=== PATIENT | female | born 2005 | race Caucasian/White ===

== ENCOUNTER → 2024-11-04 | Outpatient (CLI) | payer OTHER, SELFPAY ==
[2024-11-04 13:02] LABS: AST(SGOT) 23 U/L (<=31); Alanine Aminotransfer ALT/SGPT 23 U/L (<=34); Cholesterol 170 mg/dL (<=190); High Density Lipoprotein 53 mg/dL; Low Density Lipoprotein Calc. 96 mg/dL; Triglycerides 104 mg/dL; Very Low Density Lipoprotein 21 mg/dL (5-40); cholesterol:hdl ratio screen 3.19
== END | disposition home or self-care (01) ==
LOC: MTLAB 10:52
PROVIDERS: PCP Pediatrics; Referring Provider Physician Assistant; Visit Provider Physician Assistant
DX: L70.0 Acne vulgaris (principal); Z79.899 Other long term (current) drug therapy
CPT/HCPCS: 36415; 80061; 84450; 84460

== ENCOUNTER → 2024-11-23 | Outpatient (CLI) | payer OTHER, SELFPAY ==
[2024-11-23 16:07] LABS: Internal QC Validated? YES +Cl - CLEAR BKGD; Pregnancy, Urine Negative Negative; Record Kit Lot#,Urine Preg 947241
== END | disposition home or self-care (01) ==
LOC: MTLAB 13:54
PROVIDERS: PCP Pediatrics; Referring Provider Physician Assistant; Visit Provider Physician Assistant
DX: Z79.899 Other long term (current) drug therapy (principal)
CPT/HCPCS: 81025

== ENCOUNTER → 2025-03-08 | Outpatient (CLI) | payer OTHER, SELFPAY ==
--- OUTSIDE RECORDS SUMMARY | 2025-03-08 12:13 | XMS RPT_ITS | CCD ---
Author Organization [facility] Care Team Providers Care Rock Breaker Name Role Phone Franklyn Awan MD Primary Care Provider Franklyn Awan MD Primary Care Provider [phone] FRANKLYN AWAN Primary Care Unavailable REFERRED, SELF Referring Unavailable WILLIE PINO Attending Unavailable FRANKLYN AWAN Primary Care Unavailable WILLIE PINO Attending Unavailable WILLIE PINO Referring Unavailable RICCI DAVIS Admitting Unavailable RICCI DAVIS Attending Unavailable WILLIE PINO Referring Unavailable FRANKLYN AWAN Primary Care Unavailable WILLIE PINO Attending Unavailable RICCI DAVIS Attending Unavailable FRANKLYN AWAN Primary Care Unavailable REFERRED, SELF Referring Unavailable ROSA BARR, COLIN Hernandez Primary Care Unavailable KAELYN PREVENTIVE MEDICINE PHYSICIAN-SENIOR ASSET MANAGER, TARAH Attending Unavailcathie BENAVIDEZ PREVENTIVE MEDICINE PHYSICIAN-CNM, JAQUELIN M Attending Jimmy LEE MD, COLIN Hernandez Primary Care Unavailable Franklyn Awan MD Primary Care Provider [phone] ROSA BARR, COLIN Hernandez Primary Care Unavailable DANGELO PREVENTIVE MEDICINE PHYSICIAN-SENIOR ASSET MANAGER, ELIJHA Hoff Attending Unavail able Martínez PREVENTIVE MEDICINE PHYSICIAN.SENIOR ASSET MANAGER, Jeannie Primary Care Provider JAQUELIN BENAVIDEZ Attending Unavailable JAQUELIN BENAVIDEZ Referring Unavailable EMPERATRIZ FRANKLYN C Primary Care Unavailable PARAM BENAVIDEZICA Referring Unavailable RANDI AWANA C Primary Care Unavailable ASHLEY, JAQUELIN Referring Unavailable RANDI AWANA C Primary Care Unavailable JAQUELIN BENAVIDEZ Attending Unavailable JAQUELIN BENAVIDEZ Referring Unavailable RANDI AWANA C Primary Care Unavailable JEANNIE SOLIZ Referring Unavailable MARTÍNEZ, JEANNIE Primary Care Unavailable JEANNIE SOLIZ Attending Unavailable SELF Referring Unavailable RANDI AWANA C Primary Care Unavailable ASHLEY, JAQUELIN Referring Unavailable EMPERATRIZ, FRANKLYN C Primary Care Unavailable ASHLEY, JAQUELIN Referring Unavailable FRANKLYN AWAN C Primary Care Unavailable JAQUELIN BENAVIDEZ Attending Unavailable FRANKLYN AWAN Primary Care Unavailable Dr. Ricci Carreon MD Primary Care Provider Graf MALLORY, Zaynab Attending Provider Graf MALLORY, Zaynab Referring Provider [phone] Zaynab Sepulveda Referring Unavailable Ricci Carreon Primary Care Unavailable Graf BRANDON, Zaynab Attending Unavailable Zaynab Sepulveda Referring Unavailable Ricci Carreon Primary Care Unavailable Zaynab Sepulveda Attending Unavailable Allergies Allergy Classification Reported Allergen(s) Allergy Type Date of Onset Reaction(s) Facility (19 sources) Sulfamethoxazole / Trimethoprim; Translations: [SULFAMETHOXAZOLE-T RIMETHOPRIM] Drug Allergy 03-09-20 19 Anaphylaxis, Hives [facility] (2 sources) Sulfonamides (Antibiotic); Translations: [SULFA ANTIBIOTICS] Propensity to adverse reactions 06-16-19 20 Anaphylaxis [facility] (17 sources) Sulfonamides (Antibiotic); Translations: [SULFA (SULFONAMIDE ANTIBIOTICS)] Drug Allergy 09-29-19 21 Hives, Swelling [facility] Work Phone: (2 sources) Sulfamethoxazole Drug Allergy 06-27-19 20 UNKNOWN [facility] (2 sources) Sulfonamides (Antibiotic) Allergy to substance 06-27-19 20 UNKNOWN [facility] (2 sources) Trimethoprim Drug Allergy 06-27-19 20 UNKNOWN [facility] (1 source) Sulfamethoxazole Drug Allergy 06-27-19 [facility] (1 source) Sulfonamides (Antibiotic) Drug allergy (disorder) 06-27-19 [facility] (1 source) Trimethoprim Drug Allergy 06-27-19 20 [facility] Medications Current Medications Medication Drug Class(es) Dates Sig (Normalized) Sig (Original) adapalene 0.003 mg/mg / benzoyl peroxide 0.025 mg/mg topical gel (1 source) Retinoid Adapalene-Benzoy l Peroxide (EPIDUO FORTE) 0.3-2.5 % GEL Apply to affected area 0 Active amoxicillin 500 mg oral capsule (3 sources) Penicillin-class Antibacterial Start: 05-02-2022 take 4 capsules by mouth once as needed, then take 1 capsule by mouth every hour as needed amoxicillin (AMOXIL) 500 MG capsule Take 4 Capsules (2,000 mg) by mouth once as needed for Other (1 hour prior to dental cleaning or procedure) for up to 1 dose 4 Capsule 3 05/02/2022 Active Start: 06-27-2019 End: 07-07-2019 take 2 capsules by mouth twice daily Amoxicillin 500 mg capsule Discontinued 1000 mg PO TWICE A DAY 40 10 0 June 27, 2019 1:00am July 06, 2019 1:00am July 07, 2019 1:07am ascorbic acid 1000 mg oral tablet (2 sources) Vitamin C Start: 08-26-2024 End: 02-22-2025 take 1 tablet by mouth once daily Ascorbic Acid (VITAMIN C) 1,000 mg tablet Indications: Iron deficiency anemia due to chronic blood loss Take 1 tablet by mouth once daily. 90 tablet 1 08/26/2024 02/22/2025 Active aspirin 81 mg chewable tablet (1 source) Platelet Aggregation Inhibitor, Nonsteroidal Anti-inflammatory Drug Start: 05-02-2022 End: 05-09-2022 take 1 tablet by mouth once daily in the evening aspirin 81 MG chewable tablet Take 1 Tablet (81 mg) by mouth daily for 7 days Start tonight at 8 PM 0 05/02/2022 05/09/2022 Active Aspirin-Acetami nophen-Caffeine (EXCEDRIN MIGRAINE PO) (1 source) Aspirin-Acetamin oph en-Caffeine (EXCEDRIN MIGRAINE PO) Take by mouth 0 Active ferrous sulfate 325 mg delayed release oral tablet (9 sources) Start: 08-26-2024 End: 02-22-2025 take 1 tablet by mouth twice daily at mealtime ferrous sulfate 325 mg (65 mg iron) EC tablet Indications: Iron deficiency anemia due to chronic blood loss Take 1 tablet by mouth two times a day with meals. 180 tablet 1 08/26/2024 02/22/2025 Active End: 08-26-2024 ferrous sulfate 325 mg (65 m g iron) EC tablet Take 325 mg by mouth. 08/26/2024 Discontinued ibuprofen 200 mg oral capsule (2 sources) Nonsteroidal Anti-inflammatory Drug Start: 06-27-2019 take 1 capsule by mouth every six hours as needed Ibuprofen 200 mg capsule Active 200 mg PO EVERY 6 HOURS as needed June 27, 2019 1:00am levonorgestrel 0.545263 mg/hr intrauterine system (10 sources) Progestin, Progestin-containing Intrauterine Device Start: 02-28-2024 End: 02-26-2032 levonorgestrel (MIRENA) 21 mcg/24 hr (8 yrs) 52 mg IUD 1 Each by INTRAUTERINE route as directed. 1 Each 02/28/2024 02/26/2032 Active Start: 02-28-2024 End: 02-28-2024 1 Each, INTRAUTERINE, ONCE ( UP TO 30 DAYS AMB), 1 dose, On Sat02/28/24 at 1000, Hazardous Potential Reproductive Risk Drug: Use appropriate PPE. loratadine 10 mg oral capsule (1 source) Loratadine 10 MG CAPS Take by mouth 0 Active metroNIDAZOLE 500 mg oral tablet (3 sources) Nitroimidazole Antimicrobial Start: End: take 1 tablet by mouth twice daily metroNIDAZOLE (FLAGYL) 500 mg tablet Take 1 tablet by mouth two times a day for 7 days. 14 tablet 01/27/2024 02/03/2024 Active nitrofurantoin, macrocrystals 25 mg / nitrofurantoin, monohydrate 75 mg oral capsule (2 sources) Nitrofuran Antibacterial Start: End: take 1 capsule by mouth twice daily nitrofurantoin monohydrate and macrocrystal (MACROBID) 100 mg capsule Take 1 capsule by mouth two times a day for 7 days. 14 capsule 05/04/2024 05/11/2024 Active spironolactone 100 mg oral tablet (3 sources) Aldosterone Antagonist Start: take 1 tablet by mouth once daily spironolactone (ALDACTONE) 100 mg tablet Take 100 mg by mouth once daily. 07/20/2024 Active Completed/Discontinued Medications Medication Drug Class(es) Dates Sig (Normalized) Sig (Original) acetaminophen 500 mg oral tablet (4 sources) Start: 05-02-2022 End: 05-02-2022 acetaminophen (TYLENOL) tablet 1,000 mg Start: 07-03-2019 take 650 mg by mouth every four hours as needed for pain Acetaminophen 160 MG CHEW Take 650 mg by mouth every 4 hours as needed for Pain 0 07/03/2019 Active Start: 06-27-2019 take 1 capsule by [facility] once as needed Acetaminophen (Tylenol) 325 mg capsule Active 325 mg PO ONCE as needed June 27, 2019 1:00am calcium chloride 0.0014 meq/ml / potassium chloride 0.004 meq/ml / sodium chloride 0.103 meq/ml / sodium lactate 0.028 meq/ml injectable solution (1 source) Start: 05-02-2022 End: 05-02-2022 Lactated Ringers IV copper 313 mg drug implant (7 sources) Copper-containing Intrauterine Device Start: 10-18-2020 End: 02-28-2024 copper (PARAGARD) 380 square mm intrauterine device 1 Intra Uterine Device by INTRAUTERINE route as directed. 1 Intra Uterine Device 0 10/18/2020 07/03/2022 Discontinued Comment on above: 1 Intra Uterine Sheree ce by INTRAUTERINE route as directed. isoproterenol 6 mcg/mL in Dextrose 5% 50 mL infusion (1 source) Start: 05-02-2022 End: 05-02-2022 isoproterenol 6 mcg/mL in Dextrose 5% 50 mL infusion lactobacillus acidophilus 460 mg oral capsule (1 source) Start: 10-24-2020 End: 07-03-2022 take 1 capsule by mouth once daily Lactobacillus acidophilus (FLORAJEN ACIDOPHILUS) 20 billion cell cap Indications: Dysuria Take 1 capsule by mouth once daily. 30 capsule 0 10/24/2020 07/03/2022 Discontinued Comment on above: Take 1 capsule by [facility] once daily. phenazopyridine hydrochloride 100 mg oral tablet (1 source) Start: 10-24-2020 End: 07-03-2022 take 1 tablet by mouth three times daily as needed phenazopyridine (PYRIDIUM) 100 mg tablet Indications: Dysuria Take 1 tablet by mouth three times daily as needed. 9 tablet 0 10/24/2020 07/03/2022 Discontinued Comment on above: Take 1 tablet by [facility] three times daily as needed. 5 ml sodium chloride 9 mg/ml injection (1 source) Start: 05-02-2022 End: 05-02-2022 2 mL PRN (0.0273 ml/kg/DOSE), Intravenous, at 0-999 mL/hr, Line Care, Starting on Sat05/02/22 at 1221, For 90 days Problems Active Problems Problem Classification Problem Date Documented Date Episodic/Chronic Cardiac dysrhythmias (19 sources) AV reagan re-entry tachycardia; Translations: [Supraventricular tachycardia] Onset: 06-17-2019 Chronic Cardiac dysrhythmias (1 source) Palpitations; Translations: [Palpitations] 07-02-2019 Episodic Contraceptive and procreative management (2 sources) Intrauterine contraceptive device in situ; Translations: [Encounter for routine checking of intrauterine contraceptive device] 01-31-2024 Episodic Deficiency and other anemia (5 sources) Iron deficiency anemia due to blood loss; Translations: [Iron deficiency anemia secondary to blood loss (chronic)] Onset: 08-25-2024 08-25-2024 Chronic Deficiency and other anemia (1 source) Iron deficiency anemia secondary to blood loss (chronic); Translations: [Iron deficiency anemia due to chronic blood loss] Onset: 08-25-2024 Chronic Headache; including migraine (1 source) Migraine; Translations: [Migraine, unspecified, not intractable, without status migrainosus] Onset: 03-07-2017 03-07-2017 Chronic Immunizations and screening for infectious disease (6 sources) Patient encounter status; Translations: [Encounter for screening for infections with a predominantly sexual mode of transmission] 01-31-2024 Episodic Joint disorders and dislocations; trauma-related (1 source) Patellofemoral syndrome of left knee; Translations: [Patellofemoral disorders, left knee] Onset: 10-25-2017 10-25-2017 Chronic Lymphadenitis (5 sources) Generalized enlarged lymph nodes; Translations: [Generalized enlarged lymph nodes] Onset: 08-25-2024 08-25-2024 Episodic Nonmalignant breast conditions (1 source) Fibrocystic change of left breast; Translations: [Diffuse cystic mastopathy of left breast] Chronic Nonmalignant breast conditions (2 sources) Solitary cyst of breast; Translations: [Solitary cyst of left breast] Episodic Other aftercare (1 source) Other assisted (current) drug therapy; Translations: [Other press tender long goods (current) drug therapy] Onset: 12-08-2024 Episodic Other female genital disorders (2 sources) Abnormal uterine bleeding; Translations: [Abnormal uterine and vaginal bleeding, unspecified] 01-24-2024 Chronic Other female genital disorders (1 source) Abnormal uterine and vaginal bleeding, unspecified; Translations: [Abnormal uterine bleeding (AUB)] Onset: 01-31-2024 Chronic Other skin disorders (1 source) Acne vulgaris; Translations: [Acne vulgaris] Onset: 11-10-2024 Episodic Other upper respiratory disease (16 sources) Allergic rhinitis; Translations: [Allergic rhinitis, unspecified] Onset: 11-28-2015 11-28-2015 Chronic Past or Other Problems Problem Classification Problem Date Documented Date Episodic/Chronic Acquired foot deformities (16 sources) Talipes planus; Translations: [Flat foot [pes planus] (acquired), unspecified foot] Onset: 12-02-2013 12-02-2013 Episodic Acute posthemorrhagic anemia (2 sources) Acute posthemorrhagic anemia; Translations: [Acute posthemorrhagic anemia] Onset: 04-24-2024 04-24-2024 Episodic Genitourinary symptoms and ill-defined conditions (1 source) Hematuria, unspecified; Translations: [Hematuria, unspecified type] Onset: 05-01-2024 Episodic Syncope (16 sources) Vasovagal syncope; Translations: [Syncope and collapse] Onset: 11-30-2015 11-30-2015 Episodic Results Test Name Value Interpretation Reference Range Facility ,Urineon 11-23-2024 Beta HCG ( test) Ql (U) Negative Normal [facility] Comment on above: Result Comment: Very dilute urine specimens, as indicated by a low specific gravity, may not contain marketing development representative levels of hCG. If is still suspected, a first morning urine specimen should be collected 48 hours later and tested. Performed By: #### L 400.7600 #### [facility] [address] [place], [place], [id number] Urine testOrdered By: Zaynab Welch on 11-23-2024 HCG ( test) Ql (U) Negative [facility] Comment on above: Very dilute urine sp ecimens, as indicated by a low specificgravity, may not contain marketing development representative levels of hCG. If is still suspected, a first morning urinespecimen should be collected 48 hours later and tested. AST(SGOT)on 11-04-2024 AST [Catalytic activity/Vol] 23 U/L Normal <=31 [facility] Comment on above: Performed By: #### L 501.4100, L501.4405, L500.4100 #### [facility] [address] [place], [address] Alanine Aminotransferas (SGP T)on 11-04-2024 ALT [Catalytic activity/Vol] 23 U/L Normal <=34 [facility] Comment on above: Performed By: #### L 501.4100, L501.4405, L500.4100 #### [facility] [address] [place], [address] Calculated very low density lipoprotein (VLDL) cholesterol measurementOrdered By: Zaynab Welch on 11-04-2024 Calculated very low density lipoprotein (VLDL) cholesterol measurement 21 mg/dL 5-40 [facility] LDL calc ser/plasOrdered By: Zaynab Welch on 11-04-2024 Cholesterol in LDL [Mass/Vol] 96 mg/dL [facility] Comment on above: Rqolkphozs=969-381 m g/dL & Higher Ytcs=706 mg/dL or greater Laboratory - Chemistry and C hemistry - challengeOrdered By: Zaynab Welch on 11-04-2024 AST [Catalytic activity/Vol] 23 U/L <32 [facility] Lipid Profileon 11-04-2024 CHOL:HDL 3.19 Normal [facility] Comment on above: Performed By: #### L 501.4100, L501.4405, L500.4100 #### [facility] [address] [place], [address] Cholesterol [Mass/Vol] 170 mg/dL Normal <=190 [facility] Comment on above: Result Comment: Chol esterol level, Desirable <200 mg/dL Borderline high cholesterol 200-239 mg/dL High cholesterol >=240 mg/dL Recommendations of the NCEP Adult Treatment Panel for the following risk-cutoff thresholds for the [place] population. Performed By: #### L 501.4100, L501.4405, L500.4100 #### [facility] [address] [place], [address] Cholesterol in HDL [Mass/Vol] 53 mg/dL Normal [facility] Comment on above: Result Comment: [place] Cholesterol Education Program (NCEP) guidelines: <40 mg/dL: Low HDL-cholesterol (major risk factor for CHD) >= 60 mg/dL: High HDL-cholesterol (negative risk factor for CHD) HDL-cholesterol is affected by a number of factors, e.g. smoking, exercise, hormones, sex and age. Performed By: #### L 501.4100, L501.4405, L500.4100 #### [facility] [address] [place], [address] Cholesterol in LDL [Mass/Vol] 96 mg/dL Normal [facility] Comment on above: Result Comment: Bord poqdzg=581-813 mg/dL Higher Adyb=327 mg/dL or greater Performed By: #### L 501.4100, L501.4405, L500.4100 #### [facility] [address] [place], [address] Cholesterol in VLDL [Mass/Vol] 21 mg/dL Normal 5-40 [facility] Comment on above: Performed By: #### L 501.4100, L501.4405, L500.4100 #### [facility] [address] [place], [address] Triglyceride [Mass/Vol] 104 mg/dL Normal [facility] Comment on above: Result Comment: The drugs N-Acetylcysteine and Metamizole may falsely depress this assay. Normal range: <150 mg/dL Borderline High: 150-199 mg/dL High: 200-499 mg/dL Very High: >500 mg/dL Performed By: #### L 501.4100, L501.4405, L500.4100 #### [facility] [address] [place], [address] Screening total cholesterol/ high density lipoprotein (HDL) cholesterol ratioOrdered By: Zaynab Welch on 11-04-2024 Cholesterol.total/Ch olesterol in HDL [Mass ratio] 3.19 {ratio} [facility] Serum or plasma alanine lentz otransferase (ALT) measurementOrdered By: Zaynab Welch on 11-04-2024 ALT [Catalytic activity/Vol] 23 U/L <35 [facility] Serum or plasma cholesterol in HDL measurement (mass/volume)Ordered By: Zaynab Welch on 11-04-2024 Cholesterol in HDL [Mass/Vol] 53 mg/dL >40 [facility] Comment on above: National Cholesterol Education Program (NCEP) guidelines:<40 mg/dL: Low HDL-cholesterol (major risk factor for CHD)>= 60 mg/dL: High HDL-cholesterol (negative risk factor for CHD)HDL-cholesterol is affected by a number of factors, e.g. smoking, exercise, hormones, sex and age. Serum or plasma cholesterol measurement (mass/volume)Ordered By: Zaynab Welch on 11-04-2024 Cholesterol [Mass/Vol] 170 mg/dL <191 [facility] Comment on above: Cholesterol level, D esirable <200 mg/dLBorderline high cholesterol 200-239 mg/dLHigh cholesterol >=240 mg/dLRecommendations of the NCEP Adult Treatment Panel for the following risk-cutoff thresholds for the [place] population. Triglycerides measurementOrd ered By: Zaynab Welch on 11-04-2024 Triglyceride [Mass/Vol] 104 mg/dL <199 [facility] Comment on above: The drugs N-Acetylcy steine and Metamizole may falsely depress this assay. Normal range: <150 mg/dLBorderline High: 150-199 mg/dLHigh: 200-499 mg/dLVery High: >500 mg/dL CBC W Auto Differential pane l (Bld)on 08-25-2024 Basophils (Bld) [#/Vol] 0.03 10*3/uL Normal <0.11 [facility] Comment on above: Order Comment: Speci men Type: BLOOD SPECIMENOrdering Facility: [facility] Address: [address] [place] [address] Performed By: #### 5 7021-8, 4537-7 ####[facility] [id number] [place] [address] [place] Basophils/100 WBC (Bld) 0.5 % Normal [facility] Comment on above: Order Comment: Speci men Type: BLOOD SPECIMENOrdering Facility: [facility] Address: [address] [place] [address] Performed By: #### 5 7021-8, 4536-7 ####[facility] [id number] [place] [address] [place] Differential cell count method Nom (Bld) Auto Normal [facility] Comment on above: Order Comment: Speci men Type: BLOOD SPECIMENOrdering Facility: [facility] Address: [address] [place] [address] Performed By: #### 5 7021-8, 7 ####[facility] [id number] [place] [address] [place] Eosinophils (Bld) [#/Vol] 0.18 10*3/uL Normal <0.46 [facility] Comment on above: Order Comment: Speci men Type: BLOOD SPECIMENOrdering Facility: [facility] Address: [address] [place] [address] Performed By: #### 5 7021-8, 7 ####[facility] [id number] [place] [address] [place] Eosinophils/100 WBC (Bld) 2.9 % Normal [facility] Comment on above: Order Comment: Speci men Type: BLOOD SPECIMENOrdering Facility: [facility] Address: [address] [place] [address] Performed By: #### 5 7021-8, 7 ####[facility] [id number] [place] [address] [place] Erythrocyte distribution width (RBC) [Ratio] 18.1 % High 11.5-15.0 [facility] Comment on above: Order Comment: Speci men Type: BLOOD SPECIMENOrdering Facility: [facility] Address: [address] [place] [address] Performed By: #### 5 7021-8, 4536-7 ####[facility] [id number] [place] [address] [place] Hematocrit (Bld) [Volume fraction] 35.8 % Low 36.0-46.0 [facility] Comment on above: Order Comment: Speci men Type: BLOOD SPECIMENOrdering Facility: [facility] Address: [address] [place] [address] Performed By: #### 5 7021-8, 7-7 ####[facility] [id number] [place] [address] [place] Hemoglobin (Bld) [Mass/Vol] 11.3 g/dL Low 11.5-15.5 [facility] Comment on above: Order Comment: Speci men Type: BLOOD SPECIMENOrdering Facility: [facility] Address: [address] [place] [address] Performed By: #### 5 7021-8, 4536-7 ####[facility] [id number] [place] [address] [place] Immature granulocytes (Bld) [#/Vol] 10*3/uL Normal <0.10 [facility] Comment on above: Order Comment: Speci men Type: BLOOD SPECIMENOrdering Facility: [facility] Address: [address] [place] [address] Performed By: #### 5 7021-8, 7-7 ####[facility] [id number] [place] [address] [place] Immature granulocytes/100 WBC (Bld) 0.2 % Normal [facility] Comment on above: Order Comment: Speci men Type: BLOOD SPECIMENOrdering Facility: [facility] Address: [address] [place] [address] Performed By: #### 5 7021-8, 7-7 ####[facility] [id number] [place] [address] [place] Lymphocytes (Bld) [#/Vol] 1.92 10*3/uL Normal 1.00-4.00 [facility] Comment on above: Order Comment: Speci men Type: BLOOD SPECIMENOrdering Facility: [facility] Address: [address] [place] [address] Performed By: #### 5 7021-8, 7 ####[facility] [id number] [place] [address] [place] Lymphocytes/100 WBC (Bld) 30.8 % Normal [facility] Comment on above: Order Comment: Speci men Type: BLOOD SPECIMENOrdering Facility: [facility] Address: [address] [place] [address] Performed By: #### 5 7021-8, 7 ####[facility] [id number] [place] [address] [place] MCH (RBC) [Entitic mass] 24.4 pg Low 26.0-34.0 [facility] Comment on above: Order Comment: Speci men Type: BLOOD SPECIMENOrdering Facility: [facility] Address: [address] [place] [address] Performed By: #### 5 7021-8, 7 ####[facility] [id number] [place] [address] [place] MCHC (RBC) [Mass/Vol] 31.6 g/dL Normal 30.5-36.0 [facility] Comment on above: Order Comment: Speci men Type: BLOOD SPECIMENOrdering Facility: [facility] Address: [address] [place] [address] Performed By: #### 5 7021-8, 4536-7 ####[facility] [id number] [place] [address] [place] MCV (RBC) [Entitic vol] 77.3 fL Low 80.0-100.0 [facility] Comment on above: Order Comment: Speci men Type: BLOOD SPECIMENOrdering Facility: [facility] Address: [address] [place] [address] Performed By: #### 5 7021-8, 4536-7 ####[facility] LABCLIA [id number] [address] [address] [place] Monocytes (Bld) [#/Vol] 0.60 10*3/uL Normal <0.87 [facility] Comment on above: Order Comment: Speci men Type: BLOOD SPECIMENOrdering Facility: [facility] Address: [address] [place] [address] Performed By: #### 5 7021-8, 4536-7 ####[facility] LABCLIA [id number] [place] [address] [place] Monocytes/100 WBC (Bld) 9.6 % Normal [facility] Comment on above: Order Comment: Speci men Type: BLOOD SPECIMENOrdering Facility: [facility] Address: [address] [place] [address] Performed By: #### 5 7021-8, 4536-7 ####[facility] LABCLIA [id number] [place] [address] [place] Neutrophils (Bld) [#/Vol] 3.49 10*3/uL Normal 1.45-7.50 [facility] Comment on above: Order Comment: Speci men Type: BLOOD SPECIMENOrdering Facility: [facility] Address: [address] [place] [address] Performed By: #### 5 7021-8, 4536-7 ####[facility] LABCLIA [id number] [place] [id number] [place] Neutrophils/100 WBC (Bld) 56.0 % Normal [facility] Comment on above: Order Comment: Speci men Type: BLOOD SPECIMENOrdering Facility: [facility] Address: [address] [place] [address] Performed By: #### 5 7021-8, 7-7 ####[facility] LABCLIA [id number] [place] [address] [place] Nucleated RBC (Bld) [#/Vol] 10*3/uL Normal <0.01 [facility] Comment on above: Order Comment: Speci men Type: BLOOD SPECIMENOrdering Facility: [facility] Address: [address] [place] [address] Performed By: #### 5 7021-8, 453-7 ####[facility] LABIA [id number] [place] [address] [place] Nucleated RBC/100 WBC (Bld) [Ratio] 0.0 /100 WBC Normal [facility] Comment on above: Order Comment: Speci men Type: BLOOD SPECIMENOrdering Facility: [facility] Address: [address] [place] [address] Performed By: #### 5 7021-8, 453-7 ####[facility] LABIA [id number] [place] [address] [place] Platelet mean volume (Bld) [Entitic vol] 12.8 fL High 9.0-12.7 [facility] Comment on above: Order Comment: Speci men Type: BLOOD SPECIMENOrdering Facility: [facility] Address: [address] [place] [address] Performed By: #### 5 7021-8, 4536-7 ####[facility] LABIA [id number] [place] [id number] [place] Platelets (Bld) [#/Vol] 176 10*3/uL Normal 150-400 [facility] Comment on above: Order Comment: Speci men Type: BLOOD SPECIMENOrdering Facility: [facility] Address: [address] [place] [address] Result Comment: Resu lts checked and verified.No clot detected. Performed By: #### 5 7021-8, 7-7 ####[facility] LABCLIA [id number] [place] [id number] [place] RBC (Bld) [#/Vol] 4.63 10*6/uL Normal 3.90-5.20 [facility] Comment on above: Order Comment: Speci men Type: BLOOD SPECIMENOrdering Facility: [facility] Address: [address] [place] [address] Performed By: #### 5 7021-8, 4537-7 ####[facility] LABIA [id number] [place] [id number] [place] WBC (Bld) [#/Vol] 6.23 10*3/uL Normal 3.70-11.00 [facility] Comment on above: Order Comment: Speci men Type: BLOOD SPECIMENOrdering Facility: [facility] Address: [address] [place] [address] Performed By: #### 5 7021-8, 4537-7 ####[facility] LABIA [id number] [place] [address] [place] CNOVon 08-25-2024 CNOV Office Visit (ZULEYKAPWS ) ----- FRANK WOODRUFF ([id number]) 1 F Date Time Provider Department 08/25/24 8:00 AM JEANNIE SOLIZ During your visit today, we recorded the following information about you: Pulse Blood pressure Weight Height 75/minute 102/65 82.6 kg 1.68 m Jeannie Soliz APRN.CNP 08/25/2024 8:39 AM Signed 08/25/2024 The patient consented to the use of Svpply software for draft documentation of the visit consistent with [facility]?s Notice of Privacy Practices. HPI: Frank is a 18-year-old female with a history of SVT and two cardiac ablations, presenting for an initial visit and evaluation of intermittent lymphadenopathy. Lymphadenopathy: - Intermittent lymphadenopathy in the groin and neck, noted to be "really big" and visible at times. - Initially noticed during a recent illness, but has recurred when not sick. - Describes the lymph nodes as "very painful" to touch. - Denies current swelling in the groin or neck. SVT: - History of SVT with heart rates up to 300 bpm, requiring two cardiac ablations, the last one performed around age 15. - Missed last cardiology appointment but reports no recent episodes of tachycardia. - Describes past episodes as "wearing me out" and requiring "a bunch of compressions." Edema: - Reports morning edema, stating, "It's usually in the morning when I experience the most swelling." - Noted swelling in toes by the end of work shifts, described as like sausages." - this is chronic and a normal thing for her, not something she is concerned about Menorrhagia: - History of menorrhagia with "ginormous" blood clots prior to IUD placement. - Currently experiencing regular periods with cramping, but notes improvement: Now it's like the normal period, but like, for a normal person." Acne: - Reports worsening acne since IUD placement. Family History: - Maternal grandfather with a history of migraines. Social History: - Denies smoking, vaping, or recreational drug use. - Sexually active, using an IUD for contraception. - Engaged to be on January 30. - Currently a student at [employer], graduating in September, with plans to start a master's program in March. PAST MEDICAL HISTORY Diagnosis Date PMH - PAST MEDICAL HISTORY OF PFO and heart murmur PMH - PAST MEDICAL HISTORY OF 11/14/09 normal color vision Syncopal episodes negative workup EEG, Cardio (other than PFO), suspect vasovagal Current Outpatient Medications on File Prior to Visit Medication Sig spironolactone (ALDACTONE) 100 mg tablet Take 100 mg by mouth once daily. ferrous sulfate 325 mg (65 mg iron) EC tablet Take 325 mg by mouth. levonorgestrel (MIRENA) 21 mcg/24 hr (8 yrs) 52 mg IUD 1 Each by INTRAUTERINE route as directed. No current facility-administered medications on file prior to visit. Review of Systems: Genitourinary: (+) pelvic cramping Musculoskeletal: (+) pedal edema Skin: (+) acne Hematologic/Lymphatic: (+) painful inguinal lymphadenopathy Physical Exam: BP 102/65 (BP Site: Left Arm, BP Position: Sitting, BP Cuff Size: Regular Adult) Pulse 75 Ht 168 cm (5' 6.14") Wt 82.6 kg (182 lb 3.2 oz) LMP 04/17/2024 (Within Days) SpO2 100% BMI 29.28 kg/m? GENERAL: NAD, alert and oriented. SKIN: Unremarkable, no rash or skin lesions. HEAD: Normocephalic. EYES: PERRLA, EOMI, conjunctiva clear. EARS: External ears normal, canals clear, TM's normal. NOSE/SINUSES: Nares normal. Septum midline. OROPHARYNX: Lips, mucosa, and tongue normal, good dentition. No oral lesions noted. NECK: Supple, no lymphadenopathy, normal thyroid, no carotid bruits. LUNGS: Clear to auscultation bilaterally, no wheezes/rhonchi/rales. HEART: Regular rate and rhythm, no murmurs. No ectopy. EXTREMITIES: Normal, no deformities, no skin discoloration, no edema. NEURO: Awake, alert and oriented x3, cranial nerves II-XII grossly intact, normal gait, no involuntary motions. ABDOMEN: WNL Diagnostics Reviewed: Assessment/Plan: 1. Well adult exam (Z00.00) - Comprehensive physical examination performed. - Discussed immunizations; flu shot not necessary at this time due to end of season. Meningitis vaccine not required unless living in close quarters. - No concerns for hepatitis C or HIV. - Patient is sexually active and currently using an IUD for contraception. - Discussed potential addition of a low-dose oral contraceptive to manage acne and cramping; patient to follow up with gynecology. - No follow-up needed unless new concerns arise; annual check-ups recommended. 2. Lymphadenopathy, generalized (R59.1) - Intermittent swelling of lymph nodes, particularly in the groin area, noted. - Lymphadenopathy appears to be reactive, associated with recent illness. - Ordered lab work to rule out any underlying pathology. - Will review lab results and follow (more content not included)... Normal [facility] CRP SerPl-mCncon 08-25-2024 CRP [Mass/Vol] mg/L Normal <0.9 [facility] Comment on above: Order Comment: Speci men Type: BLOOD SPECIMENOrdering Facility: [facility] Address: [address] [place] [address] Performed By: #### 2 4323-8, 1987-09, 2275-08, ####[facility] LABCLIA [id number] [address] [address] [place] Comprehensive metabolic 2000 panelon 08-25-2024 Albumin [Mass/Vol] 4.6 g/dL Normal 3.9-4.9 [facility] Comment on above: Order Comment: Speci men Type: BLOOD SPECIMENOrdering Facility: [facility] Address: [address] [place] [address] Performed By: #### 2 4323-8, 1987-09, 2275-08, ####[facility] LABCLIA [id number] [address] [address] [place] ALP [Catalytic activity/Vol] 64 U/L Normal 34-123 [facility] Comment on above: Order Comment: Speci men Type: BLOOD SPECIMENOrdering Facility: [facility] Address: [address] [place] [address] Performed By: #### 2 4323-8, 1987-09, 2275-08, ####[facility] LABCLIA [id number] [address] [place] [address] [place] ALT [Catalytic activity/Vol] 20 U/L Normal 7-38 [facility] Comment on above: Order Comment: Speci men Type: BLOOD SPECIMENOrdering Facility: [facility] Address: [address] [place], [place] [address] Performed By: #### 2 4323-8, 1987-09, 2275-08, ####[facility] LABCLIA [id number] [address] [address] [place] Anion gap [Moles/Vol] 12 mmol/L Normal 8-15 [facility] Comment on above: Order Comment: Speci men Type: BLOOD SPECIMENOrdering Facility: [facility] Address: [address] [place], [place] [address] Performed By: #### 2 4323-8, 1987-09, 2275-08, ####[facility] LABCLIA [id number] [place] [id number] [place] AST [Catalytic activity/Vol] 26 U/L Normal 13-35 [facility] Comment on above: Order Comment: Speci men Type: BLOOD SPECIMENOrdering Facility: [facility] Address: [address] [place], [place] [address] Performed By: #### 2 4323-8, 1987-09, 2275-08, ####[facility] LABCLIA [id number] [place] [id number] [place] Bilirubin [Mass/Vol] 0.4 mg/dL Normal 0.2-1.3 [facility] Comment on above: Order Comment: Speci men Type: BLOOD SPECIMENOrdering Facility: [facility] Address: [address] [place], [place] [address] Performed By: #### 2 4323-8, 1987-09, 2275-08, ####[facility] LABCLIA [id number] [address] [address] [place] Calcium [Mass/Vol] 10.0 mg/dL Normal 8.5-10.2 [facility] Comment on above: Order Comment: Speci men Type: BLOOD SPECIMENOrdering Facility: [facility] Address: [address] [place], [place] [address] Performed By: #### 2 4323-8, 1987-09, 2275-08, ####[facility] LABCLIA [id number] [address] [address] [place] Chloride [Moles/Vol] 103 mmol/L Normal 98-107 [facility] Comment on above: Order Comment: Speci men Type: BLOOD SPECIMENOrdering Facility: [facility] Address: [address] [place], [place] [address] Performed By: #### 2 4323-8, 1987-09, 2275-08, 77384-1 ####[facility] LABCLIA [id number] [place] [id number] [place] CO2 [Moles/Vol] 22 mmol/L Normal 22-30 [facility] Comment on above: Order Comment: Speci men Type: BLOOD SPECIMENOrdering Facility: [facility] Address: [address] [place] [address] Performed By: #### 2 4323-8, 1987-09, 2275-08, 05565-7 ####[facility] LABIA [id number] [place] [id number] [place] Creatinine [Mass/Vol] 0.77 mg/dL Normal 0.58-0.96 [facility] Comment on above: Order Comment: Speci men Type: BLOOD SPECIMENOrdering Facility: [facility] Address: [address] [place] [address] Performed By: #### 2 4323-8, 1987-09, 2275-08, 75256-3 ####[facility] LABIA [id number] [place] [id number] [place] Creatinine and Glomerular filtration rate.predicted panel (S/P/Bld) 113 mL/min/1.73m??? Normal >=60 [facility] Comment on above: Order Comment: Speci men Type: BLOOD SPECIMENOrdering Facility: [facility] Address: [address] [place] [address] Result Comment: Yina mated Glomerular Filtration Rate (eGFR) is calculated using the 2020 CKD-EPI creatinine equation. This equation utilizes serum creatinine, sex, and age as parameters. The creatinine assay has traceable calibration to isotope dilution-mass spectrometry. Refer to KDIGO guidelines for clinical interpretation. In patients with unstable renal function, e.g. those with acute kidney injury, the eGFR may not accurately reflect actual GFR. Performed By: #### 2 4322-8, 1987-09, 2275-08, ####[facility] LABCLIA [id number] [facility] [address] [address] [place] Glucose [Mass/Vol] 87 mg/dL Normal 74-99 [facility] Comment on above: Order Comment: Specmiesha petit Type: BLOOD SPECIMENOrdering Facility: [facility] Address: [address] [place] [address] Result Comment: The [place] Diabetes Association (ADA) provides guidance for cutoff values for fasting glucose and random glucose. The ADA defines fasting as no caloric intake for at least 8 hours. Fasting plasma glucose results between 100 to 125 mg/dL indicate increased risk for diabetes (prediabetes). Fasting plasma glucose results greater than or equal to 126 mg/dL meet the criteria for diagnosis of diabetes. In the absence of unequivocal hyperglycemia, results should be confirmed by repeat testing. In a patient with classic symptoms of hyperglycemia or hyperglycemic crisis, random plasma glucose results greater than or equal to 200 mg/dL meet the criteria for diagnosis of diabetes. Reference: Standards of Medical Care in Diabetes 2016, [place] Diabetes Association. Diabetes Care. 2016.39(Suppl 1). Performed By: #### 2 8, 1987-09, 2275-08, ####[facility] LABCLIA [id number] [facility] [facility] GuidesSETON MEDICAL CENTERK [address] [address] [place] Potassium [Moles/Vol] 4.4 mmol/L Normal 3.7-5.1 [facility] Comment on above: Order Comment: Acosta petit Type: BLOOD SPECIMENOrdering Facility: [facility] Address: [address] [place] [address] Performed By: #### 2 4328, 1987-09, 2275-08, ####[facility] LABCLIA [id number] [address] [address] [place] Protein [Mass/Vol] 7.5 g/dL Normal 6.3-8.0 [facility] Comment on above: Order Comment: Speci men Type: BLOOD SPECIMENOrdering Facility: [facility] Address: [address] [place], [place] [address] Performed By: #### 2 4323-8, 1987-09, 2275-08, 18995-0 ####[facility] LABCLIA [id number] [address] [address] [place] Sodium [Moles/Vol] 137 mmol/L Normal 136-144 [facility] Comment on above: Order Comment: Speci men Type: BLOOD SPECIMENOrdering Facility: [facility] Address: [address] [place], [place] [address] Performed By: #### 2 4323-8, 1987-09, 2275-08, ####[facility] LABCLIA [id number] [place] [id number] [place] Urea nitrogen [Mass/Vol] 13 mg/dL Normal 7-21 [facility] Comment on above: Order Comment: Speci men Type: BLOOD SPECIMENOrdering Facility: [facility] Address: [address] [place], [place] [address] Performed By: #### 2 4323-8, 1987-09, 2275-08, 51027-2 ####[facility] LABCLIA [id number] [address] [address] [place] ESR Westergren method (Bld) [Velocity]on 08-25-2024 ESR (Bld) [Velocity] 5 mm/h Normal 0-20 [facility] Comment on above: Order Comment: Speci men Type: BLOOD SPECIMENOrdering Facility: [facility] Address: [address] [place] [address] Performed By: #### 5 7021-8, 4537-7 ####[facility] LABCLIA [id number] [address] [address] [place] Ferritin SerPl-mCncon 2024 Ferritin [Mass/Vol] 9.2 ng/mL Low 14.7-205.1 [facility] Comment on above: Order Comment: Speci men Type: BLOOD SPECIMENOrdering Facility: [facility] Address: [address] [place], [place] [address] Performed By: #### 2 4323-8, 1987-09, 2275-08, ####[facility] LABIA [id number] [address] [address] [place] Iron and Iron binding capaci ty panelon 08-25-2024 Iron [Mass/Vol] 38 ug/dL Low 41-186 [facility] Comment on above: Order Comment: Speci men Type: BLOOD SPECIMENOrdering Facility: [facility] Address: [address] [place] [address] Performed By: #### 2 4323-8, 1987-09, 2275-08, ####[facility] LABIA [id number] [place] [id number] [place] Iron binding capacity [Mass/Vol] 424 ug/dL High 232-386 [facility] Comment on above: Order Comment: Speci men Type: BLOOD SPECIMENOrdering Facility: [facility] Address: [address] [place], [place] [address] Performed By: #### 2 4323-8, 1987-09, 2275-08, ####[facility] LABIA [id number] [address] [address] [place] Iron/TIBC [Molar ratio] 9.0 % Low 15.0-57.0 [facility] Comment on above: Order Comment: Speci men Type: BLOOD SPECIMENOrdering Facility: [facility] Address: [address] [place], [place] [address] Performed By: #### 2 4323-8, 1987-09, 2275-08, 56872-0 ####[facility] [id number] [place] [address] [place] Nuclear Ab IA Ql (S)on 08-25 FLORES SCR QUAL Negative Normal Negative [facility] Comment on above: Order Comment: Speci men Type: BLOOD SPECIMENOrdering Facility: [facility] Address: [address] [place] [address] Result Comment: The qualitative antinuclear antibody screen test performed using the following antigens: dsDNA, Chromatin, Ribosomal P, SS-A 60, SS-A 52, SS-B, Sm, SmRNP, CERTIFIED REHABILITATION COUNSELOR A, CERTIFIED REHABILITATION COUNSELOR 68, Scl-70, Jodie-1, and Centromere B. Methodology: Multiplex flow immunoassay. Performed By: #### 4 7383-5 ####[facility] [id number] [address] [place] Kath 05-05-2024 [facility]phone [facility] ----- FRANK WOODRUFF ([id number]) 1 F Date Time Provider Department 05/05/24 [facility] During your visit today, we recorded the following information about you: Jeannie Soliz APRN.CNP 05/05/2024 7:50 AM Signed Ok to establish care with myself. eJannie Soliz APRN.CNP Allergies As of Date: 05/05/2024 Noted Allergy Reaction BACTRIM (SULFAMETHOXAZOLE-TRIMETH *03/09/2019 4 - Hives SULFA (SULFONAMIDE ANTIBIOTICS) 09/28/2020 4 - Hives 7 - Swelling Comments: Throat swelling and Hives Date Reviewed: 04/24/2024 Reviewed by: Lio Verduzco MA - Fully Assessed Reason for Visit: Establish Care [42] Prescriptions as of 05/05/2024 - nitrofurantoin monohydrate and macrocrystal (MACROBID) 100 mg capsule Take 1 capsule by mouth two times a day for 7 days. - ferrous sulfate 325 mg (65 mg iron) EC tablet Take 325 mg by mouth. - levonorgestrel (MIRENA) 21 mcg/24 hr (8 yrs) 52 mg IUD 1 Each by INTRAUTERINE route as directed. Problem List As Of Date 05/05/2024 Noted Resolved Pes planus [M21.40] 12/02/2013 Allergic rhinitis [J30.9] 11/28/2015 Syncope, vasovagal [R55] 11/30/2015 SVT (supraventricular tachycardia) ([facility]) [I47.1*06/17/2019 Encounter Status:Closed by JEANNIE SOLIZ on 05/05/24 [facility] Kath 05-04-2024 CNPN Telephone ([facility]) ----- FRANK WOODRUFF ([id number]) 1 F Date Time Provider Department 05/04/24 CESAR MAJANO During your visit today, we recorded the following information about you: Allergies As of Date: 05/04/2024 Noted Allergy Reaction BACTRIM (SULFAMETHOXAZOLE-TRIMETH *03/09/2019 4 - Hives SULFA (SULFONAMIDE ANTIBIOTICS) 09/28/2020 4 - Hives 7 - Swelling Comments: Throat swelling and Hives Date Reviewed: 04/24/2024 Reviewed by: Lio Verduzco MA - Fully Assessed Reason for Visit: Results [95] Order(s):nitrofurantoin monohydrate and macrocrystal (MACROBID) 100 mg capsuleTake 1 capsule by mouth two times a day for 7 days.Disp: 14 capsuleRfl: 0 Prescriptions as of 05/06/2024 - nitrofurantoin monohydrate and macrocrystal (MACROBID) 100 mg capsule Take 1 capsule by mouth two times a day for 7 days. - ferrous sulfate 325 mg (65 mg iron) EC tablet Take 325 mg by mouth. - levonorgestrel (MIRENA) 21 mcg/24 hr (8 yrs) 52 mg IUD 1 Each by INTRAUTERINE route as directed. Problem List As Of Date 05/04/2024 Noted Resolved Pes planus [M21.40] 12/02/2013 Allergic rhinitis [J30.9] 11/28/2015 Syncope, vasovagal [R55] 11/30/2015 SVT (supraventricular tachycardia) ([facility]) [I47.1*06/17/2019 Prescriptions ordered this encounter Disp Refills Start End NITROFURANTOIN MONOHYDRATE AND MACROCR* 14 c* 0 05/04/2024 05/11/2024 Route: ORAL Sig: Take 1 capsule by mouth two times a day for 7 days. Encounter Status:Closed by DOMINGA RIVERA on 05/04/24 [facility] Bacteria Culton 4 Bacteria identified Cx Nom (U) ORGANISM ID: 1 >=100,000 CFU/ml Escherichia coli ORGANISM ID: 1 (ESCHERICHIA COLI) ANTIBIOTIC INTERPRETATION MARANDA STATUS REFERENCE RANGE Ampicillin R >=32 F Susceptible <=8 , Intermediate >8 , Resistant >16 Cefazolin S <=4 F Susceptible 0-16 , Intermediate <0 or >16 , Resistant >16 For uncomplicated urinary tract infections, cefazolin results can be used to predict susceptibility or resistance to cephalexin. Ceftriaxone S <=1 F Susceptible <=1 , Intermediate >1 , Resistant >=4 Cefepime S <=1 F Susceptible <=2 , Susceptible-Dose Dependent >2 , Resistant >=16 Ertapenem S <=0.5 F Susceptible <=0.5 , Intermediate >.5 , Resistant >1 Meropenem S <=0.25 F Susceptible <=1 , Intermediate >1 , Resistant >2 Ampicillin/Sulbact I 16 F Susceptible <=8 , Intermediate >8 , Resistant >16 Piperacillin/Tazobac S <=4 F Susceptible <16 , Susceptible-Dose Dependent >=16 , Resistant >=32 Gentamicin S <=1 F Susceptible <=2 , Intermediate >2 , Resistant >=8 Tobramycin S <=1 F Susceptible <4 , Intermediate >=4 , Resistant >=8 Trimeth sulfameth R >=320 F Susceptible <=40 , Resistant >40 Ciprofloxacin S <=0.25 F Susceptible <0.5 , Intermediate >=.5 , Resistant >=1 Nitrofurantoin S <=16 F Susceptible <=32 , Intermediate >32 , Resistant >64 Abnormal [facility] Comment on above: Performed By: #### 6 30-4 ####[facility] CAMPUSIA [id number] [place] [address] [place] Urinalysis complete panel (U )on 05-01-2024 Bacteria LM.HPF (Urine sed) [#/Area] Negative Normal Negative [facility] Comment on above: Order Comment: Speci men Type: URINE SPECIMENOrdering Facility: [facility] Address: [address] [place] [address] Performed By: #### 2 4356-8 ####[facility] LABIA [id number] [place] [address] [place] Bilirubin Ql (U) Negative Normal Negative [facility] Comment on above: Order Comment: Speci men Type: URINE SPECIMENOrdering Facility: [facility] Address: [address] [place] [address] Performed By: #### 2 4356-8 ####[facility] LABCLIA [id number] [place] [address] [place] Clarity (Unsp spec) Clear Normal Clear [facility] Comment on above: Order Comment: Speci men Type: URINE SPECIMENOrdering Facility: [facility] Address: [address] [place] [address] Performed By: #### 2 4356-8 ####[facility] LABCLIA [id number] [place] [address] [place] Color (U) Yellow Normal Yellow [facility] Comment on above: Order Comment: Speci men Type: URINE SPECIMENOrdering Facility: [facility] Address: [address] [place] [address] Performed By: #### 2 4356-8 ####[facility] LABIA [id number] [place] [address] [place] Epithelial cells LM.HPF (Urine sed) [#/Area] Moderate Normal [facility] Comment on above: Order Comment: Speci men Type: URINE SPECIMENOrdering Facility: [facility] Address: [address] [place] [address] Performed By: #### 2 4356-8 ####[facility] LABCLIA [id number] [place] [address] [place] Glucose Test strip (U) [Mass/Vol] Negative Normal Negative [facility] Comment on above: Order Comment: Speci men Type: URINE SPECIMENOrdering Facility: [facility] Address: [address] [place] [address] Performed By: #### 2 4356-8 ####[facility] LABCLIA [id number] [place] [address] [place] Hemoglobin Ql (U) Negative Normal Negative [facility] Comment on above: Order Comment: Speci men Type: URINE SPECIMENOrdering Facility: [facility] Address: [address] [place] [address] Performed By: #### 2 4356-8 ####[facility] LABCLIA [id number] [place] [address] [place] Hyaline casts (Urine sed) [#/Area] 0 /[LPF] Normal 0 /LPF [facility] Comment on above: Order Comment: Speci men Type: URINE SPECIMENOrdering Facility: [facility] Address: [address] [place] [address] Performed By: #### 2 4356-8 ####[facility] LABCLIA [id number] [place] [address] [place] Ketones Ql (U) Negative Normal Negative [facility] Comment on above: Order Comment: Speci men Type: URINE SPECIMENOrdering Facility: [facility] Address: [address] [place] [address] Performed By: #### 2 4356-8 ####[facility] LABCLIA [id number] [place] [address] [place] Leukocyte esterase Test strip Ql (U) 1+ Abnormal Negative [facility] Comment on above: Order Comment: Speci men Type: URINE SPECIMENOrdering Facility: [facility] Address: [address] [place] [address] Performed By: #### 2 4356-8 ####[facility] LABCLIA [id number] [place] [address] [place] Nitrite Ql (U) Negative Normal Negative [facility] Comment on above: Order Comment: Speci men Type: URINE SPECIMENOrdering Facility: [facility] Address: [address] [place] [address] Performed By: #### 2 4356-8 ####[facility] LABCLIA [id number] [place] [address] [place] pH (U) 7.0 [pH] Normal <8.5 [facility] Comment on above: Order Comment: Speci men Type: URINE SPECIMENOrdering Facility: [facility] Address: [address] [place] [address] Performed By: #### 2 4356-8 ####[facility] LABCLIA [id number] [place] [address] [place] Protein (U) [Mass/Vol] Negative Normal Negative [facility] Comment on above: Order Comment: Speci men Type: URINE SPECIMENOrdering Facility: [facility] Address: [address] [place] [address] Performed By: #### 2 4356-8 ####[facility] LABIA [id number] [place] [address] [place] RBC LM.HPF (Urine sed) [#/Area] 0-2 /HPF Normal 0-2 /HPF [facility] Comment on above: Order Comment: Speci men Type: URINE SPECIMENOrdering Facility: [facility] Address: [address] [place] [address] Performed By: #### 2 4356-8 ####[facility] LABIA [id number] [place] [address] [place] Specific gravity (U) [Rel density] 1.015 Normal 1.005-1.030 [facility] Comment on above: Order Comment: Speci men Type: URINE SPECIMENOrdering Facility: [facility] Address: [address] [place] [address] Performed By: #### 2 4356-8 ####[facility] LABCLIA [id number] [place] [address] [place] Urobilinogen Ql (U) 0.2 EU/dL Normal 0.2-1.0 EU/dL [facility] Comment on above: Order Comment: Speci men Type: URINE SPECIMENOrdering Facility: [facility] Address: [address] [place] [address] Performed By: #### 2 4356-8 ####[facility] LABCLIA [id number] [place] [address] [place] WBC LM.HPF (Urine sed) [#/Area] 0-5 /HPF Normal 0-5 /HPF [facility] Comment on above: Order Comment: Speci men Type: URINE SPECIMENOrdering Facility: [facility] Address: [address] [place] [address] Performed By: #### 2 4356-8 ####[facility] LABCLIA [id number] [place] [address] [place] CBC W Auto Differential pane l (Bld)on 04-24-2024 Anisocytosis Ql (Bld) Present [facility] Basophils (Bld) [#/Vol] 0.00 10*3/uL [facility] Basophils/100 WBC (Bld) 0.0 % [facility] Differential cell count method Nom (Bld) Manual [facility] Eosinophils (Bld) [#/Vol] 0.27 10*3/uL [facility] Eosinophils/100 WBC (Bld) 4.0 % [facility] Erythrocyte distribution width (RBC) [Ratio] 17.9 % High 11.5 - 15.0 % [facility] Hematocrit (Bld) [Volume fraction] 37.6 % 36.0 - 46.0 % [facility] Hemoglobin (Bld) [Mass/Vol] 11.5 g/dL 11.5 - 15.5 g/dL [facility] Interpretation and review of laboratory results Abnormal [facility] Lymphocytes (Bld) [#/Vol] 1.75 10*3/uL [facility] Lymphocytes/100 WBC (Bld) 26.0 % [facility] MCH (RBC) [Entitic mass] 24.0 pg Low 26.0 - 34.0 pg [facility] MCHC (RBC) [Mass/Vol] 30.6 g/dL 30.5 - 36.0 g/dL [facility] MCV (RBC) [Entitic vol] 78.3 fL Low 80.0 - 100.0 fL [facility] Monocytes (Bld) [#/Vol] 0.67 10*3/uL [facility] Monocytes/100 WBC (Bld) 10.0 % [facility] Neutrophils (Bld) [#/Vol] 4.04 10*3/uL [facility] Neutrophils/100 WBC (Bld) 60.0 % [facility] Nucleated RBC (Bld) [#/Vol] NINF [facility] Nucleated RBC/100 WBC (Bld) [Ratio] 0.0 % /100 WBC [facility] Ovalocytes LM Ql (Bld) Few [facility] Platelet mean volume (Bld) [Entitic vol] [facility] Comment on above: Unable to Report. Platelets (Bld) [#/Vol] 95 10*3/uL Low [facility] Comment on above: Results checked and verified.Platelet count confirmed by manual review of peripheral blood smear. No clot detected. Platelets Estimate (Bld) [#/Vol] Decreased [facility] RBC (Bld) [#/Vol] 4.80 10*6/uL 3.90 - 5.2 0 m/uL [facility] RBC Fragments Few Abnormal None Seen [facility] Red Cell Morph Reviewed: see result s of individual morphologies [facility] Target cells LM Ql (Bld) Few [facility] WBC (Bld) [#/Vol] 6.74 10*3/uL [facility] This is an appended report. These results have been appended to a previously verified report. [facility] Anisocytosis Ql (Bld) Present Normal [facility] Comment on above: Order Comment: Speci men Type: BLOOD SPECIMENOrdering Facility: [facility] Address: [address] [place] [address] Performed By: #### 5 7021-8 ####[facility] [id number] [place] [id number] [place] [address] LABORATORYCLIA [id number] [address] Basophils (Bld) [#/Vol] 0.00 10*3/uL Normal <0.11 [facility] Comment on above: Order Comment: Speci men Type: BLOOD SPECIMENOrdering Facility: [facility] Address: [address] [place] [address] Performed By: #### 5 7021-8 ####[facility] MILLTOWNCLIA [id number] [address] LABORATORYCLIA [id number] [place] [address] [place] Basophils/100 WBC (Bld) 0.0 % Normal [facility] Comment on above: Order Comment: Speci men Type: BLOOD SPECIMENOrdering Facility: [facility] Address: [address] [place] [address] Performed By: #### 5 7021-8 ####[facility] JACKSONVILLEWNCLIA [id number] [address] LABORATORYCLIA [id number] [place] [address] [place] [facility] Differential cell count method Nom (Bld) Manual Normal [facility] Comment on above: Order Comment: Speci men Type: BLOOD SPECIMENOrdering Facility: [facility] Address: [address] [place] [address] Performed By: #### 5 7021-8 ####[facility]SONV[facility]LEWNCLIA [id number] [address] LABORATORYCLIA [id number] [place] [address] [place] Eosinophils (Bld) [#/Vol] 0.27 10*3/uL Normal <0.46 [facility] Comment on above: Order Comment: Speci men Type: BLOOD SPECIMENOrdering Facility: [facility] Address: [address] [place] [address] Performed By: #### 5 7021-8 ####[facility]LEWNCLIA [id number] [address] LABORATORYCLIA [id number] [place] [address] [place] Eosinophils/100 WBC (Bld) 4.0 % Normal [facility] Comment on above: Order Comment: Speci men Type: BLOOD SPECIMENOrdering Facility: [facility] Address: [address] [place] [address] Performed By: #### 5 7021-8 ####[facility]LEWNCLIA [id number] [address] LABORATORYCLIA [id number] [place] [address] [place] Erythrocyte distribution width (RBC) [Ratio] 17.9 % High 11.5-15.0 [facility] Comment on above: Order Comment: Speci men Type: BLOOD SPECIMENOrdering Facility: [facility] Address: [address] [place] [address] Performed By: #### 5 7021-8 ####[facility] [id number] [address] LABORATORYCLIA [id number] [place] [address] [place] Hematocrit (Bld) [Volume fraction] 37.6 % Normal 36.0-46.0 [facility] Comment on above: Order Comment: Speci men Type: BLOOD SPECIMENOrdering Facility: [facility] Address: [address] [place] [address] Performed By: #### 5 7021-8 ####[facility]LIA [id number] [address] LABORATORYIA [id number] [place] [address] [place] Hemoglobin (Bld) [Mass/Vol] 11.5 g/dL Normal 11.5-15.5 [facility] Comment on above: Order Comment: Speci men Type: BLOOD SPECIMENOrdering Facility: [facility] Address: [address] [place] [address] Performed By: #### 5 7021-8 ####[facility] MILLTOWNCLIA [id number] [address] LABORATORYCLIA [id number] [address] [place] Lymphocytes (Bld) [#/Vol] 1.75 10*3/uL Normal 1.00-4.00 [facility] Comment on above: Order Comment: Speci men Type: BLOOD SPECIMENOrdering Facility: [facility] Address: [address] [place] [address] Performed By: #### 5 7021-8 ####[facility]LEYDILIA [id number] [address] LABORATORYIA [id number] [address] [place] Lymphocytes/100 WBC (Bld) 26.0 % Normal [facility] Comment on above: Order Comment: Speci men Type: BLOOD SPECIMENOrdering Facility: [facility] Address: [address] [place] [address] Performed By: #### 5 7021-8 ####[facility]IA [id number] [address] LABORATORYCLIA [id number] [place] [address] [place] MCH (RBC) [Entitic mass] 24.0 pg Low 26.0-34.0 [facility] Comment on above: Order Comment: Speci men Type: BLOOD SPECIMENOrdering Facility: [facility] Address: [address] [place] [address] Performed By: #### 5 7021-8 ####[facility]LEWNCLIA [id number] [address] LABORATORYCLIA [id number] [address] STATES [facility] MCHC (RBC) [Mass/Vol] 30.6 g/dL Normal 30.5-36.0 [facility] Comment on above: Order Comment: Speci men Type: BLOOD SPECIMENOrdering Facility: [facility] Address: [address] [place] [address] Performed By: #### 5 7021-8 ####[facility]LEWNCLIA [id number] [address] LABORATORYCLIA [id number] [place] [address] [place] MCV (RBC) [Entitic vol] 78.3 fL Low 80.0-100.0 [facility] Comment on above: Order Comment: Speci men Type: BLOOD SPECIMENOrdering Facility: [facility] Address: [address] [place] [address] Performed By: #### 5 7021-8 ####[facility] [id number] [address] LABORATORYCLIA [id number] [address] Monocytes (Bld) [#/Vol] 0.67 10*3/uL Normal <0.87 [facility] Comment on above: Order Comment: Speci men Type: BLOOD SPECIMENOrdering Facility: [facility] Address: [address] [place] [address] Performed By: #### 5 7021-8 ####[facility] [id number] [address] LABORATORYCLIA [id number] [address] Monocytes/100 WBC (Bld) 10.0 % Normal [facility] Comment on above: Order Comment: Speci men Type: BLOOD SPECIMENOrdering Facility: [facility] Address: [address] [place] [address] Performed By: #### 5 7021-8 ####[facility] MILLTOWNCLIA [id number] [address] LABORATORYCLIA [id number] [place] [address] [place] Neutrophils (Bld) [#/Vol] 4.04 10*3/uL Normal 1.45-7.50 [facility] Comment on above: Order Comment: Speci men Type: BLOOD SPECIMENOrdering Facility: [facility] Address: [address] [place] [address] Performed By: #### 5 7021-8 ####[facility]ERNCLIA [id number] [address] LABORATORYCLIA [id number] [place] [address] [place] Neutrophils/100 WBC (Bld) 60.0 % Normal [facility] Comment on above: Order Comment: Speci men Type: BLOOD SPECIMENOrdering Facility: [facility] Address: [address] [place] [address] Performed By: #### 5 7021-8 ####[facility]ACKSONV[facility]LEWNCLIA [id number] [address] LABORATORYCLIA [id number] [place] [address] [place] Nucleated RBC (Bld) [#/Vol] 10*3/uL Normal <0.01 [facility] Comment on above: Order Comment: Speci men Type: BLOOD SPECIMENOrdering Facility: [facility] Address: [address] [place] [address] Performed By: #### 5 7021-8 ####[facility]ACKSONVILLEWNCLIA [id number] [address] LABORATORYCLIA [id number] [place] [address] [place] Nucleated RBC/100 WBC (Bld) [Ratio] 0.0 /100 WBC Normal [facility] Comment on above: Order Comment: Speci men Type: BLOOD SPECIMENOrdering Facility: [facility] Address: [address] [place] [address] Performed By: #### 5 7021-8 ####[facility] MILLTOWNCLIA [id number] [address] LABORATORYCLIA [id number] [place] [address] [place] Ovalocytes LM Ql (Bld) Few Normal [facility] Comment on above: Order Comment: Speci men Type: BLOOD SPECIMENOrdering Facility: [facility] Address: [address] [place] [address] Performed By: #### 5 7021-8 ####[facility]LEWNCLIA [id number] [address] LABORATORYCLIA [id number] [place] [address] [place] Platelet mean volume (Bld) [Entitic vol] Normal [facility] Comment on above: Order Comment: Speci men Type: BLOOD SPECIMENOrdering Facility: [facility] Address: [address] [place] [address] Result Comment: Unab le to Report. Performed By: #### 5 7021-8 ####[facility] MILLWNCLIA [id number] [address] LABORATORYCLIA [id number] [place] [address] [place] Platelets (Bld) [#/Vol] 95 10*3/uL Low 150-400 [facility] Comment on above: Order Comment: Speci men Type: BLOOD SPECIMENOrdering Facility: [facility] Address: [address] [place] [address] Result Comment: Resu lts checked and verified.Platelet count confirmed by manual review of peripheral blood smear. No clot detected. Performed By: #### 5 7021-8 ####[facility]CLIA [id number] [address] LABORATORYCLIA [id number] [place] [address] [place] Platelets Estimate (Bld) [#/Vol] Decreased Normal [facility] Comment on above: Order Comment: Speci men Type: BLOOD SPECIMENOrdering Facility: [facility] Address: [address] [place] [address] Performed By: #### 5 7021-8 ####[facility] [id number] [address] LABORATORYCLIA [id number] [place] [address] [place] RBC (Bld) [#/Vol] 4.80 10*6/uL Normal 3.90-5.20 [facility] Comment on above: Order Comment: Speci men Type: BLOOD SPECIMENOrdering Facility: [facility] Address: [address] [place] [address] Performed By: #### 5 7021-8 ####[facility] [id number] [address] LABORATORYCLIA [id number] [address] [place] RBC FRAGMENTS Few Abnormal None Seen [facility] Comment on above: Order Comment: Speci men Type: BLOOD SPECIMENOrdering Facility: [facility] Address: [address] [place] [address] Performed By: #### 5 7021-8 ####[facility]CLIA [id number] [address] LABORATORYCLIA [id number] [place] [address] [place] RED CELL MORPH Reviewed: see result s of individual morphologies Normal [facility] Comment on above: Order Comment: Speci men Type: BLOOD SPECIMENOrdering Facility: [facility] Address: [address] [place] [address] Performed By: #### 5 7021-8 ####[facility]SON[facility]LEWNCLIA [id number] [address] LABORATORYIA [id number] [address] [place] Target cells LM Ql (Bld) Few Normal [facility] Comment on above: Order Comment: Speci men Type: BLOOD SPECIMENOrdering Facility: [facility] Address: [address] [place] [address] Performed By: #### 5 7021-8 ####[facility]LEYDILIA [id number] [address] LABORATORYCLIA [id number] [address] [place] WBC (Bld) [#/Vol] 6.74 10*3/uL Normal 3.70-11.00 [facility] Comment on above: Order Comment: Speci men Type: BLOOD SPECIMENOrdering Facility: [facility] Address: [address] [place] [address] Performed By: #### 5 7021-8 ####[facility] MILLWNCLIA [id number] [address] LABORATORYCLIA [id number] [address] [place] CNOVon 04-24-2024 CNOV Office Visit (OBGYWM ) ----- FRANK WOODRUFF ([id number]) 1 F Date Time Provider Department 04/24/24 9:30 AM JAQUELIN BENAVIDEZ OBGYWM During your visit today, we recorded the following information about you: Blood pressure Weight Last Period 110/70 82.6 kg 04/17/24 Jaquelin Benavidez APRN.CN 04/26/2024 10:01 AM Signed Service Delivery Manager offered: Patient declines. Frank Woodruff presents today for IUD check. She had a Mirena placed on 02/28/2024. She has had heavy bleeding since placement but then slowed down. Thinks she just had an actual period and pain significantly improved since paragard. Would like to continue and happy at this time. REVIEW OF SYSTEMS: PAIN ASSESSMENT: Negative for pain, history of chronic pain, or current treatment for a chronic pain condition. SENSITIVE EXAM: The sensitive examination was discussed with the Patient or Patient's Authorized Yarn Handler. As applicable, any other physician, advance practice provider, medical student, or other health professional student that will be observing or involved in the sensitive examination for educational or training purposes was discussed with the Patient or Authorized Yarn Handler. The Patient or Authorized Yarn Handler has agreed to proceed with the sensitive examination. (Sensitive examination includes inspection and/or palpation of the breasts, pelvis, prostate and anorectal regions). PHYSICAL EXAMINATION: BP 110/70 Wt 182 lb (82.6kg) LMP 04/17/2024 ABDOMEN:soft, non-tender, no masses, no hepatosplenomegaly, and no lymphadenopathy EXTERNAL GENITALIA: Normal genitalia and Bartholins, Urethra, Sken'e normal CERVIX: smooth, no lesions. IUD strings visible. UTERUS: normal size, mid-plane, regular, and non-tender ADNEXA: negative for tenderness or masses 01/24/24 Hgb 10.5 IMPRESSION/PLAN: IUD correctly positioned. Patient counseled regarding monthly string check. Follow up for annual exam or sooner if needed. CBC repeated today SANTI Bernal Jessica, APRN.CNM 04/24/2024 10:06 AM Signed Take iron with Vitamin C 500mg by mouth once daily Jaquelin Benavidez APRN.CNM 04/28/2024 12:42 PM Signed Addended by: JAQUELIN BENAVIDEZ on: 04/28/2024 12:42 PM Modules accepted: Orders Allergies As of Date: 04/24/2024 Noted Allergy Reaction BACTRIM (SULFAMETHOXAZOLE-TRIMETH *03/09/2019 4 - Hives SULFA (SULFONAMIDE ANTIBIOTICS) 09/28/2020 4 - Hives 7 - Swelling Comments: Throat swelling and Hives Date Reviewed: 04/24/2024 Reviewed by: Lio Verduzco MA - Fully Assessed Reason for Visit: IUD check [Other] Primary Visit Diagnosis:Surveillance of previously prescribed intrauterine contraceptive device [Z30.431] Other Visit Diagnoses:Acute blood loss anemia [D62] Thrombocytopenia (HCC) [D69.6] Order(s):COMPLETE BLOOD COUNT AND DIFFERENTIAL [SQCBCDIF] Order #: [id number] FUTURE IRON AND TIBC [SQIRON] Order #: [id number] FUTURE FERRITIN [SQFERR] Order #: [id number] FUTURE BLOOD MANAGEMENT REFERRAL [[id number]] Reflex Order#: [id number] (Ord#:[id number])Qty: 1 Prescriptions as of 04/28/2024 - ferrous sulfate 325 mg (65 mg iron) EC tablet Take 325 mg by mouth. - levonorgestrel (MIRENA) 21 mcg/24 hr (8 yrs) 52 mg IUD 1 Each by INTRAUTERINE route as directed. Problem List As Of Date 04/24/2024 Noted Resolved Pes planus [M21.40] 12/02/2013 Allergic rhinitis [J30.9] 11/28/2015 Syncope, vasovagal [R55] 11/30/2015 SVT (supraventricular tachycardia) ([facility]) [I47.1*06/17/2019 Other instructions from your clinician: Take iron with Vitamin C 500mg by mouth once daily Disposition: Return in 1 year (on 04/24/2025) for Annual Exam. Follow-up and Disposition History for Encounter Date Provider Department Center 04/24/2024 [id number], JESSICA PUSHPA Arriaga Encounter Status:Closed by JAQUELIN BENAVIDEZ on 04/26/24 Normal [facility] FERRITINon 04-24-2024 Ferritin [Mass/Vol] 9.3 ng/mL Low 14.7 - 2 05.1 ng/mL [facility] Ferritin SerPl-mCncon 2023 Ferritin [Mass/Vol] 9.3 ng/mL Low 14.7-205.1 [facility] Comment on above: Order Comment: Speci men Type: BLOOD SPECIMENOrdering Facility: [facility] Address: [address] [place] [address] Performed By: #### 5 0190-8, 2275- ####[facility] LABCLIA [id number] [place] [address] [place] Ferritin [Mass/Vol]on 2023 Interpretation and review of laboratory results Abnormal [facility] Iron and Iron binding capaci ty panelon 04-24-2024 Interpretation and review of laboratory results Abnormal [facility] Iron [Mass/Vol] 44 ug/dL 41 - 186 ug/dL [facility] Iron binding capacity [Mass/Vol] 467 ug/dL High 232 - 386 ug/dL [facility] Iron/TIBC [Molar ratio] 9.4 % Low 15.0 - 57.0 % [facility] Iron [Mass/Vol] 44 ug/dL Normal 41-186 [facility] Comment on above: Order Comment: Speci men Type: BLOOD SPECIMENOrdering Facility: [facility] Address: [address] [place] [address] Performed By: #### 5 0190-8, 2275- ####[facility] LABCLIA [id number] [place] [address] [place] Iron binding capacity [Mass/Vol] 467 ug/dL High 232-386 [facility] Comment on above: Order Comment: Speci men Type: BLOOD SPECIMENOrdering Facility: [facility] Address: [address] [id number] Performed By: #### 5 0190-8, 2276-4 ####[facility] [id number] [place] [address] [place] Iron/TIBC [Molar ratio] 9.4 % Low 15.0-57.0 [facility] Comment on above: Order Comment: Speci men Type: BLOOD SPECIMENOrdering Facility: [facility] Address: [address] [id number] Performed By: #### 5 0190-8, 2276-4 ####[facility] LABIA [id number] [place] [id number] [place] CNOVon 02-28-2024 CNOV Office Visit (OBGYWM ) ----- FRANK WOODRUFF ([id number]) 1 F Date Time Provider Department 02/28/24 9:30 AM JAQUELIN BENAVIDEZ OBLUIS During your visit today, we recorded the following information about you: Blood pressure Weight Last Period 110/62 81.2 kg 01/17/24 Jaquelin Benavidez APRN.CNMeghan 02/28/2024 10:09 AM Addendum Frank presents for removal of IUD due to partial expulsion. UNIVERSAL PROTOCOL / SAFETY CHECKLIST Procedure to be Performed: IUD removal Sign In: A Moment of CARE was completed. Personnel directly involved with the procedure wore the appropriate PPE (Personal Protective Equipment). No special equipment needed. Patient/Surrogate Stated/Verified: PATIENT VERIFIED(optional for EMERGENT procedures): Patient name, Date of , Relevant allergies, and The intended procedure Time Out Communication: Intended patient and procedure match the source documents. Consent documented and matches the intended procedure. No relevant labs, photos, and/or imaging studies were applicable for review. Correct side/site marked and visible. Medications required for procedure verified. No fire risk assessment and interventions applicable. Implant(s) inserted: Correct implant(s) confirmed including size and side. and Expiration date(s) reviewed. Sign Out: SIGN OUT (optional for EMERGENT procedures): No specimen collected. All instruments, equipment, possible retained foreign bodies accounted for. Post-procedure follow-up management communicated and Plan of Care Visit completed when applicable. PROCEDURE: Speculum placed in vagina, IUD string visualized and grasped with ring forceps. ASSESSMENT/PLAN: IUD removed without difficulty, intact, and patient tolerated procedure well. Contraception plans: Mirena IUD Reviewed pre-conception guidelines including folic acid supplementation, optimal timing of intercourse, avoidance of smoking, alcohol, exposure to environmental chemicals and need for evaluation if not within 12 months. Jaquelin Benavidez APRN.CARMINA Hugo presents today for IUD insertion for contraception. Patient's last menstrual period was 01/17/2024 (exact date). GC/chlamydia: Not done: no risk factors and/or patient declines screening test: Paraguard IUD not Side effects including irregular bleeding were discussed with the patient. The patient understands that it should be removed in 8 years or sooner if the patient desires a . IUD source: office provided IUD lot #: [id number] Exp date: 01/17/2026 The cervix was prepped with betadine. The uterus sounded to 8 cm and the uterus is Midposition.. Using sterile technique, the Mirena IUD was inserted without difficulty and the string was cut to 3cm from the external os of the cervix. Patient tolerated procedure well. PLAN: Patient was advised to observe for signs and symptoms of infection including but not limited to fever, malodorous vaginal discharge and/or pain. The patient was told to check the string monthly for accurate placement. Bleeding expectations were reviewed. Follow up in one month. SANTI Bernal Morgan, MA 02/28/2024 9:36 AM Signed POST IUD INSTRUCTIONS You may have irregular bleeding during the first 3 months of use. You may have mild-severe cramping for the next 48 hours. You may use over the counter medication (Motrin, Tylenol) as needed. Your IUD must be removed or replaced based on the following table: IUD Type Removed or replaced within: Olimpia 3 years Kyleena 5 years Mirena 8 years Liletta 8 years Paragard 10 years Call the office for signs/symptoms of infection such as severe cramping, fever, or unusual bleeding. Check for string placement as instructed by your doctor. If you have any additional questions, please contact the office. Referring Provider: JAQUELIN BENAVIDEZ [[id number]] Allergies As of Date: 02/28/2024 Noted Allergy Reaction BACTRIM (SULFAMETHOXAZOLE-TRIMETH *03/09/2019 4 - Hives SULFA (SULFONAMIDE ANTIBIOTICS) 09/28/2020 4 - Hives 7 - Swelling Comments: Throat swelling and Hives Date Reviewed: 02/28/2024 Reviewed by: Lio Verduzco MA - Fully Assessed Reason for Visit: IUD Removal [1950] Insertion Of IUD [291] Primary Visit Diagnosis:Encounter for IUD removal [Z30.432] Other Visit Diagnosis:Encounter for IUD insertion [Z30.430] Order(s):REMOVE INTRAUTERINE DEVICE [[id number]] Order #: [id number] INSERT INTRAUTERINE DEVICE [[id number]] Order #: [id number] [] levonorgestrel 21 mcg/24 hr (8 yrs) 52 mg 1 Each intrauterine device (MIRENA)Disp: Rfl: levonorgestrel (MIRENA) 21 mcg/24 hr (8 yrs) 52 mg IUD1 Each by INTRAUTERINE route as directed.Disp: 1 EachRfl: 0 Prescriptions as of 02/28/2024 - ferrous sulfate 325 mg (65 mg iron) EC tablet Take 325 mg by mouth. - levonorgestrel (MIRENA) 21 mcg/24 hr (8 yrs) 52 mg IUD 1 E (more content not included)... Normal [facility] Kath 02-06-2024 CNPN Telephone (OBGYWM) ----- FRANK WOODRUFF ([id number]) 1 F Date Time Provider Department 02/06/24 JAQUELIN BENAVIDEZ During your visit today, we recorded the following information about you: Whit Maxwell RN 02/06/2024 1:40 PM Signed ----- Message from Jaquelin Benavidez APRN.CNM sent at 02/06/2024 12:50 PM EDT ----- Please assist patient in making appointment for paragard removal and mirena insertion if she desires. SANTI Bernal Tara, RN 02/06/2024 1:45 PM Signed Pt has appt with VERONICA 02/11/24 AND wants Paragard removed then. Pt unsure if she wants Mirena placed and states she will discuss this with VERONICA at her visit and if necessary, will schedule another appt to get placed. DANII Rowan Jessica, APRN.CNM 02/10/2024 10:57 AM Signed Jaquelin Lacy APRN.CNM Allergies As of Date: 02/06/2024 Noted Allergy Reaction BACTRIM (SULFAMETHOXAZOLE-TRIMETH *03/09/2019 4 - Hives SULFA (SULFONAMIDE ANTIBIOTICS) 09/28/2020 4 - Hives 7 - Swelling Comments: Throat swelling and Hives Date Reviewed: 01/24/2024 Reviewed by: Jaquelin Benavidez APRN.CNM - Fully Assessed Reason for Visit: Appointment [186] Primary Visit Diagnosis:Encounter for IUD removal [Z30.432] Order(s):REMOVE INTRAUTERINE DEVICE [[id number]] Order #: [id number] Prescriptions as of 02/10/2024 - copper (PARAGARD) 380 square mm intrauterine device 1 Intra Uterine Device by INTRAUTERINE route. Problem List As Of Date 02/06/2024 Noted Resolved Pes planus [M21.40] 12/02/2013 Allergic rhinitis [J30.9] 11/28/2015 Syncope, vasovagal [R55] 11/30/2015 SVT (supraventricular tachycardia) (HCC) [I47.1*06/17/2019 Encounter Status:Closed by BROOK BLUE [facility] FRANK WOODRUFF ([id number]) 1 F Date Time Provider Department 02/04/24 JAQUELIN BENAVIDEZ During your visit today, we recorded the following information about you: Brook Blue RN 02/04/2024 11:24 AM Addendum ----- Message from Jaquelin Benavidez APRN.CNM sent at 02/04/2024 9:46 AM EDT ----- Reviewed. Zuora message sent to patient Gamal Hugo, in reviewing your ultrasound, your IUD has shifted lower into the uterus, with possibility of one of the IUD arms in the uterine lining. I would recommend changing your appointment to a in person visit. I can remove the IUD and then need to decide if you want a Mirena placed or try another control option to control bleeding. Let me know your thoughts. Jaquelin Benavidez APRN.Brook Fuller RN 02/04/2024 11:24 AM Signed Patient hasn't been on mychart in over 1 year. Called and spoke to mother. States patient is at work and planning to call office back during lunch break. She stated patient also wanted help setting up mychart again. Updated her phone numbers, but need updated email too. DANII Francois Trisha, RN 02/06/2024 3:54 PM Signed See 02/06/24 phone note. Appointment was switched. Brook Blue RN Allergies As of Date: 02/04/2024 Noted Allergy Reaction BACTRIM (SULFAMETHOXAZOLE-TRIMETH *03/09/2019 4 - Hives SULFA (SULFONAMIDE ANTIBIOTICS) 09/28/2020 4 - Hives 7 - Swelling Comments: Throat swelling and Hives Date Reviewed: 01/24/2024 Reviewed by: Jaquelin Benavidez APRN.CNM - Fully Assessed Reason for Visit: Results [95] Prescriptions as of 02/06/2024 - copper (PARAGARD) 380 square mm intrauterine device 1 Intra Uterine Device by INTRAUTERINE route. Problem List As Of Date 02/04/2024 Noted Resolved Pes planus [M21.40] 12/02/2013 Allergic rhinitis [J30.9] 11/28/2015 Syncope, vasovagal [R55] 11/30/2015 SVT (supraventricular tachycardia) ([facility]) [I47.1*06/17/2019 Encounter Status:Closed by BROOK BLUE on 02/06/24 Normal [facility] US Pelvison 02-03-2024 Indication Abnormal uterine bleeding, pelvic pain Impression Normal appearing anteverted uterus that measures 85 mm x 29 mm x 44 mm. Endometrium has a normal trilaminar appearance and measures 4.6 mm. 3D rendering of the uterus demonstrates a malpositioned IUD with the device positioned incorrectly, too low in the cavity, left arm seen within the myometrium. Both ovaries are visualized and appear normal with follicular change. No adnexal masses were observed. There is no free fluid visualized in the peritoneal cavity. Recommendations Malpositioned IUD. Follow up as clinically indicated. Menstrual History LMP on 01/14/2024. Cycle: irregular cycle. Contraception: Intrauterine contraceptive device Method Transabdominal, transvaginal, 3D ultrasound examination, Color Doppler examination. View: Adequate visualization Uterus Uterus: Visualized Uterus position: anteverted Description of uterine malformations: none Myometrium: normal Endometrium: three-layer pattern Cervix details: normal Uterus length 85 mm Uterus width 44 mm Uterus height 29 mm Uterus Vol 57.4 cm Endometrial thickness, total 4.6 mm IUCD Position control IUCD type: Paragard. Location: positioned incorrectly, too low in the cavity, left arm seen within the myometrium. Fundus - IUCD 26.5 mm. Internal os - IUCD 19.0 mm Right Ovary Rt ovary: Visualized Rt ovary morphology: premenopausal normal follicular Rt ovary D1 35 mm Rt ovary D2 18 mm Rt ovary D3 17 mm Rt ovary Vol 5.3 cm Left Ovary Lt ovary: Visualized Lt ovary morphology: premenopausal normal follicular Lt ovary D1 39 mm Lt ovary D2 18 mm Lt ovary D3 15 mm Lt ovary Vol 5.5 cm Cul de Sac Visualized. no free fluid visualized Performed By: Arlette Hendrix RDMS Read By: Laura Murray M.D. MATERNAL MEDICINE [facility] US Pelvison 01-31-2024 Radiology Study observation (narrative) [facility] CNPNon 01-27-2024 CNPN Telephone (OBGYWM) ----- FRANK WOODRUFF ([id number]) 1 F Date Time Provider Department 01/27/24 JAQUELIN BENAVIDEZ During your visit today, we recorded the following information about you: Brook Blue RN 01/27/2024 4:57 PM Addendum ----- Message from Jaquelin Benavidez APRN.CNM sent at 01/27/2024 11:47 AM EDT ----- Positive BV, mychart message sent to patient for treatment information. Will treat with Flagyl 500mg PO BID x 7 days. SANTI Bernal You tested positive for bacterial vaginosis. This is an imbalance of your normal bacteria. Your partner dose not need treated. I will send a prescription for Flagyl 500mg by mouth twice a day for 7 days. 1) No alcohol during treatment and for 72 hours after last dose. 2) No intercourse during treatment. 3) Probiotic by mouth once daily for 30 days or as needed. Please let me know if you have any questions. SANTI Bernal Trisha, RN 01/27/2024 4:57 PM Signed Patient has not used mychart in over 1 year. Left message for patient to call office. DANII Francois Jennifer, RN 01/28/2024 8:08 AM Signed Patient notified. Nuzhat Odom RN Allergies As of Date: 01/27/2024 Noted Allergy Reaction BACTRIM (SULFAMETHOXAZOLE-TRIMETH *03/09/2019 4 - Hives SULFA (SULFONAMIDE ANTIBIOTICS) 09/28/2020 4 - Hives 7 - Swelling Comments: Throat swelling and Hives Date Reviewed: 01/24/2024 Reviewed by: Jaquelin Benavidez APRN.CNM - Fully Assessed Reason for Visit: Results [95] Prescriptions as of 01/28/2024 - metroNIDAZOLE (FLAGYL) 500 mg tablet Take 1 tablet by mouth two times a day for 7 days. - copper (PARAGARD) 380 square mm intrauterine device 1 Intra Uterine Device by INTRAUTERINE route. Problem List As Of Date 01/27/2024 Noted Resolved Pes planus [M21.40] 12/02/2013 Allergic rhinitis [J30.9] 11/28/2015 Syncope, vasovagal [R55] 11/30/2015 SVT (supraventricular tachycardia) (HCC) [I47.1*06/17/2019 Encounter Status:Closed by NUZHAT ODOM on 01/28/24 Normal [facility] FERRITINon 01-25-2024 Ferritin [Mass/Vol] 9.1 ng/mL Low 14.7 - 2 05.1 ng/mL [facility] Ferritin [Mass/Vol]on 2023 Interpretation and review of laboratory results Abnormal [facility] Iron and Iron binding capaci ty panelon 01-25-2024 Interpretation and review of laboratory results Abnormal [facility] Iron [Mass/Vol] 18 ug/dL Low 41 - 186 ug/dL [facility] Iron binding capacity [Mass/Vol] 448 ug/dL High 232 - 386 ug/dL [facility] Iron/TIBC [Molar ratio] 4.0 % Low 15.0 - 57.0 % [facility] No Panel Informationon 01-24 Interpretation and review of laboratory results Normal [facility] PROLACTINon 01-25-2024 Prolactin [Mass/Vol] 12.6 ng/mL 4.5 - 2 6.8 ng/mL [facility] Comment on above: Prolactin test is pe rformed using the [employer] Electrochemiluminescence Immunoassay method. Results obtained with different methods or kits cannot be used interchangeably. THYROID STIMULATING HORMONEo n 01-25-2024 TSH Qn 1.200 m[IU]/L [facility] Comment on above: If the patient is pr egnant, TSH reference range varies by gestational period: First Trimester (weeks 9-12): 0.180-2.990 mIU/L Second Trimester: 0.110-3.980 mIU/L Third Trimester: 0.480-4.710 mIU/L David Pepper et al. A Practical Approach for the Verifications and Determination of Site- and Trimester-Specific Reference Intervals for Thyroid Function tests in . Thyroid, 2019:29:3:412-420. Evan Ashley, et al. 2017 Guidelines of the [place] [employer] for the Diagnosis and Management of Thyroid Disease during and the . Thyroid, 2017:27:3:315-389. BACTERIAL VAGINOSIS NAATon 0 01-24-2024 Interpretation and review of laboratory results Abnormal [facility] Lactobacillus crispatus+gasseri+je nsenii + Gardnerella vaginalis + Atopobium vaginae rRNA PATRICIA+probe Ql (Vag fld) Positive Abnormal Negative for bacterial vaginosis [facility] Lactobacillus crispatus+gasseri+je nsenii + Gardnerella vaginalis + Atopobium vaginae rRNA PATRICIA+probe Ql (Vag fld) Positive Abnormal Negative for bacterial vaginosis [facility] Comment on above: Order Comment: Speci men Type: SWABOrdering Facility: [facility] Address: [address] [place] [address] Performed By: #### 3 6902-5, BVAMP ####[facility] LABCLIA [id number] [place] [address] [place] C. trachomatis+N. gonorrhoea e DNA PATRICIA+probe Ql (Unsp spec)on 01-24-2024 C. trachomatis rRNA PATRICIA+probe Ql (Unsp spec) Negative Negative for Chlamydia trachomatis by amplificaton [facility] Interpretation and review of laboratory results Normal [facility] N. gonorrhoeae rRNA PATRICIA+probe Ql (Unsp spec) Negative Negative for Neisseria gonorrhoeae by amplification [facility] C. trachomatis rRNA PATRICIA+probe Ql (Unsp spec) Negative Normal Negative for Chlamydia trachomatis by amplificaton [facility] Comment on above: Order Comment: Speci men Type: SWABOrdering Facility: [facility] Address: [address] [place] [address] Performed By: #### 3 6902-5, BVAMP ####[facility] LABCLIA [id number] [place] [address] [place] N. gonorrhoeae rRNA PATRICIA+probe Ql (Unsp spec) Negative Normal Negative for Neisseria gonorrhoeae by amplification [facility] Comment on above: Order Comment: Speci men Type: SWABOrdering Facility: [facility] Address: [address] [place] [address] Performed By: #### 3 6902-5, BVAMP ####[facility] LABCLIA [id number] [place] [address] [place] MARGARET/TRICHOMONAS NAATon 0 01-24-2024 C. glabrata RNA PATRICIA+probe Ql (Vag fld) Negative Negative for Margaret glabrata [facility] Margaret sp DNA PATRICIA+probe Ql (Vag fld) Negative Negative for Margaret species [facility] Interpretation and review of laboratory results Normal [facility] T. vaginalis DNA PATRICIA+probe Ql (Unsp spec) Negative Negative for Trichomonas vaginalis by amplification [facility] C. glabrata RNA PATRICIA+probe Ql (Vag fld) Negative Normal Negative for Margaret glabrata [facility] Comment on above: Order Comment: Speci men Type: SWABOrdering Facility: [facility] Address: [address] [place] [address] Performed By: #### C VTV ####[facility] LABCLIA [id number] [place] [address] [place] Margaret sp DNA PATRICIA+probe Ql (Vag fld) Negative Normal Negative for Margaret species [facility] Comment on above: Order Comment: Speci men Type: SWABOrdering Facility: [facility] Address: [address] [place] [address] Performed By: #### C VTV ####[facility] LABCLIA [id number] [place] [address] [place] T. vaginalis DNA PATRICIA+probe Ql (Unsp spec) Negative Normal Negative for Trichomonas vaginalis by amplification [facility] Comment on above: Order Comment: Speci men Type: SWABOrdering Facility: [facility] Address: [address] [place] [address] Performed By: #### C VTV ####[facility] LABCLIA [id number] [address] [place] [address] [place] CBC W Auto Differential pane l (Bld)on 01-24-2024 Basophils (Bld) [#/Vol] NINF [facility] Basophils/100 WBC (Bld) 0.4 % [facility] Differential cell count method Nom (Bld) Auto [facility] Eosinophils (Bld) [#/Vol] 0.08 10*3/uL [facility] Eosinophils/100 WBC (Bld) 1.6 % [facility] Erythrocyte distribution width (RBC) [Ratio] 18.1 % High 11.5 - 15.0 % [facility] Hematocrit (Bld) [Volume fraction] 34.3 % Low 36.0 - 46.0 % [facility] Hemoglobin (Bld) [Mass/Vol] 10.5 g/dL Low 11.5 - 15.5 g/dL [facility] Immature granulocytes (Bld) [#/Vol] [facility] Immature granulocytes/100 WBC (Bld) 0.2 % [facility] Interpretation and review of laboratory results Abnormal [facility] Lymphocytes (Bld) [#/Vol] 1.66 10*3/uL [facility] Lymphocytes/100 WBC (Bld) 32.6 % [facility] MCH (RBC) [Entitic mass] 22.5 pg Low 26.0 - 34.0 pg [facility] MCHC (RBC) [Mass/Vol] 30.6 g/dL 30.5 - 36.0 g/dL [facility] MCV (RBC) [Entitic vol] 73.4 fL Low 80.0 - 100.0 fL [facility] Monocytes (Bld) [#/Vol] 0.59 10*3/uL [facility] Monocytes/100 WBC (Bld) 11.6 % [facility] Neutrophils (Bld) [#/Vol] 2.73 10*3/uL [facility] Neutrophils/100 WBC (Bld) 53.6 % [facility] Nucleated RBC (Bld) [#/Vol] NINF [facility] Nucleated RBC/100 WBC (Bld) [Ratio] 0.0 % /100 WBC [facility] Platelet mean volume (Bld) [Entitic vol] 11.3 fL 9.0 - 12.7 fL [facility] Platelets (Bld) [#/Vol] 248 10*3/uL [facility] RBC (Bld) [#/Vol] 4.67 10*6/uL 3.90 - 5.2 0 m/uL [facility] WBC (Bld) [#/Vol] 5.09 10*3/uL [facility] Basophils (Bld) [#/Vol] 10*3/uL Normal <0.11 [facility] Comment on above: Order Comment: Speci men Type: BLOOD SPECIMENOrdering Facility: [facility] Address: [address] [place] [address] Performed By: #### 5 7021-8 ####[facility] [id number] [place] [address] [place] Basophils/100 WBC (Bld) 0.4 % Normal [facility] Comment on above: Order Comment: Speci men Type: BLOOD SPECIMENOrdering Facility: [facility] Address: [address] [place] [address] Performed By: #### 5 7021-8 ####[facility] [id number] [place] [address] [place] Differential cell count method Nom (Bld) Auto Normal [facility] Comment on above: Order Comment: Speci men Type: BLOOD SPECIMENOrdering Facility: [facility] Address: [address] [place] [address] Performed By: #### 5 7021-8 ####[facility] [id number] [place] [address] [place] Eosinophils (Bld) [#/Vol] 0.08 10*3/uL Normal <0.46 [facility] Comment on above: Order Comment: Speci men Type: BLOOD SPECIMENOrdering Facility: [facility] Address: [address] [place] [address] Performed By: #### 5 7021-8 ####[facility] [id number] [place] [address] [place] Eosinophils/100 WBC (Bld) 1.6 % Normal [facility] Comment on above: Order Comment: Speci men Type: BLOOD SPECIMENOrdering Facility: [facility] Address: [address] [place] [address] Performed By: #### 5 7021-8 ####[facility] [id number] [place] [address] [place] Erythrocyte distribution width (RBC) [Ratio] 18.1 % High 11.5-15.0 [facility] Comment on above: Order Comment: Speci men Type: BLOOD SPECIMENOrdering Facility: [facility] Address: [address] [place] [address] Performed By: #### 5 7021-8 ####[facility] [id number] [place] [address] [place] Hematocrit (Bld) [Volume fraction] 34.3 % Low 36.0-46.0 [facility] Comment on above: Order Comment: Speci men Type: BLOOD SPECIMENOrdering Facility: [facility] Address: [address] [place] [address] Performed By: #### 5 7021-8 ####[facility] [id number] [place] [address] [place] Hemoglobin (Bld) [Mass/Vol] 10.5 g/dL Low 11.5-15.5 [facility] Comment on above: Order Comment: Speci men Type: BLOOD SPECIMENOrdering Facility: [facility] Address: [address] [place] [address] Performed By: #### 5 7021-8 ####[facility] MILLTOWNCLIA [id number] [place] [address] [place] Immature granulocytes (Bld) [#/Vol] 10*3/uL Normal <0.10 [facility] Comment on above: Order Comment: Speci men Type: BLOOD SPECIMENOrdering Facility: [facility] Address: [address] [place] [address] Performed By: #### 5 7021-8 ####[facility] MILLWNCLIA [id number] [place] [address] [place] Immature granulocytes/100 WBC (Bld) 0.2 % Normal [facility] Comment on above: Order Comment: Speci men Type: BLOOD SPECIMENOrdering Facility: [facility] Address: [address] [place] [address] Performed By: #### 5 7021-8 ####[facility]ERNCLIA [id number] [place] [address] [place] Lymphocytes (Bld) [#/Vol] 1.66 10*3/uL Normal 1.00-4.00 [facility] Comment on above: Order Comment: Speci men Type: BLOOD SPECIMENOrdering Facility: [facility] Address: [address] [place] [address] Performed By: #### 5 7021-8 ####[facility] MILLTOWNCLIA [id number] [place] [address] [place] Lymphocytes/100 WBC (Bld) 32.6 % Normal [facility] Comment on above: Order Comment: Speci men Type: BLOOD SPECIMENOrdering Facility: [facility] Address: [address] [place] [address] Performed By: #### 5 7021-8 ####[facility] MILLTOWNCLIA [id number] [place] [address] [place] MCH (RBC) [Entitic mass] 22.5 pg Low 26.0-34.0 [facility] Comment on above: Order Comment: Speci men Type: BLOOD SPECIMENOrdering Facility: [facility] Address: [address] [place] [address] Performed By: #### 5 7021-8 ####[facility] [id number] [place] [address] [place] MCHC (RBC) [Mass/Vol] 30.6 g/dL Normal 30.5-36.0 [facility] Comment on above: Order Comment: Speci men Type: BLOOD SPECIMENOrdering Facility: [facility] Address: [address] [place] [address] Performed By: #### 5 7021-8 ####[facility] [id number] [place] [address] [place] MCV (RBC) [Entitic vol] 73.4 fL Low 80.0-100.0 [facility] Comment on above: Order Comment: Speci men Type: BLOOD SPECIMENOrdering Facility: [facility] Address: [address] [place] [address] Performed By: #### 5 7021-8 ####[facility] [id number] [place] [address] [place] Monocytes (Bld) [#/Vol] 0.59 10*3/uL Normal <0.87 [facility] Comment on above: Order Comment: Speci men Type: BLOOD SPECIMENOrdering Facility: [facility] Address: [address] [place] [address] Performed By: #### 5 7021-8 ####[facility] [id number] [place] [address] [place] Monocytes/100 WBC (Bld) 11.6 % Normal [facility] Comment on above: Order Comment: Speci men Type: BLOOD SPECIMENOrdering Facility: [facility] Address: [address] [place] [address] Performed By: #### 5 7021-8 ####[facility]ERNCLIA [id number] [place] [address] [place] Neutrophils (Bld) [#/Vol] 2.73 10*3/uL Normal 1.45-7.50 [facility] Comment on above: Order Comment: Speci men Type: BLOOD SPECIMENOrdering Facility: [facility] Address: [address] [place] [address] Performed By: #### 5 7021-8 ####[facility] [id number] [place] [address] [place] Neutrophils/100 WBC (Bld) 53.6 % Normal [facility] Comment on above: Order Comment: Speci men Type: BLOOD SPECIMENOrdering Facility: [facility] Address: [address] [place] [address] Performed By: #### 5 7021-8 ####[facility] [id number] [place] [address] [place] Nucleated RBC (Bld) [#/Vol] 10*3/uL Normal <0.01 [facility] Comment on above: Order Comment: Speci men Type: BLOOD SPECIMENOrdering Facility: [facility] Address: [address] [place] [address] Performed By: #### 5 7021-8 ####[facility] [id number] [place] [address] [place] Nucleated RBC/100 WBC (Bld) [Ratio] 0.0 /100 WBC Normal [facility] Comment on above: Order Comment: Speci men Type: BLOOD SPECIMENOrdering Facility: [facility] Address: [address] [place] [address] Performed By: #### 5 7021-8 ####[facility] BLAYNEDonavanNCLIA [id number] [place] [address] [place] Platelet mean volume (Bld) [Entitic vol] 11.3 fL Normal 9.0-12.7 [facility] Comment on above: Order Comment: Speci men Type: BLOOD SPECIMENOrdering Facility: [facility] Address: [address] [place], [place] [address] Performed By: #### 5 7021-8 ####[facility]CLIA [id number] [place] [address] [place] Platelets (Bld) [#/Vol] 248 10*3/uL Normal 150-400 [facility] Comment on above: Order Comment: Speci men Type: BLOOD SPECIMENOrdering Facility: [facility] Address: [address] [place], [place] [address] Performed By: #### 5 7021-8 ####[facility]ERNCLIA [id number] [place] [address] [place] RBC (Bld) [#/Vol] 4.67 10*6/uL Normal 3.90-5.20 [facility] Comment on above: Order Comment: Speci men Type: BLOOD SPECIMENOrdering Facility: [facility] Address: [address] [place] [address] Performed By: #### 5 7021-8 ####[facility]ERNCLIA [id number] [place] [address] [place] WBC (Bld) [#/Vol] 5.09 10*3/uL Normal 3.70-11.00 [facility] Comment on above: Order Comment: Speci men Type: BLOOD SPECIMENOrdering Facility: [facility] Address: [address] [place], [place] [address] Performed By: #### 5 7021-8 ####[facility] JACKSONVILLEWNCLIA [id number] [place] [address] [place] CNOVon 01-24-2024 CNOV Office Visit (OBGYWM ) ----- FRANK WOODRUFF ([id number]) 1 F Date Time Provider Department 01/24/24 11:30 AM JAQUELIN BENAVIDEZ OBGYWM During your visit today, we recorded the following information about you: Blood pressure Weight Height Last Period 120/62 83.9 kg 1.685 m 01/17/24 Jaquelin Benavidez APRN.CNM 01/31/2024 5:14 PM Signed Service Delivery Manager offered: Patient declines. Hugo is a 18 year old who presents for an annual gynecologic exam with complaints, heavy bleeding. Paragard in place. First two days of cycle, heavier bleeding with clots first two days of cycle, had clot size of egg. Does notice some dizziness at times. Presents: alone Menses: cycles every 30 days and 7-10 days of flow. Bleeding is lasting longer than before. Spotting on and off throughout the month. Contraception: IUD paragard HPV vaccine: No Last pap smear: never Sexually active: Yes Pain with intercourse: No Postcoital bleeding: No OB History T0 L0 SAB0 IAB0 Ectopic0 Multiple0 Live Births0 Community Program Assistant History LMP: 01/17/2024, Having periods Age at Menarche: Age at First : Age at Menopause: Community Program Assistant History Comments: Sexual Activity: Yes; Male Contraception: Condom, I.U.D. PAST MEDICAL HISTORY No date: PMH - PAST MEDICAL HISTORY OF Comment: PFO and heart murmur 11/14/09: PMH - PAST MEDICAL HISTORY OF Comment: normal color vision No date: Syncopal episodes Comment: negative workup EEG, Cardio (other than PFO), suspect vasovagalPAST SURGICAL HISTORY 07/02/2019: ABLATE HEART DYSRHYTHM FOCUS 06/20/2008: PAST SURGICAL HISTORY OF Comment: tonsils and adenoids removed - Dr Barbour FAMILY HISTORY Problem Relation Age of Onset No Known Problems Mother No Known Problems Father No Known Problems Sister No Known Problems Sister No Known Problems Brother No Known Problems Brother No Known Problems Maternal Grandmother Hypertension Maternal Grandfather No Known Problems Paternal Grandmother No Known Problems Paternal Grandfather Heart Other mguncle - of heart problem age 19 years SOCIAL HISTORY Social History Tobacco Use Smoking status: Never Smokeless tobacco: Never Vaping Use Vaping status: Never Used Substance Use Topics Alcohol use: Never Drug use: Never REVIEW OF SYSTEMS Abdomen: No bloating, early satiety, indigestion, or increased flatulence. No abdominal pain, nausea, vomiting, diarrhea, or constipation. Bladder: No dysuria, gross hematuria, urinary frequency, urinary urgency, or incontinence. Breast: No breast lumps, nipple d/c, overlying skin changes, redness or skin retraction. Allergies and current medication updated:Yes EXAM: BP 120/62 Ht 5' 6.339" (1.69m) Wt 185 lb (83.9kg) LMP 01/17/2024 BMI 29.56 kg/(m2). GENERAL: pleasant, in no apparent distress HEENT: Normocephalic, atraumatic, mucus membranes moist, and no lesions NECK: Supple, full range of motion, no adenopathy, and thyroid normal DERMATOLOGY: Normal, without lesions, non-icteric, and non-hirsute BREAST: soft, non-tender, symmetric, no dominant mass, normal nipple-areolar complex, no lymphadenopathy, and no nipple discharge CHEST: Clear to auscultation, Normal inspiratory effort, Regular rate and rhythm, and No murmurs, clicks, rubs or gallops ABDOMEN: soft, non-tender, and no masses PELVIC: external genitalia normal, normal Bartholin's glands, urethra, Sachse's glands, no vulvar lesions, no cervical lesions, good vaginal support, physiologic discharge present, normal appearing perineal body and perianal region, IUD strings visible BIMANUAL: uterus normal size, shape and consistency, no adnexal masses, and non-tender NEURO: alert and oriented x3,exam grossly non-focal EXTREMITIES: normal ASSESSMENT/PLAN: 1. Encounter for gynecological examination (general) (routine) without abnormal findings - ICD9: V72.31, ICD10: Z01.419 (primary diagnosis) - Completed pelvic and breast exam - Encouraged monthly BSE - Follow up for annual exam in one year. 2. Abnormal uterine bleeding (AUB) - ICD9: 626.9, ICD10: N93.9 - COMPLETE BLOOD COUNT AND DIFFERENTIAL - IRON AND TIBC - FERRITIN - THYROID STIMULATING HORMONE - PROLACTIN - GONORRHEA/CHLAMYDIA NAAT - MARGARET/TRICHOMONAS NAAT - BACTERIAL VAGINOSIS NAAT - PELVIC US WHI - TESTOSTERONE, FREE AND TOTAL 3. IUD check up - ICD9: V25.42, ICD10: Z30.431 4. Screen for STD (sexually transmitted disease) - ICD9: V74.5, ICD10: Z11.3 - GONORRHEA/CHLAMYDIA NAAT - MARGARET/TRICHOMONAS NAAT 1) Health maintenance: Pap starting at the age of 21. Safe sex practices reviewed. Nutrition, exercise, and routine health maintenance exams reviewed. 2) Contraception: IUD. Contraceptive options reviewed and information provided. 3) STD screening: Accepted STD check for Gonorrhea and Chlamydia. 4) Follow up one year or sooner a (more content not included)... Normal [facility] Ferritin SerPl-mCncon 2023 Ferritin [Mass/Vol] 9.1 ng/mL Low 14.7-205.1 [facility] Comment on above: Order Comment: Speci men Type: BLOOD SPECIMENOrdering Facility: [facility] Address: [address] [place] [address] Performed By: #### 2 276-4, 0312-3, 97082-9, 3016-3 ####[facility] LABCLIA [id number] [facility] [id number], [place] [address] [place] Iron and Iron binding capaci ty panelon 01-24-2024 Iron [Mass/Vol] 18 ug/dL Low 41-186 [facility] Comment on above: Order Comment: Speci men Type: BLOOD SPECIMENOrdering Facility: [facility] Address: [address] [place] [address] Performed By: #### 2 276-4, 2842-3, 74858-5, 3016-3 ####[facility] LABCLIA [id number] [place] [address] [place] Iron binding capacity [Mass/Vol] 448 ug/dL High 232-386 [facility] Comment on above: Order Comment: Speci men Type: BLOOD SPECIMENOrdering Facility: [facility] Address: [address] [place] [address] Performed By: #### 2 276-4, 2842-3, 25320-6, 6-3 ####[facility] LABIA [id number] [place] [address] [place] Iron/TIBC [Molar ratio] 4.0 % Low 15.0-57.0 [facility] Comment on above: Order Comment: Speci men Type: BLOOD SPECIMENOrdering Facility: [facility] Address: [address] [place] [address] Performed By: #### 2 276-4, 2842-3, 65126-3, 3015-3 ####[facility] LABIA [id number] [place] [address] [place] Prolactin SerPl-mCncon 01-23 Prolactin [Mass/Vol] 12.6 ng/mL Normal 4.5-26.8 [facility] Comment on above: Order Comment: Speci men Type: BLOOD SPECIMENOrdering Facility: [facility] Address: [address] [place] [address] Result Comment: Prol actin test is performed using the [employer] Electrochemiluminescence Immunoassay method. Results obtained with different methods or kits cannot be used interchangeably. Performed By: #### 2 276-4, 2842-3, 30711-2, 6-3 ####[facility] LABCLIA [id number] [place] [id number] [place] TESTOSTERONE, FREE AND TOTAL , BY EQUILIBRIUM ULTRAFILTRATION MASS SPECTROMETRYon 01-24-2024 TESTOSTERONE, FREE, S 0.33 ng/dL Normal <0.13-1.08 [facility] Comment on above: Order Comment: Acosta marisabel Type: BLOOD SPECIMENOrdering Facility: [facility] Address: [address] [place] [address] Result Comment: ADDITIONAL INFORMATION This test was developed and its performance characteristics determined by [facility] in a manner consistent with CLIA requirements. This test has not been cleared or approved by the U.S. Food and Drug Administration. Performed By: #### T FTEST ####[facility] REFERENCE LABCLIA [id number] [place] [address] TESTOSTERONE, TOTAL, S 21 ng/dL Normal 8-60 [facility] Comment on above: Order Comment: Acosta marisabel Type: BLOOD SPECIMENOrdering Facility: [facility] Address: [address] [place] [address] Result Comment: ADDITIONAL INFORMATION Testing performed by Liquid Chromatography-Tandem Mass Spectrometry (LC-MS/MS). This test was developed and its performance characteristics determined by [facility] in a manner consistent with CLIA requirements. This test has not been cleared or approved by the U.S. Food and Drug Administration. Test Performed by: [facility] [place] [address] Mud Analysis Supervisor: Jose D Lei Ph.D.; CLIA# [id number] Performed By: #### T FTEST ####[facility] RE[facility]ENCE LABCLIA [id number] [place] [address] [facility]-2024 TSH Qn 1.200 m[IU]/L Normal 0.510-4.300 [facility] Comment on above: Order Comment: Donovanmiesha petit Type: BLOOD SPECIMENOrdering Facility: [facility] Address: [address] [place] [address] Result Comment: If t he patient is , TSH reference range varies by gestational period: First Trimester (weeks 9-12): 0.180-2.990 mIU/L Second Trimester: 0.110-3.980 mIU/L Third Trimester: 0.480-4.710 mIU/L David Pepper et al. A Practical Approach for the Verifications and Determination of Site- and Trimester-Specific Reference Intervals for Thyroid Function tests in . Thyroid, 2019:29:3:412-420. Evan E, et al. 2017 Guidelines of the [place] Thy[employer] for the Diagnosis and Management of Thyroid Disease during and the . Thyroid, 2017:27:3:315-389. Performed By: #### 2 276-4, 2842-3, 73853-8, 3016-3 ####[facility] LABCLIA [id number] [place] [address] [place] US BREAST LEFT LIMITEDon BREAST LEFT LIMITED ORIGINAL FROM: [place] [address] PROCEDURE FOR: FRANK WOODRUFF [address] [place] [address] Home: PID#: [id number] Exam#: [id number] : 2005 Age: 16 TO: JAQUELINBEATRIZ BENAVIDEZ APRN [facility] [address] [place] [address] EXAMINATION: ULTRASOUND OF THE LEFT BREAST 10/25/2022 10:39 am TECHNIQUE: Color flow and real-time targeted ultrasound of the all 4 quadrants and left axilla were performed. COMPARISON: None. HISTORY: ORDERING SYSTEM PROVIDED HISTORY: Reason for Exam: BREAST PAIN AND FIBROCYSTIC BREAST DISEASE OF LT BREAST FINDINGS: There are no significant sonographic findings to correlate with the patient's pain. IMPRESSION: There are no significant sonographic findings to correlate with the patient's pain. Clinical follow up is recommended. BIRADS: MAMMOGRAM BI-RADS: 1: Negative RECALL: none RECALL TYPE: mammo LETTER SENT: Normal BI-RADS 1 and 2 Interpreted by: Kristyn Pierre MD Preliminary Report By: Kristyn Pierre MD Electronically signed By Kristyn Pierre MD Dictated Date: 10/25/2022 5:19:08 PM Prelim Date: 10/25/2022 5:20:07 PM Sign Date: 10/25/2022 5:20:07 PM Ordering Provider: JAQUELIN BENAVIDEZ CLINICAL: FOCAL PAIN LEFT BREAST. Lawn Mower: NADEEN COLIN RUST letter sent: Normal BI-RADS 1 and 2 Ultrasound BI-RADS: 1 Negative Normal [facility] ([place]) Progress Noteon 06-26-2022 Residential Youth Counselor Authentication Interface Message Text HE[facility] CENTER NOTE - FOLLOW-UP OUTPATIENT Frank Woodruff is 16 y.o. female seen on 06/26/2022 for follow-up of palpitations. Last seen 04/30/2016 CARDIAC DIAGNOSES: Palpitations NONCARDIAC DIAGNOSES: Syncope PRIOR CARDIAC PROCEDURES: 07/02/2019: ablation, AVNRT, cryo 05/02/2022: RF ablation, intra-atrial reentrant tachycardia, lateral tricuspid annulus INTERIM HISTORY: Frank was originally seen for syncope. Her workup suggested vasovagal. She also had a history of palpitations. She was able to record SVT on her Apple watch. She underwent cryoablation in June 2019. After her procedure she continued to have palpitations. Her recordings from her watch showed Sustained SVT. She returned to the EP lab in April 2022. 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 Since her most recent procedure, Frank had one episode of palpitations while sitting in class. It lasted about 5 minutes. She recorded PACs on her Apple watch. She also had an episode of chest pain and light headedness without a racing heart. She was standing at work when it happened. She had to sit down to avoid syncope. The pain lasted < 5 minutes. It was midline, upper sternal and lower neck. It did not radiate. Her dizziness lasted about 20 minutes. ROS negative for fever, chills, fatigue, blurry vision, double vision, cough, wheeze, rash, sore throat, congestion, joint pain or swelling, muscle pain, nausea, vomiting, abdominal pain, depression or substance abuse. IMAGING STUDIES SINCE LAST VISIT: MEDICATIONS: Current Outpatient Medications Medication Sig Dispense Refill amoxicillin (AMOXIL) 500 MG capsule Take 4 Capsules (2,000 mg) by mouth once as needed for Other (1 hour prior to dental cleaning or procedure) for up to 1 dose 4 Capsule 3 Acetaminophen 160 MG CHEW Take 650 mg by mouth every 4 hours as needed for Pain Rhnjwyy-Hxvavqdpspxny-Oka feine (EXCEDRIN MIGRAINE PO) Take by mouth Loratadine 10 MG CAPS Take by mouth aspirin 81 MG chewable tablet Take 1 Tablet (81 mg) by mouth daily for 7 days Start tonight at 8 PM Adapalene-Benzoyl Peroxide (EPIDUO FORTE) 0.3-2.5 % GEL Apply to affected area (Patient not taking: Reported on 06/26/2022) No current facility-administered medications for this visit. ALLERGIES: Bactrim [sulfamethoxazole-trimeth oprim] and Sulfa antibiotics FAMILY HISTORY UPDATE: No change SOCIAL HISTORY UPDATE: Smoking: No School Grade: graduated, planning to study child psychology School performance: Good Coached Sports: None PHYSICAL EXAM: CARDIAC EXAM: Vitals:BP 113/59 (BP Site: Right Arm, Patient Position: Sitting, BP Cuff Size: Adult) Pulse 76 Resp 18 Ht 167 cm Wt 74.3 kg BMI 26.64 kg/m Wt Readings from Last 3 Encounters: 06/26/22 74.3 kg (91 %, Z= 1.31)* 05/02/22 73.2 kg (90 %, Z= 1.27)* 03/05/22 73.8 kg (91 %, Z= 1.31)* * Growth percentiles are based on CDC (Girls, 2-20 Years) data. Ht Readings from Last 3 Encounters: 06/26/22 167 cm (72 %, Z= 0.59)* 05/02/22 168 cm (77 %, Z= 0.74)* 03/05/22 166.8 cm (71 %, Z= 0.56)* * Growth percentiles are based on CDC (Girls, 2-20 Years) data. Body mass index is 26.64 kg/m . 87 %ile (Z= 1.15) based on CDC (Girls, 2-20 Years) BMI-for-age based on BMI available as of 06/26/2022. 91 %ile (Z= 1.31) based on CDC (Girls, 2-20 Years) jhjnoc-paj-jlq data using vitals from 06/26/2022. 72 %ile (Z= 0.59) based on [facility] (Girls, 2-20 Years) Ugdgetm-fcn-haj data based on Stature recorded on 06/26/2022. CARDIAC EXAM: No cyanosis, clubbing or edema. Warm extremities; brisk capillary refill. No chest wall deformity; no chest wall tenderness. Normal left ventricular impulse; precordium not hyperdynamic; no thrill. No hepatomegaly or splenomegaly; no JVD. Upper and lower extremity pulses equal. No retractions, rales, wheezing, coughing, grunting; normal breath sounds bilaterally. Normal S1; normal S2, normal splitting; no S3 or S4; no clicks. No murmur. GENERAL EXAM: Well developed. Alert; no distress. Moving all extremities. Normal tone. Moist mucous membranes. No rash. No petechia. Neck supple. Normal cry or speech. Abdomen soft and nontender. No masses. 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 She states that she feels much better since her recent procedure. I am having her continue to record any symptoms. PLAN: Cardiac medication changes: No Bacterial Endocarditis prophylaxis: No Activity Restrictions: No Other: Follow-up Visit: 12 months Normal [facility] Echo Limited/F/U/w/o CHDon 1 07-03-2021 [facility] [place] [address] [email or web address] Transthoracic Echocardiogram Report M-mode, limited 2D, limited spectral Doppler, and color Doppler PATIENT: Frank Woodruff STUDY DATE/TIME: May 02 2022 1:30PM HEIGHT: 168cm : 2005 WEIGHT: 73.2kg AGE: 16yr BSA/BMI: 1.83m^2 / 25.9kg/m^2 GENDER: F BP: 115 / 77 LOCATION: [facility] REFERRING PHYSICIAN: Akila Christopher ORDERING PROVIDER: Akila Christopher READING PHYSICIAN: Ricci Davis MD [facility] COMMANDING OFFICER: FARHAT Ulloa SUMMARY: 1. Normal echocardiogram. 2. Status post ablation. 3. Good systolic function. 4. No effusion. REASON FOR EXAM: Status post ablation. STUDY AND PROCEDURE DATA: Procedure Description: Limited/F/U/w/o CHD ([id number]) . Study status: Routine. Location: PACU. Patient status: Inpatient. Blood pressure: 115/77 Height percentile: 77.3. Weight percentile: 90.3. FINDINGS: ANATOMIC RELATIONSHIPS - Normal atrial situs. Ventricular d-loop. Normally related great vessels. VEINS AND ATRIA Atrial septum - No evidence for a significant atrial septal defect. Left atrium - The atrium is normal in size. Right atrium - The atrium is normal in size. Systemic veins - Superior and inferior caval veins return to the right atrium. No persistent left superior caval vein is seen, there is no coronary sinus dilation. Pulmonary veins: At least one right and one left pulmonary vein seen draining to the left atrium. Seen previously. A-V CANAL Tricuspid valve - There is no evidence for stenosis. There is trivial regurgitation. Mitral valve - No echocardiographic evidence for prolapse. - There is no evidence for stenosis. There is no significant regurgitation. VENTRICLES Right ventricle - The cavity size is normal. Wall thickness is normal. Systolic function is qualitatively normal. Ventricular septum - There is no evidence of a ventricular septal defect. Left ventricle - The cavity size is normal. Wall thickness is normal. Systolic function is quantitatively normal. The endocardial fractional shortening (MM) is 31%. The ejection fraction (MM, Teichholz) is 59%. CONOTRUNCUS Aortic valve - The valve is trileaflet. - There is no stenosis. There is no regurgitation. Pulmonic valve - There is no stenosis. There is trivial regurgitation. Coronaries - The left main has a normal origin from the left sinus of Valsalva, by history. The right coronary arises normally from the right sinus of Valsalva., by history. No aneurysms or dilation is seen, by history. GREAT ARTERIES Aorta - The arch is left-sided, by history. Normal aortic arch branching pattern, by history. - The aorta is without evidence of coarctation by normal abdominal aorta Doppler pattern. Pulmonary arteries - The proximal branch pulmonary arteries are normal. - Main pulmonary artery: The artery is of normal size. Systemic-pulmonary shunts - No evidence of a patent ductus arteriosus, by history. PERICARDIUM - There is no significant pericardial effusion. *Measurements* Left ventricle Value 07/03/2019 Ref Z AUNDREA, MM (L) 4.22 cm 4.64 4.32 -2.2 - 5.78 ESD, MM (N) 2.92 cm 2.99 2.57 -1.0 - 3.97 AUNDREA/bsa, MM 2.3 cm/m^2 2.6 ---- ---- ESD/bsa, MM 1.6 cm/m^2 1.7 ---- ---- FS, MM (N) 31 % 36 29 - -1.2 43 Mid-wall (N) 13 % 18 12 - -1.6 FS, MM 23 PW, ED MM (N) 1.01 cm 0.77 0.67 0.8 - 1.16 PW, ES MM (N) 1.55 cm 1.39 1.15 0.2 - 1.86 PW 53 % 79 ---- ---- thickening, (more content not included)... PDF RESULT Ricci Davis MD - 05/02/2022 [facility] [place] [address] [email or web address] Transthoracic Echocardiogram Report M-mode, limited 2D, limited spectral Doppler, and color Doppler PATIENT: Frank Woodruff STUDY DATE/TIME: May 02 2022 1:30PM HEIGHT: 168cm : 2005 WEIGHT: 73.2kg AGE: 16yr BSA/BMI: 1.83m^2 / 25.9kg/m^2 GENDER: F BP: 115 / 77 LOCATION: [facility] REFERRING PHYSICIAN: Akila Christopher ORDERING PROVIDER: Akila Christopher READING PHYSICIAN: Ricci Davis MD [facility] COMMANDING OFFICER: AFRHAT lUloa SUMMARY: 1. Normal echocardiogram. 2. Status post ablation. 3. Good systolic function. 4. No effusion. REASON FOR EXAM: Status post ablation. STUDY AND PROCEDURE DATA: Procedure Description: Limited/F/U/w/o CHD ([id number]) . Study status: Routine. Location: PACU. Patient status: Inpatient. Blood pressure: 115/77 Height percentile: 77.3. Weight percentile: 90.3. FINDINGS: ANATOMIC RELATIONSHIPS - Normal atrial situs. Ventricular d-loop. Normally related great vessels. VEINS AND ATRIA Atrial septum - No evidence for a significant atrial septal defect. Left atrium - The atrium is normal in size. Right atrium - The atrium is normal in size. Systemic veins - Superior and inferior caval veins return to the right atrium. No persistent left superior caval vein is seen, there is no coronary sinus dilation. Pulmonary veins: At least one right and one left pulmonary vein seen draining to the left atrium. Seen previously. A-V CANAL Tricuspid valve - There is no evidence for stenosis. There is trivial regurgitation. Mitral valve - No echocardiographic evidence for prolapse. - There is no evidence for stenosis. There is no significant regurgitation. VENTRICLES Right ventricle - The cavity size is normal. Wall thickness is normal. Systolic function is qualitatively normal. Ventricular septum - There is no evidence of a ventricular septal defect. Left ventricle - The cavity size is normal. Wall thickness is normal. Systolic function is quantitatively normal. The endocardial fractional shortening (MM) is 31%. The ejection fraction (MM, Teichholz) is 59%. CONOTRUNCUS Aortic valve - The valve is trileaflet. - There is no stenosis. There is no regurgitation. Pulmonic valve - There is no stenosis. There is trivial regurgitation. Coronaries - The left main has a normal origin from the left sinus of Valsalva, by history. The right coronary arises normally from the right sinus of Valsalva., by history. No aneurysms or dilation is seen, by history. GREAT ARTERIES Aorta - The arch is left-sided, by history. Normal aortic arch branching pattern, by history. - The aorta is without evidence of coarctation by normal abdominal aorta Doppler pattern. Pulmonary arteries - The proximal branch pulmonary arteries are normal. - Main pulmonary artery: The artery is of normal size. Systemic-pulmonary shunts - No evidence of a patent ductus arteriosus, by history. PERICARDIUM - There is no significant pericardial effusion. *Measurements* Left ventricle Value 07/03/2019 Ref Z AUNDREA, MM (L) 4.22 cm 4.64 4.32 -2.2 - 5.78 ESD, MM (N) 2.92 cm 2.99 2.57 -1.0 - 3.97 AUNDREA/bsa, MM 2.3 cm/m^2 2.6 ---- ---- ESD/bsa, MM 1.6 cm/m^2 1.7 ---- ---- FS, MM (N) 31 % 36 29 - -1.2 43 Mid-wall (N) 13 % 18 12 - -1.6 FS, MM 23 PW, ED MM (N) 1.01 cm 0.77 0.67 0.8 - 1.16 PW, ES MM (N) 1.55 cm 1.39 1.15 0.2 - 1.86 PW 53 % 79 ---- ---- thickening, MM PW/ID (N) 0.24 0.17 0.13 1.9 ratio, ED - MM 0.24 IVS/PW (N) 1.15 1.07 0.71 0.4 ratio, ED - MM 1.42 Rel 0.48 0.33 ---- ---- thickness, ED MM EF, MM 59 % ---- ---- Teich. Mass, MM (N) 155 g 120 113 -0.5 - 263 Mass/bsa, 85 g/m^2 67 ---- ---- MM Mass/ht, MM 93 g/m 72 ---- ---- Mass/ht^2.7 38 g/m^2.7 30 ---- ---- , MM Ventricular Value 07/03/2019 Ref Z septum IVS, ED MM (N) 1.16 cm 0.83 0.68 1.3 - 1.26 IVS, ES MM (N) 1.40 cm 1.07 0.97 0.4 - 1.69 IVS 21 % 29 ---- ---- thickening, MM Legend: (H) and (L) dave values outside specified reference range. REJI ICD Codes: (I47.1) Supraventricular tachycardia. Interpreted and electronically signed by Ricci Davis MD 05/02 (more content not included)... [facility] Radiology Study observation (narrative) [facility] POCT urine HCGOrdered By: Me efraín Singletary on 05-02-2022 Clear Background *Present [facility] Control Line *Present [facility] HCG ( test) Ql (U) Negative Negative [facility] Interpretation and review of laboratory results Normal [facility] LOT # [id number] [facility] Progress Noteon 05-02-2022 [facility] [employer] Authentication Interface Message Text Frank Woodruff underwent an electrophysiologic study and radiofrequency ablation of SVT at [facility] on 05/02/2022. 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 She underwent successful RF ablation. Three-dimensional mapping was used, and fluoroscopy was not needed. She tolerated the procedure well, without complications. I recommend light activity for 3 days, and then no restrictions, 1 baby aspirin daily for 1 week, no dental work for 6 weeks, and SBE prophylaxis for 1 year. She is scheduled for follow up in 2 months. Normal [facility] MRI BRAIN WITHOUT CONTRASTon 03-06-2022 MRI BRAIN WITHOUT CONTRAST CLINICAL HISTORY: 16 year old with history of syncope with recent episodes of focal findings with syncopal episodes (eye deviation and head deviation to the left) TECHNIQUE: MRI of the brain was performed at 1. 5 Thuy without intravenous contrast. COMPARISON: None FINDINGS: CEREBRAL PARENCHYMA: There is no focal or diffuse parenchymal abnormality or mass lesion. No structural malformation or migrational anomaly is identified. The hippocampi appear normal. VENTRICLES: Normal configuration. EXTRA AXIAL FLUID: No extra axial fluid collection or hemorrhage. POSTERIOR FOSSA and BRAINSTEM: Normal appearance. PARANASAL SINUSES: Mucosal thickening is seen in the ethmoid sinuses. ORBITS: Normal. IMPRESSION: Unremarkable appearance of the brain This report has been created using voice recognition software Signed by: Dr. Chandan Pantoja at 03/06/2022 09:53 Normal [facility] Vital Signs Date Time Vital Sign Value Performing Clinician Facility 08-25-2024 08:02-0400 Body height 168 cm Jeannie Soliz APRN.SENIOR ASSET MANAGER Work Phone: [facility] 08-25-2024 08:02-0400 Body mass index (BMI) [Ratio] 29.28 kg/m2 Jeannie Soliz APRN.SENIOR ASSET MANAGER Work Phone: [facility] 08-25-2024 08:02-0400 Body weight 82.64 kg Jeannie Soliz APRN.SENIOR ASSET MANAGER Work Phone: [facility] 08-25-2024 08:02-0400 Diastolic blood pressure 65 mm[Hg] Jeannie Soliz APRN.SENIOR ASSET MANAGER Work Phone: [facility] Comment on above: bp machine reading 08-25-2024 08:02-0400 Heart rate 75 /min Jeannie Soliz APRN.SENIOR ASSET MANAGER Work Phone: [facility] 08-25-2024 08:02-0400 SaO2% (BldA) [Mass fraction] 100 % Jeannie Martínez PREVENTIVE MEDICINE PHYSICIAN.SENIOR ASSET MANAGER Work Phone: [facility] 08-25-2024 08:02-0400 Systolic blood pressure 102 mm[Hg] Jeannie Soliz PREVENTIVE MEDICINE PHYSICIAN.SENIOR ASSET MANAGER Work Phone: [facility] Comment on above: bp machine reading 04-24-2024 09:32-0500 Body mass index (BMI) [Ratio] 29.08 kg/m2 Jaquelin Benavidez PREVENTIVE MEDICINE PHYSICIAN.CNM Work Phone: [facility] 04-24-2024 09:32-0500 Body weight 82.56 kg Jaquelin Benavidez PREVENTIVE MEDICINE PHYSICIAN.CNM Work Phone: [facility] 04-24-2024 09:32-0500 Diastolic blood pressure 70 mm[Hg] Jaquelin Benavidez PREVENTIVE MEDICINE PHYSICIAN.CNM Work Phone: [facility] 04-24-2024 09:32-0500 Systolic blood pressure 110 mm[Hg] Jaquelin Benavidez PREVENTIVE MEDICINE PHYSICIAN.CNM Work Phone: [facility] 02-28-2024 09:33-0400 Body mass index (BMI) [Ratio] 28.6 kg/m2 Jaquelin Benavidez PREVENTIVE MEDICINE PHYSICIAN.CNM Work Phone: [facility] 02-28-2024 09:33-0400 Body weight 81.19 kg Jaquelin Benavidez PREVENTIVE MEDICINE PHYSICIAN.CNM Work Phone: [facility] 02-28-2024 09:33-0400 Diastolic blood pressure 62 mm[Hg] Jaquelin Benavidez PREVENTIVE MEDICINE PHYSICIAN.CNM Work Phone: [facility] 02-28-2024 09:33-0400 Systolic blood pressure 110 mm[Hg] Jaquelin Benavidez PREVENTIVE MEDICINE PHYSICIAN.CNM Work Phone: [facility] 01-24-2024 11:28-0400 Body height 168.5 cm Jaquelin Benavidez PREVENTIVE MEDICINE PHYSICIAN.CNM Work Phone: [facility] 01-24-2024 11:28-0400 Body mass index (BMI) [Ratio] 29.56 kg/m2 Jaquelin Benavidez PREVENTIVE MEDICINE PHYSICIAN.CNM Work Phone: [facility] 01-24-2024 11:28-0400 Body weight 83.92 kg Jaquelin Benavidez APRN.CNM Work Phone: [facility] 01-24-2024 11:28-0400 Diastolic blood pressure 62 mm[Hg] Jaquelin Benavidez PREVENTIVE MEDICINE PHYSICIAN.CNM Work Phone: [facility] 01-24-2024 11:28-0400 Systolic blood pressure 120 mm[Hg] Jaquelin Benavidez PREVENTIVE MEDICINE PHYSICIAN.CNM Work Phone: [facility] 09-14-2022 10:06-0400 Body weight 76.2 kg Jaquelin Benavidez APRN.CNM Work Phone: [facility] 09-14-2022 10:06-0400 Diastolic blood pressure 68 mm[Hg] Jaquelin Benavidez PREVENTIVE MEDICINE PHYSICIAN.CNM Work Phone: [facility] 09-14-2022 10:06-0400 Systolic blood pressure 102 mm[Hg] Jaquelin Benavidez APRN.CNM Work Phone: [facility] 07-03-2022 11:38-0500 Body height 167.2 cm Cecy William PA-C Work Phone: [facility] 07-03-2022 11:38-0500 Body mass index (BMI) [Percentile] Per age and sex 86.2 % Cecy William PA-C Work Phone: [facility] 07-03-2022 11:38-0500 Body temperature 97.7 [degF] Cecy William PA-C Work Phone: [facility] 07-03-2022 11:38-0500 Body weight 73.44 kg Cecy William PA-C Work Phone: [facility] 07-03-2022 11:38-0500 Diastolic blood pressure 80 mm[Hg] Cecy William PA-C Work Phone: [facility] 07-03-2022 11:38-0500 Heart rate 84 /min Cecy William PA-C Work Phone: [facility] 07-03-2022 11:38-0500 Respiratory rate 16 /min Cecy William PA-C Work Phone: [facility] 07-03-2022 11:38-0500 Systolic blood pressure 130 mm[Hg] Cecy William PA-C Work Phone: [facility] 05-02-2022 16:30-0500 Body temperature 98.1 [degF] Ricci Davis MD Work Phone: [facility] 05-02-2022 16:30-0500 Diastolic blood pressure 62 mm[Hg] Ricci Davis MD Work Phone: [facility] 05-02-2022 16:30-0500 Heart rate 99 /min Ricci Davis MD Work Phone: [facility] 05-02-2022 16:30-0500 Respiratory rate 16 /min Ricci Davis MD Work Phone: [facility] 05-02-2022 16:30-0500 SaO2% (BldA) [Mass fraction] 98 % Ricci Davis MD Work Phone: [facility] 05-02-2022 16:30-0500 Systolic blood pressure 101 mm[Hg] Ricci Davis MD Work Phone: [facility] 05-02-2022 06:55-0500 Body height 168 cm Ricci Davis MD Work Phone: [facility] 05-02-2022 06:55-0500 Body mass index (BMI) [Percentile] Per age and sex 85.25 % Ricci Davis MD Work Phone: [facility] 05-02-2022 06:55-0500 Body mass index (BMI) [Ratio] 25.94 kg/m2 Ricci Davis MD Work Phone: [facility] 05-02-2022 06:55-0500 Body weight 73.2 kg Ricci Davis MD Work Phone: [facility] Encounters Encounter Date Encounter Type Care Provider Facility Start: 11-23-2024 End: 11-23-[address] Ricci Carreon MD Work Phone: [facility] Start: 11-23-2024 End: 11-23-2024 Patient encounter procedure Zaynab Welch PA-C [facility] Work Phone: Start: 11-23-2024 End: 11-23-2024 ambulatory Zaynab Irwin PA Facility:[facility] Start: 11-04-2024 End: 11-04-[address] Ricci Carreon MD Work Phone: [facility] Work Phone: Start: 11-04-2024 End: 11-04-2024 Patient encounter procedure Zaynab Welch PA-C [facility] Work Phone: Start: 11-04-2024 End: 11-04-2024 ambulatory Zaynab PA Facility:[facility] Start: 08-27-2024 End: 08-27-2024 ambulatory Jeannie Soliz APRN.SENIOR ASSET MANAGER Work Phone: [facility] Comment on above: Question about previ ous blood work Start: 08-26-2024 End: 08-27-2024 Follow-up encounter Jeannie Soliz APRN.SENIOR ASSET MANAGER Work Phone: [facility] Start: 08-25-2024 Encounter for genera l adult medical examination without abnormal findings JAQUELIN BENAVIDEZ [facility] Start: 08-25-2024 End: 08-25-2024 ambulatory JEANNIE SOLIZ Facility:[facility] Start: 08-25-2024 End: 08-25-2024 Office outpatient visit 25 minutes Jeannie Soliz APRN.SENIOR ASSET MANAGER Work Phone: [facility] Comment on above: Well adult exam (Mirna napoles Dx); Lymphadenopathy, generalized; Iron deficiency anemia due to chronic blood loss; Encounter for screening examination for other mental health and behavioral disorders; Screening for depression Start: 08-25-2024 End: 08-25-2024 Patient encounter status Jeannie Ruthutzman SENIOR ASSET MANAGER Work Phone: [facility] Work Phone: Start: 07-27-2024 End: 07-27-2024 ambulatory COLIN LEE MD Facility:[facility] Start: 05-05-2024 End: 05-05-2024 Telephone encounter Jeannie Martínez PERRINSENIOR ASSET MANAGER Work Phone: [facility] Comment on above: Establish Care Start: 05-04-2024 End: 05-04-2024 Telephone encounter Cesar Geegildardo PERRINSENIOR ASSET MANAGER Work Phone: OB/Gynecology Comment on above: Results Start: 05-01-2024 End: 05-01-2024 ambulatory JAQUELIN BENAVIDEZ Facility:[facility] Start: 04-29-2024 End: 04-29-2024 ambulatory Ellis Pal RNstaff air defense officer [facility] Comment on above: Blood Management Start: 04-24-2024 End: 04-24-2024 ambulatory JAQUELIN BENAVIDEZ Facility:[facility] Start: 04-24-2024 End: 04-24-2024 Patient encounter procedure Jaquelin Benavidez APRN.CNM Work Phone: OB/Gynecology Comment on above: Surveillance of prev iously prescribed intrauterine contraceptive device (Primary Dx); Acute blood loss anemia Start: 02-28-2024 End: 02-28-2024 ambulatory JAQUELIN BENAVIDEZ Facility:[facility] Start: 02-28-2024 End: 02-28-2024 Patient encounter procedure Jaquelin Benavidez APRN.CNM Work Phone: OB/Gynecology Comment on above: Encounter for IUD re moval (Primary Dx); Encounter for IUD insertion Start: 02-06-2024 End: 02-10-2024 Telephone encounter Jaquelin Benavidez APRN.CNM Work Phone: OB/Gynecology Comment on above: Appointment Start: 02-04-2024 End: 02-06-2024 Telephone encounter Jaquelin Benavidez APRN.CNM Work Phone: OB/Gynecology Comment on above: Results Start: 01-31-2024 End: 01-31-2024 ambulatory JAQUELIN BENAVIDEZ OB/[facility] Start: 01-31-2024 End: 01-31-2024 Patient encounter procedure [employer] [facility] Clinical Lab Assistant [facility]/Gy[facility]cology Start: 01-27-2024 End: 01-28-2024 Telephone encounter Jaquelin Benavidez APRN.CNM Work Phone: OB/Gynecology Comment on above: Results Start: 01-24-2024 End: 01-24-2024 ambulatory JAQUELIN BENAVIDEZ Facility:[facility] Start: 01-24-2024 End: 01-24-2024 Patient encounter procedure Jaquelin Benavidez APRN.CNM Work Phone: OB/Gynecology Comment on above: Encounter for gyneco logical examination (general) (routine) without abnormal findings (Primary Dx); Abnormal uterine bleeding (AUB); IUD check up; Screen for STD (sexually transmitted disease) Start: 01-24-2024 End: 01-24-2024 Patient encounter status Jaquelin Benavidez APRN.CNM Work Phone: [facility] Start: 02-05-2023 End: 02-05-2023 ambulatory COLIN LEE MD Facility:[facility] Start: 10-25-2022 End: 10-26-2022 ambulatory JAQUELIN BENAVIDEZ APRN-CARMINA Facility:[facility] Start: 09-14-2022 Telephone encounter Jaquelin العراقي APRN.CNM Work Phone: OB/Gynecology Comment on above: Future Appointment ( /) Start: 09-14-2022 End: 09-14-2022 Patient encounter procedure Jaquelin Benavidez APRN.CNM Work Phone: OB/Gynecology Comment on above: Solitary cyst of lef t breast (Primary Dx); Fibrocystic disease of left breast; Breast pain Start: 07-03-2022 End: 07-03-2022 Patient encounter procedure Cecy William PA-C Work Phone: [facility] Comment on above: Encounter for wellne ss examination in adult (Primary Dx) Start: 07-03-2022 End: 07-03-2022 Patient encounter status Cecy William PA-C Work Phone: [facility] Start: 06-26-2022 End: 06-26-2022 ambulatory [facility] Start: 05-02-2022 End: 05-02-2022 ambulatory [facility] Start: 05-02-2022 End: 05-02-2022 Subsequent hospital visit by physician Ricci Davis MD Work Phone: OR ASSISTANT FACILITY MANAGER Comment on above: 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) Start: 03-06-2022 End: 03-07-2022 ambulatory [facility] Start: 03-05-2022 End: 03-05-2022 ambulatory WILLIE R [facility] Start: 02-21-2022 End: 02-21-2022 ambulatory [facility] Procedures Date Procedure Procedure Detail Performing Clinician Start: 08-25-2024 Adult depression scr eening assessment Jeannie Soliz PREVENTIVE MEDICINE PHYSICIAN.SENIOR ASSET MANAGER Work Phone: Start: 01-31-2024 Us pelvic nonobstetr ic real-time image complete Jaquelin Benavidez APRN.CNM Work Phone: Start: 01-24-2024 BACTERIAL VAGINOSIS NAAT Jaquelin Benavidez APRN.CNM Work Phone: Start: 01-24-2024 Iadna chlamydia trachomatis amplified probe tq Jaquelin Benavidez APRN.CNM Work Phone: Start: 05-02-2022 Echo transthorc r-t 2d w/wo m-mode rec f-up/lmtd Akila Christopher PREVENTIVE MEDICINE PHYSICIAN-SENIOR ASSET MANAGER Work Phone: Start: 05-02-2022 Urine test visual color cmprsn meths Cecy Dominguez PA-C Work Phone: Plan of Treatment Date Care Activity Detail Author Start: 08-25-2025 Anxiety Screening Anxiety Screening [facility] Start: 08-25-2025 Depression Screening Depression Screening [facility] Start: 08-25-2025 Hepatitis C screening Hepatitis C Screening [facility] Comment on above: Postponed from 11/01/2021 (Declined at t his time) Start: 08-25-2025 HIV screening HIV Screening [facility] Comment on above: Postponed from 11/01/2021 (Declined at t his time) Start: 08-25-2025 Meningococcal B Vaccine (1 of 2 - Standard) Meningococcal B Vaccine (1 of 2 - Standard) [facility] Comment on above: Postponed from 2019 (Declined at t his time) Start: 01-25-2025 End: 01-25-2025 Patient encounter procedure 01/25/2025 10:45 AM EDT Office Visit OB/Gynecology [address] [place] [id number] Jaquelin Benavidez APRN.CN [address] [place] [address] annual OB/Gynecology Comment on above: annual Start: 01-23-2025 GC (Gonorrhea) Screening (18-24) GC (Gonorrhea) Screening (18-24) [facility] Start: 01-23-2025 Screening for Chlamydia trachomatis Chlamydia Screening (18-24) [facility] Start: 12-14-2024 Urine microalbumin profile [facility] Start: 11-25-2024 End: 02-24-2025 CBC W Auto Differential panel - Blood COMPLETE BLOOD COUNT AND DIFFERENTIAL Lab Routine Iron deficiency anemia due to chronic blood loss Expected: 11/25/2024, Expires: 02/24/2025 [facility] Comment on above: Expected: 11/25/2024, Expires: Start: 11-25-2024 End: 02-24-2025 Iron and Iron binding capacity panel - Serum or Plasma IRON AND TIBC Lab Routine Iron deficiency anemia due to chronic blood loss Expected: 11/25/2024, Expires: 02/24/2025 [facility] Work Phone: Comment on above: Expected: 11/25/2024, Expires: Start: 11-16-2024 Influenza [facility] Comment on above: Postponed from 01/19/2024 (Declined at t his time) Start: 08-25-2024 End: 11-24-2024 C reactive protein [Mass/volume] in Serum or Plasma [facility] Comment on above: Expected: 08/25/2024, Expires: Start: 08-25-2024 End: 11-24-2024 CBC W Auto Differential panel - Blood [facility] Work Phone: Comment on above: Expected: 08/25/2024, Expires: Start: 08-25-2024 End: 11-24-2024 Comprehensive metabolic 2000 panel - Serum or Plasma [facility] Comment on above: Expected: 08/25/2024, Expires: Start: 08-25-2024 End: 11-24-2024 Erythrocyte sedimentation rate [facility] Comment on above: Expected: 08/25/2024, Expires: Start: 08-25-2024 End: 11-24-2024 Ferritin [Mass/volume] in Serum or Plasma [facility] Comment on above: Expected: 08/25/2024, Expires: Start: 08-25-2024 End: 11-24-2024 Iron and Iron binding capacity panel - Serum or Plasma [facility] Comment on above: Expected: 08/25/2024, Expires: Start: 08-25-2024 End: 11-24-2024 Nuclear Ab [Presence] in Serum by Immunoassay [facility] Comment on above: Expected: 08/25/2024, Expires: Start: 05-21-2024 End: 05-21-2024 Patient encounter procedure 05/21/2024 7:00 AM EST Office Visit [facility] [address] [place], [place] [id number] Jeannie Soliz APRN.SENIOR ASSET MANAGER [address] [place] [address] est care physical okay per [facility] Comment on above: est care physical okay per RS Start: 05-01-2024 End: 05-01-2024 ambulatory 05/01/2024 2:00 PM EST Results Only [facility] [address] [place] [address] [facility] Start: 04-24-2024 End: 04-24-2024 Patient encounter procedure 04/24/2024 9:30 AM EST Office Visit OB/Gynecology [address] [place] [address] Jaquelin Benavidez APRN.CN [address] [place] [address] IUD f/up OB/Gynecology Comment on above: IUD f/up Start: 02-11-2024 End: 02-11-2024 ambulatory 02/11/2024 8:15 AM EDT [facility] OB/Gynecology [address] [place] [address] Jaquelin Benavidez APRN.CN [address] [place] [address] VV f/up Pelivc US and LABS OB/Gynecology Comment on above: VV f/up Pelivc US and LABS Start: 02-11-2024 End: 02-11-2024 Patient encounter procedure OB/Gynecology Comment on above: rescheduled from a vv to in office IUD removal / discus s contraception (possible Mirena insertion) Start: 01-31-2024 End: 01-31-2024 ambulatory 01/31/2024 8:00 AM EDT Procedure OB/Gynecology [address] [place] [address] Abnormal uterine bleeding (AUB) [N93.9] OB/Gynecology Comment on above: Abnormal uterine bleeding (AUB) [N93.9] Start: 01-24-2024 End: 04-24-2024 TESTOSTERONE, FREE AND TOTAL [facility] Comment on above: Expected: 01/24/2024, Expires: Start: 01-24-2024 End: 01-23-2025 US Pelvis PELVIC US [facility] Imaging Routine Abnormal uterine bleeding (AUB) Expected: 01/24/2024, Expires: 01/23/2025 [facility] Work Phone: Comment on above: Expected: 01/24/2024, Expires: Start: 01-19-2024 Covid-19 Vaccine ( season) Covid-19 Vaccine ( season) [facility] Start: 01-19-2024 Covid-19 Vaccine ( season) Covid-19 Vaccine ( season) [facility] Start: 01-19-2024 Influenza vaccination [facility] Start: 01-18-2023 Influenza [facility] Start: 07-03-2022 End: 07-03-2022 Patient encounter procedure 07/03/2022 Office Visit [place] [address] [facility] Start: 05-20-2022 DEPRESSION ASSESSMENT DEPRESSION ASSESSMENT [facility] Start: 05-02-2022 End: 05-02-2022 CARDIAC ABLATION PROCEDURE CARDIAC ABLATION PROCEDURE AVNRT (AV reagan re-entry tachycardia) 05/02/2022 8:02 AM EST [facility] OR ASSISTANT FACILITY MANAGER Start: 05-02-2022 End: 05-02-2022 CARDIAC ELECTROPHYSIOLOGY STUDY CARDIAC ELECTROPHYSIOLOGY STUDY AVNRT (AV reagan re-entry tachycardia) 05/02/2022 8:02 AM EST [facility] OR ASSISTANT FACILITY MANAGER Start: 01-18-2022 FLU (#1) FLU (#1) [facility] Start: 01-18-2022 Influenza vaccination INFLUENZA (#1) [facility] Start: 11-01-2021 Anxiety Screening Anxiety Screening [facility] Start: 11-01-2021 CHLAMYDIA SCREENING (18-24) CHLAMYDIA SCREENING (18-24) [facility] Start: 11-01-2021 Depression Screening Depression Screening [facility] Start: 11-01-2021 GC (GONORRHEA) SCREENING (18-24) GC (GONORRHEA) SCREENING (18-24) [facility] Start: 11-01-2021 Hearing Screening Hearing Screening [facility] Start: 11-01-2021 HEPATITIS C SCREENING HEPATITIS C SCREENING [facility] Start: 11-01-2021 Hepatitis C screening Hepatitis C Screening [facility] Start: 11-01-2021 HIV SCREENING HIV SCREENING [facility] Start: 11-01-2021 HIV screening HIV Screening [facility] Start: 2019 MenACWY (1 - 2-dose series) MenACWY (1 - 2-dose series) [facility] Start: 2019 Meningococcal B Vaccine: Consider Based On Risk (1 of 2 - Patient Seeks Protection) Meningococcal B Vaccine: Consider Based On Risk (1 of 2 - Patient Seeks Protection) [facility] Start: 2019 MENINGOCOCCAL CONJUGATE (2 - 2-dose series) MENINGOCOCCAL CONJUGATE (2 - 2-dose series) [facility] Start: 11-01-2018 Vision Screening Vision Screening [facility] Start: 11-01-2017 PEDS TO ADULT TRANSITION ANNUAL ASSESSMENT PEDS TO ADULT TRANSITION ANNUAL ASSESSMENT [facility] Start: 11-01-2014 HPV (1 - 2-dose series) HPV (1 - 2-dose series) [facility] Start: 11-01-2013 MenB (1 of 2 - MenB 2-Dose Bexsero Series ) MenB (1 of 2 - MenB 2-Dose Bexsero Series ) [facility] Start: 11-01-2013 MENINGOCOCCAL B: Consider based on risk (1 of 2 - Risk Bexsero 2-dose series) MENINGOCOCCAL B: Consider based on risk (1 of 2 - Risk Bexsero 2-dose series) [facility] Start: 06-29-2011 MMR (1 of 2 - Standard series) MMR (1 of 2 - Standard series) [facility] Start: 06-29-2011 Varicella (1 of 2 - 2-dose childhood series) Varicella (1 of 2 - 2-dose childhood series) [facility] Start: 11-01-2010 Tetanus Diphtheria and Pertussis Vaccines (1 - Tdap) Tetanus Diphtheria and Pertussis Vaccines (1 - Tdap) [facility] Start: 11-01-2004 Hepatitis A (1 of 2 - 2-dose series) Hepatitis A (1 of 2 - 2-dose series) [facility] Start: 05-03-2004 COVID-19 (#1) COVID-19 (#1) [facility] Start: 05-03-2004 COVID-19 VACCINE (#1) COVID-19 VACCINE (#1) [facility] Start: 2003 Hepatitis B (1 of 3 - 3-dose series) Hepatitis B (1 of 3 - 3-dose series) [facility] End: 05-02-2022 Ecg routine ecg w/least 12 lds i&r only EKG 12 lead (ECG) [facility] ECG Interface Routine One Time for 1 Occurrences starting 05/02/2022 until 05/02/2022 [facility] Work Phone: Comment on above: One Time for 1 Occurrences starting 04/19 until 05/02/2022 Insertion intrauteri ne device iud INSERT INTRAUTERINE DEVICE Procedures Routine Encounter for IUD insertion Ordered: 02/28/2024 [facility] Comment on above: Ordered: 02/28/2024 Removal intrauterine device iud REMOVE INTRAUTERINE DEVICE Procedures Routine Encounter for IUD removal Ordered: 02/10/2024 [facility] Work Phone: Comment on above: Ordered: 02/10/2024 Removal intrauterine device iud REMOVE INTRAUTERINE DEVICE Procedures Routine Encounter for IUD removal Ordered: 02/28/2024 [facility] Work Phone: Comment on above: Ordered: 02/28/2024 End: 10-14-2023 US BREAST LTD LEFT US BREAST LTD LEFT Radiology Routine Fibrocystic disease of left breast Breast pain 1 Occurrences starting 09/14/2022 until 10/14/2023 [facility] Work Phone: Comment on above: 1 Occurrences starting 09/14/2022 until 10/14/2023 Immunizations Immunization Date Immunization Notes Care Provider Evangelist blankenship 06-15-2015 human papilloma viru s vaccine, quadrivalent Cecy William PA-C Work Phone: [facility] 02-11-2015 Human Papillomavirus 9-valent vaccine Cecy William PA-C Work Phone: [facility] 12-14-2014 human papilloma viru s vaccine, quadrivalent Cecy William PA-C Work Phone: [facility] 12-14-2014 meningococcal polysaccharide (groups A, C, Y and W-135) diphtheria toxoid conjugate vaccine (MCV4P) Cecy William PA-C Work Phone: [facility] 12-14-2014 tetanus toxoid, redu magda diphtheria toxoid, and acellular pertussis vaccine, adsorbed Cecy William PA-C Work Phone: [facility] 06-01-2011 influenza virus vacc ine, live, attenuated, for intranasal use Cecy William PA-C Work Phone: [facility] Work Phone: 06-01-2011 influenza virus vacc ine, unspecified formulation Jaquelin Benavidez APRN.CN Work Phone: [facility] 04-19-2010 influenza virus vacc ine, live, attenuated, for intranasal use Cecy William PA-C Work Phone: [facility] 03-29-2009 novel influenza-H1N1 -09, all formulations Cecy William PA-C Work Phone: [facility] Work Phone: 03-03-2009 influenza virus vacc ine, live, attenuated, for intranasal use Cecy William PA-C Work Phone: [facility] Work Phone: 11-11-2008 diphtheria, tetanus toxoids and acellular pertussis vaccine Cecy William PA-C Work Phone: [facility] Work Phone: 11-11-2008 poliovirus vaccine, inactivated Cecy William PA-C Work Phone: [facility] Work Phone: 03-04-2008 influenza virus vacc ine, live, attenuated, for intranasal use Cecy William PA-C Work Phone: [facility] Work Phone: 11-06-2007 hepatitis A vaccine, unspecified formulation Cecy William PA-C Work Phone: [facility] Work Phone: 11-06-2007 varicella virus vaccine Will lara William PA-C Work Phone: [facility] Work Phone: 04-04-2007 influenza virus vacc ine, unspecified formulation Cecy William PA-C Work Phone: [facility] Work Phone: 11-06-2006 hepatitis A vaccine, unspecified formulation Cecy William PA-C Work Phone: [facility] Work Phone: 11-06-2006 measles, mumps and rubella virus vaccine Cecy William PA-C Work Phone: [facility] Work Phone: 05-04-2005 diphtheria, tetanus toxoids and acellular pertussis vaccine Cecy William PA-C Work Phone: [facility] Work Phone: 05-04-2005 haemophilus influenz ae type b vaccine, HbOC conjugate Cecy William PA-C Work Phone: [facility] Work Phone: 05-04-2005 measles, mumps and rubella virus vaccine Cecy William PA-C Work Phone: [facility] Work Phone: 03-24-2005 influenza virus vacc ine, unspecified formulation Cecy William PA-C Work Phone: [facility] Work Phone: 11-16-2004 pneumococcal conjuga te vaccine, 7 valent Cecy William PA-C Work Phone: [facility] Work Phone: 11-16-2004 varicella virus vaccine Will lara William PA-C Work Phone: [facility] Work Phone: 06-08-2004 influenza virus vacc ine, unspecified formulation Cecy William PA-C Work Phone: [facility] Work Phone: 05-04-2004 diphtheria, tetanus toxoids and acellular pertussis vaccine Cecy William PA-C Work Phone: [facility] Work Phone: 05-04-2004 haemophilus influenz ae type b vaccine, HbOC conjugate Cecy William PA-C Work Phone: [facility] Work Phone: 05-04-2004 hepatitis B vaccine, pediatric or pediatric/adolescent dosage Cecy William PA-C Work Phone: [facility] Work Phone: 05-04-2004 influenza virus vacc ine, unspecified formulation Cecy William PA-C Work Phone: [facility] Work Phone: 05-04-2004 pneumococcal conjuga te vaccine, 7 valent Cecy William PA-C Work Phone: [facility] Work Phone: 05-04-2004 poliovirus vaccine, inactivated Cecy William PA-C Work Phone: [facility] Work Phone: 03-08-2004 diphtheria, tetanus toxoids and acellular pertussis vaccine Cecy William PA-C Work Phone: [facility] Work Phone: 03-08-2004 haemophilus influenz ae type b vaccine, HbOC conjugate Cecy William PA-C Work Phone: [facility] Work Phone: 03-08-2004 hepatitis B vaccine, pediatric or pediatric/adolescent dosage Cecy William PA-C Work Phone: [facility] Work Phone: 03-08-2004 pneumococcal conjuga te vaccine, 7 valent Cecy William PA-C Work Phone: [facility] Work Phone: 03-08-2004 poliovirus vaccine, inactivated Cecy William PA-C Work Phone: [facility] Work Phone: 01-06-2004 diphtheria, tetanus toxoids and acellular pertussis vaccine Cecy William PA-C Work Phone: [facility] Work Phone: 01-06-2004 haemophilus influenz ae type b vaccine, HbOC conjugate Cecy William PA-C Work Phone: [facility] Work Phone: 01-06-2004 hepatitis B vaccine, pediatric or pediatric/adolescent dosage Cecy William PA-C Work Phone: [facility] Work Phone: 01-06-2004 pneumococcal conjuga te vaccine, 7 valent Cecy William PA-C Work Phone: [facility] Work Phone: 01-06-2004 poliovirus vaccine, inactivated Cecy William PA-C Work Phone: [facility] Work Phone: 2003 hepatitis B vaccine, pediatric or pediatric/adolescent dosage Cecy William PA-C Work Phone: [facility] Work Phone: Payers Date Payer Category Payer Self-pay 2023 Private Health Insurance [employer] [id number] 2023 Unknown [id number] 2022 Unknown [id number] 2020 Unknown [id number] 2003 Unknown [id number] 2003 Unknown [id number] 2003 Unknown [id number] 2003 Unknown [id number] 2003 Unknown [id number] 1981 Unknown [id number] 1981 Unknown [id number] 1981 Unknown [id number] Unknown [id number] Unknown [id number] Social History Date Type Detail Facility Start: 06-27-2019 End: 02-21-2022 Tobacco smoking status NHIS Never smoked tobacco [facility] Start: 02-21-2022 End: 07-03-2022 Tobacco use and exposure Smokeless tobacco non-user [facility] Start: 2003 Sex Assigned At Not on file A tameka [facility] Start: 04-22-2022 End: 05-02-2022 Exposure to SARS-CoV-2 (event) Not sure [facility] Start: 07-03-2022 End: 08-25-2024 Alcohol intake Lifetime non-drinker (finding) [facility] Start: 07-03-2022 History SDOH Alcohol Frequency 1 [facility] Start: 07-03-2022 History SDOH Alcohol Std Drinks 0 [facility] Start: 07-03-2022 History SDOH Social Connections Phone 5 [facility] Start: 07-03-2022 History SDOH Social Connections Get Together 3 [facility] Start: 07-03-2022 History SDOH Social Connections Living 98 [facility] Start: 07-03-2022 History SDOH Physica l Activity DPW 6 [facility] Start: 07-03-2022 History SDOH Stress 2 [facility] Start: 07-03-2022 History SDOH Financial 4 [facility] Start: 07-03-2022 End: 01-24-2024 History of Social function [place] [facility] Start: 07-03-2022 End: 01-24-2024 Social connection and isolation panel [facility] Do you belong to any clubs or organizations such as anabaptism groups, unions, fraternal or athletic groups, or school groups? Yes [facility] Are you now , , , , never or living with a partner? Patient declined [facility] How often to you hav e a drink containing alcohol? Never [facility] How hard is it for y ou to pay for the very basics like food, housing, medical care, and heating Not very hard [facility] Do you feel stress - tense, restless, nervous, or anxious, or unable to sleep at night because your mind is troubled all the time - these days [OSQ] Only a little [facility] (I/We) worried wheth er (my/our) food would run out before (I/we) got money to buy more. Never true [facility] In the past 12 month s, was there a time when you were not able to pay the mortgage or rent on time? No [facility] Start: 2003 Sex Assigned At Female W [facility] Functional Status Date Assessment Result Facility 12-14-2014 Are you deaf, or do you have serious difficulty hearing No 12/14/2014 11:20 AM EDT Rita Dugan MA No [facility] 12-14-2014 Are you blind, or do you have serious difficulty seeing, even when wearing glasses No 12/14/2014 11:20 AM EDT Rita Dugan MA No [facility] 12-14-2014 Do you have serious difficulty walking or climbing stairs No 12/14/2014 11:20 AM EDT Rita Dugan MA No [facility] 12-14-2014 Do you have difficul ty dressing or bathing No 12/14/2014 11:20 AM EDT Rita Dugan MA No [facility] Mental Status Date Assessment Result Facility 12-14-2014 Because of a physica l, mental, or emotional condition, do you have serious difficulty concentrating, remembering, or making decisions No 12/14/2014 11:20 AM EDT Rita Dugan MA No [facility] Clinical Notes 02-21-2022 to 08-27-2024 Telephone Encounter - Jeannie Soliz APRN.CNP - 08/27/2024 9:31 AM EDTTelephone Encounter - Jeannie Soliz APRN.CNP - 08/27/2024 9:31 AM EDTSJeannie garrison APRN.CNP - 08/25/2024 8:35 AM EDT Note Date & Type Note Facility 08-27-2024 Telephone encounter Note That's just the iron recheck that I put in for 3 months in November. Jeannie Soliz APRN.CNP [facility] 08-27-2024 Miscellaneous Notes That's just the iron recheck that I put in for 3 months in November. Jeannie Soliz APRN.CNP Please see pt message. Emily Camarena MA documented in this encounter [facility] 08-27-2024 Telephone encounter Note Please see pt message. Emily Camarena MA [facility] 08-27-2024 Miscellaneous Notes Pt informed, verbalized understanding Emily Camarena MA We need to increase the iron to bid. I sent this in for her. I also sent in vitamin C that she will take once daily. This helps the iron to absorb better. We'll recheck her levels again in 3 months. The following approved medication requests have been transmitted electronically. Requested Prescriptions Signed Prescriptions Disp Refills ferrous sulfate 325 mg (65 mg iron) EC tablet 180 tablet 1 Sig: Take 1 tablet by mouth two times a day with meals. Ascorbic Acid (VITAMIN C) 1,000 mg tablet 90 tablet 1 Sig: Take 1 tablet by mouth once daily. Jeannie Soliz APRN.CNP Pt informed. Pt reports she takes ferrous sulfate 325mg daily. Med is on her med list. Emily Camarena MA Please let her know that her iron level is low again. Does she take a daily iron supplement? I'm thinking she had told me she doesn't currently. If not please let me know and I would like to get her started on something. Jeannie Soliz APRN.CNP documented in this encounter [facility] 08-27-2024 Telephone encounter Note Pt informed, verbalized understanding Emily Camarena MA [facility] 08-26-2024 Telephone encounter Note We need to increase the iron to bid. I sent this in for her. I also sent in vitamin C that she will take once daily. This helps the iron to absorb better. We'll recheck her levels again in 3 months. The following approved medication requests have been transmitted electronically. Requested Prescriptions Signed Prescriptions Disp Refills ferrous sulfate 325 mg (65 mg iron) EC tablet 180 tablet 1 Sig: Take 1 tablet by mouth two times a day with meals. Ascorbic Acid (VITAMIN C) 1,000 mg tablet 90 tablet 1 Sig: Take 1 tablet by mouth once daily. Jeannie Soliz APRN.CNP [facility] 08-26-2024 Telephone encounter Note Pt informed. Pt reports she takes ferrous sulfate 325mg daily. Med is on her med list. Emily Camarena MA [facility] 08-26-2024 Telephone encounter Note Please let her know that her iron level is low again. Does she take a daily iron supplement? I'm thinking she had told me she doesn't currently. If not please let me know and I would like to get her started on something. Jeannie Soliz APRN.CNP [facility] 08-25-2024 Note HNO ID: [id number] Author: JEANNIE SOLIZ APRN.CNP Service: ? Author Type: Nurse Practitioner Type: Progress Notes Filed: 08/25/2024 08:39 Note Text: 08/25/2024 The patient consented to the use of ambient AI software for draft documentation of the visit consistent with [facility]?s Notice of Privacy Practices. HPI: Frank is a 18-year-old female with a history of SVT and two cardiac ablations, presenting for an initial visit and evaluation of intermittent lymphadenopathy. Lymphadenopathy: - Intermittent lymphadenopathy in the groin and neck, noted to be really big and visible at times. - Initially noticed during a recent illness, but has recurred when not sick. - Describes the lymph nodes as "very painful" to touch. - Denies current swelling in the groin or neck. SVT: - History of SVT with heart rates up to 300 bpm, requiring two cardiac ablations, the last one performed around age 15. - Missed last cardiology appointment but reports no recent episodes of tachycardia. - Describes past episodes as "wearing me out" and requiring "a bunch of compressions." Edema: - Reports morning edema, stating, It's usually in the morning when I experience the most swelling." - Noted swelling in toes by the end of work shifts, described as like sausages." - this is chronic and a normal thing for her, not something she is concerned about Menorrhagia: - History of menorrhagia with "ginormous" blood clots prior to IUD placement. - Currently experiencing regular periods with cramping, but notes improvement: Now it's like the normal period, but like, for a normal person." Acne: - Reports worsening acne since IUD placement. Family History: - Maternal grandfather with a history of migraines. Social History: - Denies smoking, vaping, or recreational drug use. - Sexually active, using an IUD for contraception. - Engaged to be on January 30. - Currently a student at [employer], graduating in September, with plans to start a master's program in March. PAST MEDICAL HISTORY Diagnosis Date PMH - PAST MEDICAL HISTORY OF PFO and heart murmur PMH - PAST MEDICAL HISTORY OF 11/14/09 normal color vision Syncopal episodes negative workup EEG, Cardio (other than PFO), suspect vasovagal Current Outpatient Medications on File Prior to Visit Medication Sig spironolactone (ALDACTONE) 100 mg tablet Take 100 mg by mouth once daily. ferrous sulfate 325 mg (65 mg iron) EC tablet Take 325 mg by mouth. levonorgestrel (MIRENA) 21 mcg/24 hr (8 yrs) 52 mg IUD 1 Each by INTRAUTERINE route as directed. No current facility-administered medications on file prior to visit. Review of Systems: Genitourinary: (+) pelvic cramping Musculoskeletal: (+) pedal edema Skin: (+) acne Hematologic/Lymphatic: (+) painful inguinal lymphadenopathy Physical Exam: BP 102/65 (BP Site: Left Arm, BP Position: Sitting, BP Cuff Size: Regular Adult) Pulse 75 Ht 168 cm (5' 6.14") Wt 82.6 kg (182 lb 3.2 oz) LMP 04/17/2024 (Within Days) SpO2 100% BMI 29.28 kg/m? GENERAL: NAD, alert and oriented. SKIN: Unremarkable, no rash or skin lesions. HEAD: Normocephalic. EYES: PERRLA, EOMI, conjunctiva clear. EARS: External ears normal, canals clear, TM's normal. NOSE/SINUSES: Nares normal. Septum midline. OROPHARYNX: Lips, mucosa, and tongue normal, good dentition. No oral lesions noted. NECK: Supple, no lymphadenopathy, normal thyroid, no carotid bruits. LUNGS: Clear to auscultation bilaterally, no wheezes/rhonchi/rales. HEART: Regular rate and rhythm, no murmurs. No ectopy. EXTREMITIES: Normal, no deformities, no skin discoloration, no edema. NEURO: Awake, alert and oriented x3, cranial nerves II-XII grossly intact, normal gait, no involuntary motions. ABDOMEN: WNL Diagnostics Reviewed: Assessment/Plan: 1. Well adult exam (Z00.00) - Comprehensive physical examination performed. - Discussed immunizations; flu shot not necessary at this time due to end of season. Meningitis vaccine not required unless living in close quarters. - No concerns for hepatitis C or HIV. - Patient is sexually active and currently using an IUD for contraception. - Discussed potential addition of a low-dose oral contraceptive to manage acne and cramping; patient to follow up with gynecology. - No follow-up needed unless new concerns arise; annual check-ups recommended. 2. Lymphadenopathy, generalized (R59.1) - Intermittent swelling of lymph nodes, particularly in the groin area, noted. - Lymphadenopathy appears to be reactive, associated with recent illness. - Ordered lab work to rule out any underlying pathology. - Will review lab results and follow up via [employer]. 3. Iron deficiency anemia due to chronic blood loss (D50.0) - History of heavy menstrual bleeding leading to iron deficiency anemia. - Symptoms have improved with current IUD use. - Ordered CBC to assess current hemoglobin level (more content not included)... [facility] 08-25-2024 History of Present illness Narrative 08/25/2024 The patient consented to the use of Svpply software for draft documentation of the visit consistent with [facility] s Notice of Privacy Practices. HPI: Frank is a 18-year-old female with a history of SVT and two cardiac ablations, presenting for an initial visit and evaluation of intermittent lymphadenopathy. Lymphadenopathy: - Intermittent lymphadenopathy in the groin and neck, noted to be "really big" and visible at times. - Initially noticed during a recent illness, but has recurred when not sick. - Describes the lymph nodes as "very painful" to touch. - Denies current swelling in the groin or neck. SVT: - History of SVT with heart rates up to 300 bpm, requiring two cardiac ablations, the last one performed around age 15. - Missed last cardiology appointment but reports no recent episodes of tachycardia. - Describes past episodes as "wearing me out" and requiring "a bunch of compressions." Edema: - Reports morning edema, stating, It's usually in the morning when I experience the most swelling." - Noted swelling in toes by the end of work shifts, described as like sausages. - this is chronic and a normal thing for her, not something she is concerned about Menorrhagia: - History of menorrhagia with "ginormous" blood clots prior to IUD placement. - Currently experiencing regular periods with cramping, but notes improvement: "Now it's like the normal period, but like, for a normal person." Acne: - Reports worsening acne since IUD placement. Family History: - Maternal grandfather with a history of migraines. Social History: - Denies smoking, vaping, or recreational drug use. - Sexually active, using an IUD for contraception. - Engaged to be on January 30. - Currently a student at [employer], graduating in September, with plans to start a master's program in March. PAST MEDICAL HISTORY Diagnosis Date PMH - PAST MEDICAL HISTORY OF PFO and heart murmur PMH - PAST MEDICAL HISTORY OF 11/14/09 normal color vision Syncopal episodes negative workup EEG, Cardio (other than PFO), suspect vasovagal Current Outpatient Medications on File Prior to Visit Medication Sig spironolactone (ALDACTONE) 100 mg tablet Take 100 mg by mouth once daily. ferrous sulfate 325 mg (65 mg iron) EC tablet Take 325 mg by mouth. levonorgestrel (MIRENA) 21 mcg/24 hr (8 yrs) 52 mg IUD 1 Each by INTRAUTERINE route as directed. No current facility-administered medications on file prior to visit. Review of Systems: Genitourinary: (+) pelvic cramping Musculoskeletal: (+) pedal edema Skin: (+) acne Hematologic/Lymphatic: (+) painful inguinal lymphadenopathy Physical Exam: BP 102/65 (BP Site: Left Arm, BP Position: Sitting, BP Cuff Size: Regular Adult) Pulse 75 Ht 168 cm (5' 6.14") Wt 82.6 kg (182 lb 3.2 oz) LMP 04/17/2024 (Within Days) SpO2 100% BMI 29.28 kg/m GENERAL: NAD, alert and oriented. SKIN: Unremarkable, no rash or skin lesions. HEAD: Normocephalic. EYES: PERRLA, EOMI, conjunctiva clear. EARS: External ears normal, canals clear, TM's normal. NOSE/SINUSES: Nares normal. Septum midline. OROPHARYNX: Lips, mucosa, and tongue normal, good dentition. No oral lesions noted. NECK: Supple, no lymphadenopathy, normal thyroid, no carotid bruits. LUNGS: Clear to auscultation bilaterally, no wheezes/rhonchi/rales. HEART: Regular rate and rhythm, no murmurs. No ectopy. EXTREMITIES: Normal, no deformities, no skin discoloration, no edema. NEURO: Awake, alert and oriented x3, cranial nerves II-XII grossly intact, normal gait, no involuntary motions. ABDOMEN: WNL Diagnostics Reviewed: Assessment/Plan: 1. Well adult exam (Z00.00) - Comprehensive physical examination performed. - Discussed immunizations; flu shot not necessary at this time due to end of season. Meningitis vaccine not required unless living in close quarters. - No concerns for hepatitis C or HIV. - Patient is sexually active and currently using an IUD for contraception. - Discussed potential addition of a low-dose oral contraceptive to manage acne and cramping; patient to follow up with gynecology. - No follow-up needed unless new concerns arise; annual check-ups recommended. 2. Lymphadenopathy, generalized (R59.1) - Intermittent swelling of lymph nodes, particularly in the groin area, noted. - Lymphadenopathy appears to be reactive, associated with recent illness. - Ordered lab work to rule out any underlying pathology. - Will review lab results and follow up via [employer]. 3. Iron deficiency anemia due to chronic blood loss (D50.0) - History of heavy menstrual bleeding leading to iron deficiency anemia. - Symptoms have improved with current IUD use. - Ordered CBC to assess current hemoglobin levels. - Will review lab results and follow up via [employer]. 4. Encounter for screening examination for other mental health and behavioral disorders (Z13.39) 5. Screening for depression (Z13.31) - No current mental health concerns reported. - Discussed the importance of mental health screening. - No further action required at this time. The patient indicates understanding of these issues and agrees with the plan. Red flag symptoms reviewed as needed. Follow up: Jeannie Soliz APRN.CNP documented in this encounter [facility] 05-05-2024 Telephone encounter Note Ok to establish care with myself. Jeannie Soliz APRN.CNP [facility] Work Phone: 05-05-2024 Miscellaneous Notes Ok to establish care with myself. Jeannie Soliz APRN.CNP documented in this encounter [facility] 04-29-2024 Note HNO ID: [id number] Author: MC COY, ELLIS, RN Service: ? Author Type: Registered Nurse Type: Progress Notes Filed: 04/29/2024 14:17 Note Text: Patient referred to Blood Management for evaluation and treatment of pre-surgical anemia and/or iron deficiency. Non-surgical: menorrhagia Date of surgery: NA Medical/Surgical History: PAST MEDICAL HISTORY Diagnosis Date PMH - PAST MEDICAL HISTORY OF PFO and heart murmur PMH - PAST MEDICAL HISTORY OF 11/14/09 normal color vision Syncopal episodes negative workup EEG, Cardio (other than PFO), suspect vasovagal PAST SURGICAL HISTORY Procedure Laterality Date ABLATE HEART DYSRHYTHM FOCUS 07/02/2019 PAST SURGICAL HISTORY OF 06/20/2008 tonsils and adenoids removed - Dr Barbour Other significant Medical/Surgical history: - Prior diagnosis of anemia - Blood loss Current Outpatient Medications Medication Sig ferrous sulfate 325 mg (65 mg iron) EC tablet Take 325 mg by mouth. levonorgestrel (MIRENA) 21 mcg/24 hr (8 yrs) 52 mg IUD 1 Each by INTRAUTERINE route as directed. No current facility-administered medications for this visit. Current medications that may affect iron absorption and/or blood loss: - None Baseline laboratory values: WBC (k/uL) Date Value 04/24/2024 6.74 RBC (m/uL) Date Value 04/24/2024 4.80 Hemoglobin (g/dL) Date Value 04/24/2024 11.5 Hematocrit (%) Date Value 04/24/2024 37.6 MCV (fL) Date Value 04/24/2024 78.3 (L) MCH (pg) Date Value 04/24/2024 24.0 (L) MCHC (g/dL) Date Value 04/24/2024 30.6 RDW-CV (%) Date Value 04/24/2024 17.9 (H) Platelet Count (k/uL) Date Value 04/24/2024 95 (L) MPV (fL) Date Value 01/24/2024 11.3 Iron Date Value Ref Range Status 04/24/2024 44 41 - 186 ug/dL Final TIBC Date Value Ref Range Status 04/24/2024 467 (H) 232 - 386 ug/dL Final Ferritin Date Value Ref Range Status 04/24/2024 9.3 (L) 14.7 - 205.1 ng/mL Final Transferrin Saturation Date Value Ref Range Status 04/24/2024 9.4 (L) 15.0 - 57.0 % Final Assess for the need to augment a patient?s natural red blood cell production: - Blood transfusion avoidance - Iron depletion Recommendations according to Blood Management patient care guidelines: - Oral iron continued with vitamin C unless bleeding increases. Clinical information is sent to a provider for review and evaluation for treatment. [facility] 04-29-2024 History of Present illness Narrative Patient referred to Blood Management for evaluation and treatment of pre-surgical anemia and/or iron deficiency. Non-surgical: menorrhagia Date of surgery: NA Medical/Surgical History: PAST MEDICAL HISTORY Diagnosis Date PMH - PAST MEDICAL HISTORY OF PFO and heart murmur PMH - PAST MEDICAL HISTORY OF 11/14/09 normal color vision Syncopal episodes negative workup EEG, Cardio (other than PFO), suspect vasovagal PAST SURGICAL HISTORY Procedure Laterality Date ABLATE HEART DYSRHYTHM FOCUS 07/02/2019 PAST SURGICAL HISTORY OF 06/20/2008 tonsils and adenoids removed - Dr Barbour Other significant Medical/Surgical history: - Prior diagnosis of anemia - Blood loss Current Outpatient Medications Medication Sig ferrous sulfate 325 mg (65 mg iron) EC tablet Take 325 mg by mouth. levonorgestrel (MIRENA) 21 mcg/24 hr (8 yrs) 52 mg IUD 1 Each by INTRAUTERINE route as directed. No current facility-administered medications for this visit. Current medications that may affect iron absorption and/or blood loss: - None Baseline laboratory values: WBC (k/uL) Date Value 04/24/2024 6.74 RBC (m/uL) Date Value 04/24/2024 4.80 Hemoglobin (g/dL) Date Value 04/24/2024 11.5 Hematocrit (%) Date Value 04/24/2024 37.6 MCV (fL) Date Value 04/24/2024 78.3 (L) MCH (pg) Date Value 04/24/2024 24.0 (L) MCHC (g/dL) Date Value 04/24/2024 30.6 RDW-CV (%) Date Value 04/24/2024 17.9 (H) Platelet Count (k/uL) Date Value 04/24/2024 95 (L) MPV (fL) Date Value 01/24/2024 11.3 Iron Date Value Ref Range Status 04/24/2024 44 41 - 186 ug/dL Final TIBC Date Value Ref Range Status 04/24/2024 467 (H) 232 - 386 ug/dL Final Ferritin Date Value Ref Range Status 04/24/2024 9.3 (L) 14.7 - 205.1 ng/mL Final Transferrin Saturation Date Value Ref Range Status 04/24/2024 9.4 (L) 15.0 - 57.0 % Final Assess for the need to augment a patient s natural red blood cell production: - Blood transfusion avoidance - Iron depletion Recommendations according to Blood Management patient care guidelines: - Oral iron continued with vitamin C unless bleeding increases. Clinical information is sent to a provider for review and evaluation for treatment. documented in this encounter [facility] 04-24-2024 Instructions Jaquelin Benavidez APRN.CNM - 04/24/2024 10:06 AM EST Take iron with Vitamin C 500mg by mouth once daily documented in this encounter [facility] 04-24-2024 Note HNO ID: [id number] Author: JAQUELIN BENAVIDEZ APRN.CNM Service: ? Author Type: Admissions Officer Type: Progress Notes Filed: 04/26/2024 10:01 Note Text: Service Delivery Manager offered: Patient declines. Frank Woodruff presents today for IUD check. She had a Mirena placed on 02/28/2024. She has had heavy bleeding since placement but then slowed down. Thinks she just had an actual period and pain significantly improved since paragard. Would like to continue and happy at this time. REVIEW OF SYSTEMS: PAIN ASSESSMENT: Negative for pain, history of chronic pain, or current treatment for a chronic pain condition. SENSITIVE EXAM: The sensitive examination was discussed with the Patient or Patient's Authorized Yarn Handler. As applicable, any other physician, advance practice provider, medical student, or other health professional student that will be observing or involved in the sensitive examination for educational or training purposes was discussed with the Patient or Authorized Yarn Handler. The Patient or Authorized Yarn Handler has agreed to proceed with the sensitive examination. (Sensitive examination includes inspection and/or palpation of the breasts, pelvis, prostate and anorectal regions). PHYSICAL EXAMINATION: BP 110/70 Wt 182 lb (82.6kg) LMP 04/17/2024 ABDOMEN:soft, non-tender, no masses, no hepatosplenomegaly, and no lymphadenopathy EXTERNAL GENITALIA: Normal genitalia and Bartholins, Urethra, Sken'e normal CERVIX: smooth, no lesions. IUD strings visible. UTERUS: normal size, mid-plane, regular, and non-tender ADNEXA: negative for tenderness or masses 01/24/24 Hgb 10.5 IMPRESSION/PLAN: IUD correctly positioned. Patient counseled regarding monthly string check. Follow up for annual exam or sooner if needed. CBC repeated today Jaquelin Benavidez APRN.[facility] 04-24-2024 History of Present illness Narrative Service Delivery Manager offered: Patient declines. Frank Woodruff presents today for IUD check. She had a Mirena placed on 02/28/2024. She has had heavy bleeding since placement but then slowed down. Thinks she just had an actual period and pain significantly improved since paragard. Would like to continue and happy at this time. REVIEW OF SYSTEMS: PAIN ASSESSMENT: Negative for pain, history of chronic pain, or current treatment for a chronic pain condition. SENSITIVE EXAM: The sensitive examination was discussed with the Patient or Patient's Authorized Yarn Handler. As applicable, any other physician, advance practice provider, medical student, or other health professional student that will be observing or involved in the sensitive examination for educational or training purposes was discussed with the Patient or Authorized Yarn Handler. The Patient or Authorized Yarn Handler has agreed to proceed with the sensitive examination. (Sensitive examination includes inspection and/or palpation of the breasts, pelvis, prostate and anorectal regions). PHYSICAL EXAMINATION: BP 110/70 Wt 182 lb (82.6kg) LMP 04/17/2024 ABDOMEN:soft, non-tender, no masses, no hepatosplenomegaly, and no lymphadenopathy EXTERNAL GENITALIA: Normal genitalia and Bartholins, Urethra, Sken'e normal CERVIX: smooth, no lesions. IUD strings visible. UTERUS: normal size, mid-plane, regular, and non-tender ADNEXA: negative for tenderness or masses 01/24/24 Hgb 10.5 IMPRESSION/PLAN: IUD correctly positioned. Patient counseled regarding monthly string check. Follow up for annual exam or sooner if needed. CBC repeated today Jaquelin Benavidez APRN.CNM documented in this encounter [facility] 02-28-2024 Instructions Lio Verduzco MA - 02/28/2024 9:36 AM EDT POST IUD INSTRUCTIONS You may have irregular bleeding during the first 3 months of use. You may have mild-severe cramping for the next 48 hours. You may use over the counter medication (Motrin, Tylenol) as needed. Your IUD must be removed or replaced based on the following table: IUD Type Removed or replaced within: Olimpia 3 years Kyleena 5 years Mirena 8 years Liletta 8 years Paragard 10 years Call the office for signs/symptoms of infection such as severe cramping, fever, or unusual bleeding. Check for string placement as instructed by your doctor. If you have any additional questions, please contact the office. documented in this encounter [facility] 02-28-2024 Note HNO ID: [id number] Author: LIO VERDUZCO MA Service: ? Author Type: Admissions Officer Type: Progress Notes Filed: 02/28/2024 10:18 Note Text: Frank presents for removal of IUD due to partial expulsion. UNIVERSAL PROTOCOL / SAFETY CHECKLIST Procedure to be Performed: IUD removal Sign In: A Moment of CARE was completed. Personnel directly involved with the procedure wore the appropriate PPE (Personal Protective Equipment). No special equipment needed. Patient/Surrogate Stated/Verified: PATIENT VERIFIED(optional for EMERGENT procedures): Patient name, Date of , Relevant allergies, and The intended procedure Time Out Communication: Intended patient and procedure match the source documents. Consent documented and matches the intended procedure. No relevant labs, photos, and/or imaging studies were applicable for review. Correct side/site marked and visible. Medications required for procedure verified. No fire risk assessment and interventions applicable. Implant(s) inserted: Correct implant(s) confirmed including size and side. and Expiration date(s) reviewed. Sign Out: SIGN OUT (optional for EMERGENT procedures): No specimen collected. All instruments, equipment, possible retained foreign bodies accounted for. Post-procedure follow-up management communicated and Plan of Care Visit completed when applicable. PROCEDURE: Speculum placed in vagina, IUD string visualized and grasped with ring forceps. ASSESSMENT/PLAN: IUD removed without difficulty, intact, and patient tolerated procedure well. Contraception plans: Mirena IUD Reviewed pre-conception guidelines including folic acid supplementation, optimal timing of intercourse, avoidance of smoking, alcohol, exposure to environmental chemicals and need for evaluation if not within 12 months. Jaquelin Benavidez APRN.CARMINA Frank presents today for IUD insertion for contraception. Patient's last menstrual period was 01/17/2024 (exact date). GC/chlamydia: Not done: no risk factors and/or patient declines screening test: Paraguard IUD not Side effects including irregular bleeding were discussed with the patient. The patient understands that it should be removed in 8 years or sooner if the patient desires a . IUD source: office provided IUD lot #: [id number] Exp date: 01/17/2026 The cervix was prepped with betadine. The uterus sounded to 8 cm and the uterus is Midposition.. Using sterile technique, the Mirena IUD was inserted without difficulty and the string was cut to 3cm from the external os of the cervix. Patient tolerated procedure well. PLAN: Patient was advised to observe for signs and symptoms of infection including but not limited to fever, malodorous vaginal discharge and/or pain. The patient was told to check the string monthly for accurate placement. Bleeding expectations were reviewed. Follow up in one month. Jaquelin Benavidez APRN.CNM [facility] 02-28-2024 History of Present illness Narrative Frank presents for removal of IUD due to partial expulsion. UNIVERSAL PROTOCOL / SAFETY CHECKLIST Procedure to be Performed: IUD removal Sign In: A Moment of CARE was completed. Personnel directly involved with the procedure wore the appropriate PPE (Personal Protective Equipment). No special equipment needed. Patient/Surrogate Stated/Verified: PATIENT VERIFIED(optional for EMERGENT procedures): Patient name, Date of , Relevant allergies, and The intended procedure Time Out Communication: Intended patient and procedure match the source documents. Consent documented and matches the intended procedure. No relevant labs, photos, and/or imaging studies were applicable for review. Correct side/site marked and visible. Medications required for procedure verified. No fire risk assessment and interventions applicable. Implant(s) inserted: Correct implant(s) confirmed including size and side. and Expiration date(s) reviewed. Sign Out: SIGN OUT (optional for EMERGENT procedures): No specimen collected. All instruments, equipment, possible retained foreign bodies accounted for. Post-procedure follow-up management communicated and Plan of Care Visit completed when applicable. PROCEDURE: Speculum placed in vagina, IUD string visualized and grasped with ring forceps. ASSESSMENT/PLAN: IUD removed without difficulty, intact, and patient tolerated procedure well. Contraception plans: Mirena IUD Reviewed pre-conception guidelines including folic acid supplementation, optimal timing of intercourse, avoidance of smoking, alcohol, exposure to environmental chemicals and need for evaluation if not within 12 months. SANTI Bernal presents today for IUD insertion for contraception. Patient's last menstrual period was 01/17/2024 (exact date). GC/chlamydia: Not done: no risk factors and/or patient declines screening test: Paraguard IUD not Side effects including irregular bleeding were discussed with the patient. The patient understands that it should be removed in 8 years or sooner if the patient desires a . IUD source: office provided IUD lot #: [id number] Exp date: 01/17/2026 The cervix was prepped with betadine. The uterus sounded to 8 cm and the uterus is Midposition.. Using sterile technique, the Mirena IUD was inserted without difficulty and the string was cut to 3cm from the external os of the cervix. Patient tolerated procedure well. PLAN: Patient was advised to observe for signs and symptoms of infection including but not limited to fever, malodorous vaginal discharge and/or pain. The patient was told to check the string monthly for accurate placement. Bleeding expectations were reviewed. Follow up in one month. Jaquelin Benavidez APRN.CNM documented in this encounter [facility] 02-10-2024 Telephone encounter Note Jaquelin Lacy APRN.CNM [facility] Work Phone: 02-10-2024 Miscellaneous Notes Jaquelin Lacy APRN.CNM Pt has appt with VERONICA 02/11/24 & wants Paragard removed then. Pt unsure if she wants Mirena placed and states she will discuss this with VERONICA at her visit and if necessary, will schedule another appt to get placed. Whit Maxwell RN ----- Message from Jaquelin Benavidez APRN.CNM sent at 02/06/2024 12:50 PM EDT ----- Please assist patient in making appointment for paragard removal and mirena insertion if she desires. Jaquelin Benavidez APRN.CNM documented in this encounter [facility] 02-06-2024 Telephone encounter Note Pt has appt with VERONICA 02/11/24 & wants Paragard removed then. Pt unsure if she wants Mirena placed and states she will discuss this with VERONICA at her visit and if necessary, will schedule another appt to get placed. Whit Maxwell RN [facility] 02-06-2024 Telephone encounter Note ----- Message from Jaquelin Benavidez APRN.CNM sent at 02/06/2024 12:50 PM EDT ----- Please assist patient in making appointment for paragard removal and mirena insertion if she desires. Jaquelin Benavidez APRN.CNM [facility] 02-04-2024 Telephone encounter Note Patient hasn't been on mychart in over 1 year. Called and spoke to mother. [facility] patient is at work and planning to call office back during lunch break. She stated patient also wanted help setting up mychart again. Updated her phone numbers, but need updated email too. Brook Blue RN [facility] 02-04-2024 Telephone encounter Note ----- Message from Jaquelin Benavidez APRN.CNM sent at 02/04/2024 9:46 AM EDT ----- Reviewed. Zuora message sent to patient Gamal Frank, in reviewing your ultrasound, your IUD has shifted lower into the uterus, with possibility of one of the IUD arms in the uterine lining. I would recommend changing your appointment to a in person visit. I can remove the IUD and then need to decide if you want a Mirena placed or try another control option to control bleeding. Let me know your thoughts. Jaquelin Benavidez APRN.CNM [facility] 02-04-2024 Miscellaneous Notes Patient hasn't been on mychart in over 1 year. Called and spoke to mother. States patient is at work and planning to call office back during lunch break. She stated patient also wanted help setting up mychart again. Updated her phone numbers, but need updated email too. Brook Blue RN ----- Message from Jaquelin Benavidez APRN.CNM sent at 02/04/2024 9:46 AM EDT ----- Reviewed. Zuora message sent to patient Gamal Hugo, in reviewing your ultrasound, your IUD has shifted lower into the uterus, with possibility of one of the IUD arms in the uterine lining. I would recommend changing your appointment to a in person visit. I can remove the IUD and then need to decide if you want a Mirena placed or try another control option to control bleeding. Let me know your thoughts. Jaquelin Benavidez APRN.CNM documented in this encounter [facility] 02-03-2024 Note HNO ID: [id number] Author: LAURA MURRAY MD Service: ? Author Type: Physician Type: Progress Notes Filed: 02/03/2024 08:00 Note Text: Frank Woodruff is a 18 year old female who presented for stitchdown thread laster ultrasound today. Encounter Diagnosis ICD-10-CM 1. Abnormal uterine bleeding (AUB) N93.9 Please see report under imaging tab. Laura Murray MD February 03, 2024 7:57 AM [facility] 02-03-2024 History of Present illness Narrative Frank Woodruff is a 18 year old female who presented for stitchdown thread laster ultrasound today. Encounter Diagnosis ICD-10-CM 1. Abnormal uterine bleeding (AUB) N93.9 Please see report under imaging tab. Laura Murray MD February 03, 2024 7:57 AM documented in this encounter [facility] 01-28-2024 Telephone encounter Note Patient notified. Nuzhat Odom RN [facility] 01-28-2024 Miscellaneous Notes Patient notified. Nuzhat Odom RN Patient has not used mychart in over 1 year. Left message for patient to call office. Brook Blue RN ----- Message from Jaquelin Benavidez APRN.CNM sent at 01/27/2024 11:47 AM EDT ----- Positive BV, mychart message sent to patient for treatment information. Will treat with Flagyl 500mg PO BID x 7 days. Jaquelin Benavidez APRN.CNM Hi Makenah You tested positive for bacterial vaginosis. This is an imbalance of your normal bacteria. Your partner dose not need treated. I will send a prescription for Flagyl 500mg by mouth twice a day for 7 days. 1) No alcohol during treatment and for 72 hours after last dose. 2) No intercourse during treatment. 3) Probiotic by mouth once daily for 30 days or as needed. Please let me know if you have any questions. Jaquelin Benavidez APRN.CNM documented in this encounter [facility] 01-27-2024 Telephone encounter Note Patient has not used mychart in over 1 year. Left message for patient to call office. Brook Blue RN [facility] 01-27-2024 Telephone encounter Note ----- Message from Jaquelin Benavidez APRN.CNM sent at 01/27/2024 11:47 AM EDT ----- Positive BV, mychart message sent to patient for treatment information. Will treat with Flagyl 500mg PO BID x 7 days. Jaquelin Benavidez APRN.CNM Hi Makenah You tested positive for bacterial vaginosis. This is an imbalance of your normal bacteria. Your partner dose not need treated. I will send a prescription for Flagyl 500mg by mouth twice a day for 7 days. 1) No alcohol during treatment and for 72 hours after last dose. 2) No intercourse during treatment. 3) Probiotic by mouth once daily for 30 days or as needed. Please let me know if you have any questions. Jaquelin Benavidez APRN.CNM [facility] 01-24-2024 Note HNO ID: [id number] Author: JAQUELIN BENAVIDEZ APRN.CNM Service: ? Author Type: Admissions Officer Type: Progress Notes Filed: 01/31/2024 17:14 Note Text: Service Delivery Manager offered: Patient declinesEden Hugo is a 18 year old who presents for an annual gynecologic exam with complaints, heavy bleeding. Paragard in place. First two days of cycle, heavier bleeding with clots first two days of cycle, had clot size of egg. Does notice some dizziness at times. Presents: alone Menses: cycles every 30 days and 7-10 days of flow. Bleeding is lasting longer than before. Spotting on and off throughout the month. Contraception: IUD paragard HPV vaccine: No Last pap smear: never Sexually active: Yes Pain with intercourse: No Postcoital bleeding: No OB History T0 L0 SAB0 IAB0 Ectopic0 Multiple0 Live Births0 Community Program Assistant History LMP: 01/17/2024, Having periods Age at Menarche: Age at First : Age at Menopause: Community Program Assistant History Comments: Sexual Activity: Yes; Male Contraception: Condom, I.U.D. PAST MEDICAL HISTORY No date: PMH - PAST MEDICAL HISTORY OF Comment: PFO and heart murmur 11/14/09: PMH - PAST MEDICAL HISTORY OF Comment: normal color vision No date: Syncopal episodes Comment: negative workup EEG, Cardio (other than PFO), suspect vasovagalPAST SURGICAL HISTORY 07/02/2019: ABLATE HEART DYSRHYTHM FOCUS 06/20/2008: PAST SURGICAL HISTORY OF Comment: tonsils and adenoids removed - Dr Barbour FAMILY HISTORY Problem Relation Age of Onset No Known Problems Mother No Known Problems Father No Known Problems Sister No Known Problems Sister No Known Problems Brother No Known Problems Brother No Known Problems Maternal Grandmother Hypertension Maternal Grandfather No Known Problems Paternal Grandmother No Known Problems Paternal Grandfather Heart Other mguncle - of heart problem age 19 years SOCIAL HISTORY Social History Tobacco Use Smoking status: Never Smokeless tobacco: Never Vaping Use Vaping status: Never Used Substance Use Topics Alcohol use: Never Drug use: Never REVIEW OF SYSTEMS Abdomen: No bloating, early satiety, indigestion, or increased flatulence. No abdominal pain, nausea, vomiting, diarrhea, or constipation. Bladder: No dysuria, gross hematuria, urinary frequency, urinary urgency, or incontinence. Breast: No breast lumps, nipple d/c, overlying skin changes, redness or skin retraction. Allergies and current medication updated:Yes EXAM: BP 120/62 Ht 5' 6.339" (1.69m) Wt 185 lb (83.9kg) LMP 01/17/2024 BMI 29.56 kg/(m2). GENERAL: pleasant, in no apparent distress HEENT: Normocephalic, atraumatic, mucus membranes moist, and no lesions NECK: Supple, full range of motion, no adenopathy, and thyroid normal DERMATOLOGY: Normal, without lesions, non-icteric, and non-hirsute BREAST: soft, non-tender, symmetric, no dominant mass, normal nipple-areolar complex, no lymphadenopathy, and no nipple discharge CHEST: Clear to auscultation, Normal inspiratory effort, Regular rate and rhythm, and No murmurs, clicks, rubs or gallops ABDOMEN: soft, non-tender, and no masses PELVIC: external genitalia normal, normal Bartholin's glands, urethra, Sachse's glands, no vulvar lesions, no cervical lesions, good vaginal support, physiologic discharge present, normal appearing perineal body and perianal region, IUD strings visible BIMANUAL: uterus normal size, shape and consistency, no adnexal masses, and non-tender NEURO: alert and oriented x3,exam grossly non-focal EXTREMITIES: normal ASSESSMENT/PLAN: 1. Encounter for gynecological examination (general) (routine) without abnormal findings - ICD9: V72.31, ICD10: Z01.419 (primary diagnosis) - Completed pelvic and breast exam - Encouraged monthly BSE - Follow up for annual exam in one year. 2. Abnormal uterine bleeding (AUB) - ICD9: 626.9, ICD10: N93.9 - COMPLETE BLOOD COUNT AND DIFFERENTIAL - IRON AND TIBC - FERRITIN - THYROID STIMULATING HORMONE - PROLACTIN - GONORRHEA/CHLAMYDIA NAAT - MARGARET/TRICHOMONAS NAAT - BACTERIAL VAGINOSIS NAAT - PELVIC US WHI - TESTOSTERONE, FREE AND TOTAL 3. IUD check up - ICD9: V25.42, ICD10: Z30.431 4. Screen for STD (sexually transmitted disease) - ICD9: V74.5, ICD10: Z11.3 - GONORRHEA/CHLAMYDIA NAAT - MARGARET/TRICHOMONAS NAAT 1) Health maintenance: Pap starting at the age of 21. Safe sex practices reviewed. Nutrition, exercise, and routine health maintenance exams reviewed. 2) Contraception: IUD. Contraceptive options reviewed and information provided. 3) STD screening: Accepted STD check for Gonorrhea and Chlamydia. 4) Follow up one year or sooner as needed. Jaquelin Benavidez APRN.[facility] 01-24-2024 History of Present illness Narrative Service Delivery Manager offered: Patient declinesEden Hugo is a 18 year old who presents for an annual gynecologic exam with complaints, heavy bleeding. Paragard in place. First two days of cycle, heavier bleeding with clots first two days of cycle, had clot size of egg. Does notice some dizziness at times. Presents: alone Menses: cycles every 30 days and 7-10 days of flow. Bleeding is lasting longer than before. Spotting on and off throughout the month. Contraception: IUD paragard HPV vaccine: No Last pap smear: never Sexually active: Yes Pain with intercourse: No Postcoital bleeding: No OB History T0 L0 SAB0 IAB0 Ectopic0 Multiple0 Live Births0 Community Program Assistant History LMP: 01/17/2024, Having periods Age at Menarche: Age at First : Age at Menopause: Community Program Assistant History Comments: Sexual Activity: Yes; Male Contraception: Condom, I.U.D. PAST MEDICAL HISTORY No date: PMH - PAST MEDICAL HISTORY OF Comment: PFO and heart murmur 11/14/09: PMH - PAST MEDICAL HISTORY OF Comment: normal color vision No date: Syncopal episodes Comment: negative workup EEG, Cardio (other than PFO), suspect vasovagalPAST SURGICAL HISTORY 07/02/2019: ABLATE HEART DYSRHYTHM FOCUS 06/20/2008: PAST SURGICAL HISTORY OF Comment: tonsils and adenoids removed - Dr Barbour FAMILY HISTORY Problem Relation Age of Onset No Known Problems Mother No Known Problems Father No Known Problems Sister No Known Problems Sister No Known Problems Brother No Known Problems Brother No Known Problems Maternal Grandmother Hypertension Maternal Grandfather No Known Problems Paternal Grandmother No Known Problems Paternal Grandfather Heart Other mguncle - of heart problem age 19 years SOCIAL HISTORY Social History Tobacco Use Smoking status: Never Smokeless tobacco: Never Vaping Use Vaping status: Never Used Substance Use Topics Alcohol use: Never Drug use: Never REVIEW OF SYSTEMS Abdomen: No bloating, early satiety, indigestion, or increased flatulence. No abdominal pain, nausea, vomiting, diarrhea, or constipation. Bladder: No dysuria, gross hematuria, urinary frequency, urinary urgency, or incontinence. Breast: No breast lumps, nipple d/c, overlying skin changes, redness or skin retraction. Allergies and current medication updated:Yes EXAM: BP 120/62 Ht 5' 6.339" (1.69m) Wt 185 lb (83.9kg) LMP 01/17/2024 BMI 29.56 kg/(m^2). GENERAL: pleasant, in no apparent distress HEENT: Normocephalic, atraumatic, mucus membranes moist, and no lesions NECK: Supple, full range of motion, no adenopathy, and thyroid normal DERMATOLOGY: Normal, without lesions, non-icteric, and non-hirsute BREAST: soft, non-tender, symmetric, no dominant mass, normal nipple-areolar complex, no lymphadenopathy, and no nipple discharge CHEST: Clear to auscultation, Normal inspiratory effort, Regular rate and rhythm, and No murmurs, clicks, rubs or gallops ABDOMEN: soft, non-tender, and no masses PELVIC: external genitalia normal, normal Bartholin's glands, urethra, Sachse's glands, no vulvar lesions, no cervical lesions, good vaginal support, physiologic discharge present, normal appearing perineal body and perianal region, IUD strings visible BIMANUAL: uterus normal size, shape and consistency, no adnexal masses, and non-tender NEURO: alert and oriented x3,exam grossly non-focal EXTREMITIES: normal ASSESSMENT/PLAN: 1. Encounter for gynecological examination (general) (routine) without abnormal findings - ICD9: V72.31, ICD10: Z01.419 (primary diagnosis) - Completed pelvic and breast exam - Encouraged monthly BSE - Follow up for annual exam in one year. 2. Abnormal uterine bleeding (AUB) - ICD9: 626.9, ICD10: N93.9 - COMPLETE BLOOD COUNT AND DIFFERENTIAL - IRON AND TIBC - FERRITIN - THYROID STIMULATING HORMONE - PROLACTIN - GONORRHEA/CHLAMYDIA NAAT - MARGARET/TRICHOMONAS NAAT - BACTERIAL VAGINOSIS NAAT - PELVIC US WHI - TESTOSTERONE, FREE AND TOTAL 3. IUD check up - ICD9: V25.42, ICD10: Z30.431 4. Screen for STD (sexually transmitted disease) - ICD9: V74.5, ICD10: Z11.3 - GONORRHEA/CHLAMYDIA NAAT - MARGARET/TRICHOMONAS NAAT 1) Health maintenance: Pap starting at the age of 21. Safe sex practices reviewed. Nutrition, exercise, and routine health maintenance exams reviewed. 2) Contraception: IUD. Contraceptive options reviewed and information provided. 3) STD screening: Accepted STD check for Gonorrhea and Chlamydia. 4) Follow up one year or sooner as needed. Jaquelin Benavidez APRN.CNM documented in this encounter [facility] 09-14-2022 Miscellaneous Notes Order faxed to [facility]. Patient notified that order has been faxed and to contact them to schedule. Dominga Rivera RN Patient would like breast ultrasound sooner than October. Can we see if sooner opening at [facility]? Or if any sooner opening here? Thanks, Jaquelin Benavidez APRN.CNM documented in this encounter [facility] 09-14-2022 History of Present illness Narrative BREAST LUMP HISTORY: This is a 16 year old female Presents with breast mass left Mass has been present for 1 weeks Tenderness No Change in sizeNo Any history breast mass No Caffeine use Yes Last mammogram: Never Any previous breast surgery No Any family history breast disease/ breast cancer No OB History T0 L0 SAB0 IAB0 Ectopic0 Multiple0 Live Births0 PAST MEDICAL HISTORY Diagnosis Date PMH - PAST MEDICAL HISTORY OF PFO and heart murmur PMH - PAST MEDICAL HISTORY OF 11/14/09 normal color vision Syncopal episodes negative workup EEG, Cardio (other than PFO), suspect vasovagal PAST SURGICAL HISTORY Procedure Laterality Date ABLATE HEART DYSRHYTHM FOCUS 07/02/2019 PAST SURGICAL HISTORY OF 06/20/2008 tonsils and adenoids removed - Dr Barbour FAMILY HISTORY Problem Relation Age of Onset No Known Problems Mother No Known Problems Father No Known Problems Sister No Known Problems Sister No Known Problems Brother No Known Problems Brother No Known Problems Maternal Grandmother Hypertension Maternal Grandfather No Known Problems Paternal Grandmother No Known Problems Paternal Grandfather Heart Other mguncle - of heart problem age 19 years SOCIAL HISTORY Social History Tobacco Use Smoking status: Never Smokeless tobacco: Never Vaping Use Vaping Use: Never used Substance Use Topics Alcohol use: Never Drug use: Never PAST SURGICAL HISTORY Procedure Laterality Date ABLATE HEART DYSRHYTHM FOCUS 07/02/2019 PAST SURGICAL HISTORY OF 06/20/2008 tonsils and adenoids removed - Dr Barbour No current outpatient medications on file. No current facility-administered medications for this visit. Allergies As of Date: 09/14/2022 Allergen Noted Reaction BACTRIM [SULFAMETHOXAZOLE-TRIMETH* 019 Hives SULFA (SULFONAMIDE ANTIBIOTICS) 09/28/2020 Hives and Swelling Fully Assessed 07/03/2022 EXAMINATION: There is no concerning cervical, supraclavicular, or axillary lymphadenopathy. She has unilateral fibrocystic changes on the left. On the left are 2 small circumscribed masses at 4-5 near nipple border, mobile, distinct. No skin changes or nipple discharge. On the right there is no masses, skin changes or nipple discharge. IMPRESSION: 1. Solitary cyst of left breast - ICD9: 610.0, ICD10: N60.02 (primary diagnosis) 2. Fibrocystic disease of left breast - ICD9: 610.1, ICD10: N60.12 - US BREAST LTD LEFT 3. Breast pain - ICD9: 611.71, ICD10: N64.4 - US BREAST LTD LEFT Jaquelin Benavidez APRN.CNM documented in this encounter [facility] 07-03-2022 Instructions Cecy William PA-C - 07/03/2022 11:56 AM EST Images from the original note were not included. 5 to Go!TM Healthy Kids Inside & Out 5 Eat FIVE fruits and veggies a day 4 Give and get FOUR compliments a day 3 Consume THREE calcium products a day 2 Limit media time to TWO hours a day 1 Get at least ONE hour of exercise a day 0 Consume ZERO sugar-sweetened drinks Go! Be healthy, inside and out! [email or web address] Adolescent to Adult Transition Program [facility] cares about helping you and each of our adolescents and young adults make a smooth transition to adult care. If your current doctor is a infantryman, we will work with you to decide the correct age for moving your care to a doctor or other provider who takes care of adults. We suggest that this move take place before age 22. Our office policy is to prepare you to move to a doctor or other provider who takes care of adults. This includes helping you find a doctor or other provider, sending medical records, and talking about any special needs with the new doctor or other provider. If your current doctor is in family medicine, [facility] will prepare you and your family for the transition to being an adult patient. You will be able to make your own healthcare decisions and will have an adult care team that meets your personal healthcare needs. At age 18, by law, we need your agreement to discuss personal health information with your family. We understand and respect that you may want to include your family in healthcare choices and will partner with you on how and when to include your family in decisions. We will make sure you know what changes to expect. We will also strive to make sure that all care team providers know your needs. We will help you find community resources and specialty care, if needed. Having your information before you come for the first time helps us be sure we do not miss any details. If joining our practice from outside [facility], we will help you request your medical record from past doctor(s) before your first visit. We will make every effort to work with your past providers to ensure a smooth transition and experience. We are always here for you. If you have any questions or concerns, please contact your primary care team or e-mail Got Transition is the federally funded national resource center on health care transition (HCT). Its aim is to improve transition from pediatric to adult health care through the use of evidence-driven strategies for health lead caregiver, youth, young adults, and their families. www.gottransition.org [email or web address] [email or web address] documented in this encounter [facility] 07-03-2022 History of Present illness Narrative WELL VISIT PEDIATRIC 18+ YRS OLD SERVICE DATE: 07/03/2022 Frank is a 16 year old who presents today for well exam. SUBJECTIVE CONCERNS: no concerns HISTORY ACTIVE PROBLEM LIST Svt (Supraventricular Tachycardia) (Hcc) - 06/17/2019 Syncope, Vasovagal - 11/30/2015 Allergic Rhinitis - 11/28/2015 Pes Planus - 12/02/2013 PAST MEDICAL HISTORY Diagnosis Date PMH - PAST MEDICAL HISTORY OF PFO and heart murmur PMH - PAST MEDICAL HISTORY OF 11/14/09 normal color vision Syncopal episodes negative workup EEG, Cardio (other than PFO), suspect vasovagal PAST SURGICAL HISTORY Procedure Laterality Date ABLATE HEART DYSRHYTHM FOCUS 07/02/2019 PAST SURGICAL HISTORY OF 06/20/2008 tonsils and adenoids removed - Dr Barbour ALLERGIES Allergen Reactions Bactrim [Sulfametho* Hives Sulfa (Sulfonamide * Hives, Swelling Throat swelling and Hives Medications: No prescriptions on file. FAMILY HISTORY Problem Relation Age of Onset No Known Problems Mother No Known Problems Father No Known Problems Sister No Known Problems Sister No Known Problems Brother No Known Problems Brother No Known Problems Maternal Grandmother Hypertension Maternal Grandfather No Known Problems Paternal Grandmother No Known Problems Paternal Grandfather Heart Other mguncle - of heart problem age 19 years Social History Social History Narrative Not on file Smoking Exposure: Do you spend a significant amount of time with anyone who smokes? No School: Grade: College ; grades A. Physical Activity more than 1 hour of physical activity per day Screen Time totaling more than 2 hours of screen time per day. Safety: Reviewed seat belts, bike helmets, and smoke detectors Diet: -Eats 3 meals per day and 2 snacks per day -Typical beverages include water -Fruits and vegetables are eaten as snacks -# of fast food meals/week: 1 -# of days/week that family has dinner together: 5 Elimination: no concerns, normal size and consistency Dental: dental care current Sleep: -no sleep concerns Vision: No vision concerns Hearing: No hearing concerns Growth: No growth concerns Gynecological history: LMP: 06/16/2022 Cycles are regular and last 8 days. Dysmenorrhea: moderate Heavy periods: yes Substance use: none Sexual History: Attraction: male Sexually Active: Yes Number of lifetime partners: 1 Contraception: condoms every time GC/C screen within the past year: No GC/C screen since most recent partner? No Change in normal vaginal discharge: No Body image: satisfactory Screening tools reviewed and discussed with patient/[id number] and Social Determinants of Health. Please see Patient Entered Data. OBJECTIVE Physical Exam: BP 130/80 Pulse 84 Temp 36.5 C (97.7 F) (Temporal) Resp 16 Ht 167.2 cm (5' 5.83") Wt 73.4 kg (161 lb 14.4 oz) LMP 10/14/2020 BMI 26.27 kg/m Blood pressure percentiles are not available for patients who are 18 years or older. Blood pressure percentiles are not available for patients who are 18 years or older. 86 %ile (Z= 1.09) based on CDC (Girls, 2-20 Years) BMI-for-age based on BMI available as of 07/03/2022. Last BMI: Wt: 72.1 kg (159 lb) (91 %, Z= 1.31)* BMI: 25.51 kg/(m^2) Last 4 Encounter Wt Readings: Date: Wt: 07/03/2022 73.4 kg (161 lb 14.4 oz) (90 %, Z= 1.27)* 10/18/2020 72.1 kg (159 lb) (91 %, Z= 1.31)* 09/28/2020 73 kg (161 lb) (91 %, Z= 1.36)* 08/29/2020 72.6 kg (160 lb) (91 %, Z= 1.34)* Last 4 Encounter Ht Readings: Date: Ht: 07/03/2022 167.2 cm (5' 5.83") (73 %, Z= 0.62)* 09/28/2020 168.1 cm (5' 6.2") (79 %, Z= 0.81)* 06/17/2019 166 cm (5' 5.35") (71 %, Z= 0.56)* 04/02/2019 165.7 cm (5' 5.24") (71 %, Z= 0.54)* General: Well developed, No acute distress Head: normocephalic Eyes: conjunctivae/corneas clear Ears: normal external ear and canal, tympanic membranes with normal landmarks Nose: no erythema or rhinorrhea Oropharynx: moist mucous membranes, no erythema or exudate Neck: Supple, no adenopathy Spine: Back symmetric, no curvature. Resp: lungs clear to auscultation Heart: RRR, normal S1 and S2. , No murmurs Abdomen: Soft, nontender, nondistended, normal bowel sounds Genitalia: deferred Extremities: Full ROM and no swelling, erythema or tenderness Neuro: No focal deficits or abnormal findings present Skin: no rashes ASSESSMENT & PLAN: Encounter Diagnosis ICD-10-CM 1. Encounter for wellness examination in adult Z00.00 86 %ile (Z= 1.09) based on CDC (Girls, 2-20 Years) BMI-for-age based on BMI available as of 07/03/2022. Makenah is elevated range (BMI 85th% - 95th%): -Discussed how healthy eating, minimizing electronics and getting physical activity impact physical and emotional health -Avoid eating out and encouraged family meals at home Depression Screening 07/03/2022 PHQ-2 Score 2 PHQ-9 Score 2 Depression screening tool completed and reviewed. Based on score and interview, patient is not at risk for depression. Screening tool discussed with patient, and I recommended no further intervention at this time. - Discussed diet and safety. - Dental care discussed. - Bright Futures handout given (See Patient Instructions). - No immunizations were recommended to be given at this visit. Patient plans to ask mother if she has already received her second Meningitis - Follow up in one year for routine physical. 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 HD grid mapped circuit to posterolateral margin of tricuspid isthmus. Successful RF ablation. [facility] 05-02-2022 Miscellaneous Notes [facility] EP REPORT Vitals and Labs Filed Vitals: Vitals: 05/02/22 0655 BP: 124/75 Pulse: 84 Resp: 16 Temp: 37.3 C (99.1 F) Cardiology Staff Attending: Dr Davis Referring Car Dealer: Ricci Davis MD Anesthesia: Anesthesiologist:Gibson Woodard MD Anesthesia: General ESTIMATED BLOOD LOSS: Minimal ACCESS: 8F, 8F RFV COMPLICATIONS: None CONDITION AND COMMENTS Findings: Inducible IART with cycle length 380 msec and variable AV conduction. HD grid mapped circuit to posterolateral margin of tricuspid isthmus. Successful RF ablation. Ongoing plan of care. documented in this encounter [facility] 05-02-2022 Plan of care note Ongoing plan of care. [facility] 05-02-2022 Attending History and physical note Vitals: 05/02/22 0655 BP: 124/75 Pulse: 84 Resp: 16 Temp: 37.3 C (99.1 F) General: Frank appears healthy, well developed, well nourished, in no acute distress Head: atraumatic and normocephalic Eyes: PERRLA, sclera clear bilaterally Nose: No erythema or drainage noted in the nose Throat: oropharynx is clear without tonsillar inflammation or exudate Neck: Supple with full range of motion Chest: WNL Cardiac: S1 & S2 are normal Abdomen: abdomen is soft, nontender Back: WNL : Def Rectal: Def Skin: pink, warm, well perfused Lymphadenopathy: no adenopathy noted Musculoskeletal: normal tone, moves all extremities equally with full range of motion Central Nervous System: CN II-XII grossly normal __x__ H&P reviewed, patient examined, no changes have occurred since H&P completed. ____ Changes noted above in *other findings or comments CATHRYN Saldaña Source Note - Ricci Davis MD - 05/02/2022 5:08 AM EST [facility]ENTER PREPROCEDURE HISTORY AND PHYSICAL DATE OF SERVICE: 05/02/2022 PACKAGING ENGINEER: Ricci Davis MD PRIMARY CARE PHYSICIAN: Franklyn Awan MD CHIEF COMPLAINT: SVT REASON FOR HOSPITALIZATION: Electrophysiology Study and Ablation HISTORY OF PRESENT ILLNESS: Frank is a 16 y.o. female with SVT. 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 Recurrence of symptoms. Apple watch recorded both regular and irregular tachycardia, and both narrow and wide tachycardia. Symptoms more frequent lately, and she would like to try to eliminate it. REVIEW OF SYSTEMS: Constitutional: negative for recent fever or weight change Endocrine: negative for diabetes or thyroid problems EENT: negative for vision or hearing problems, recent episodes of OM, rhinorrhea or congestion, negative for recent sore throat Respiratory: negative for bronchitis, pneumonia or RSV in the past, negative for wheezing, apnea, or cyanosis Cardiac: GI: negative for FTT or any feeding issues/intolerance : negative for urinary tract problems or UTIs Musculoskeletal: negative for joint or muscle problems Skin: negative for rashes or birthmarks Hematologic/Lymphatic: negative for bleeding/clotting problems or anemia Allergy/Immunology: negative for any allergies Neurologic: negative for seizures, stroke or chronic headaches Psych: no issues ROS PAST MEDICAL HISTORY: Past Medical History: Diagnosis Date Ankle pain Headache Heart murmur Knee pain SVT (supraventricular tachycardia) Uncomplicated asthma intermittent PAST SURGICAL HISTORY: Past Surgical History: Procedure Laterality Date ABLATION OF DYSRHYTHMIC FOCUS Right 07/02/2019 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 Variable conduction.Cryo slow fibers. ADENOIDECTOMY CARDIAC SURGERY N/A 07/02/2019 CARDIAC ELECTROPHYSIOLOGY STUDY performed by Ricci Davis MD at [facility] OR ASSISTANT FACILITY MANAGER CARDIAC SURGERY N/A 07/02/2019 CARDIAC ABLATION PROCEDURE performed by Ricci Davis MD at [facility] OR ASSISTANT FACILITY MANAGER TONSILLECTOMY HISTORY: Noncontributory FAMILY HISTORY: Family History Problem Relation Age of Onset Asthma Brother PSYCHO/SOCIAL HISTORY: Frank lives with mother No other issues DEVELOPMENTAL HISTORY: Milestones: All met as expected DIET HISTORY: Age appropriate / normal for age DRUG/FOOD ALLERGIES: Allergies Allergen Reactions Bactrim [Sulfamethoxazole-Trimethoprim] Anaphylaxis Sulfa Antibiotics Anaphylaxis IMMUNIZATIONS: There is no immunization history on file for this patient. MEDICATIONS: No medications prior to admission. VITAL SIGNS: There were no vitals filed for this visit. PHYSICAL EXAM: Physical Exam General: Frank appears healthy, well developed, well nourished, in no acute distress Head: atraumatic and normocephalic Eyes: pupils equal, round, and reactive to light Neck: supple Chest: breath sounds are clear to auscultation bilaterally without rales, rhonchi, or wheezes Cardiac: regular rate and rhythm, normal S1 and S2, no murmur, rub, or gallop, peripheral pulses strong and equal Abdomen: abdomen is soft, nontender, and nondistended without hepatosplenomegaly or masses Back: negative : exam deferred Rectal: exam deferred Skin: pink, warm, well perfused Lymphadenopathy: no adenopathy noted Musculoskeletal: normal tone, moves all extremities equally with full range of motion Central Nervous System: neurologically appropriate for age ASSESSMENT: Frank is a 16 y.o. female with recurrence of SVT. Mechanism unclear. PLAN: EPS and ablation . [facility] 05-02-2022 History and physical note Vitals: 05/02/22 0655 BP: 124/75 Pulse: 84 Resp: 16 Temp: 37.3 C (99.1 F) General: Frank appears healthy, well developed, well nourished, in no acute distress Head: atraumatic and normocephalic Eyes: PERRLA, sclera clear bilaterally Nose: No erythema or drainage noted in the nose Throat: oropharynx is clear without tonsillar inflammation or exudate Neck: Supple with full range of motion Chest: WNL Cardiac: S1 & S2 are normal Abdomen: abdomen is soft, nontender Back: WNL : Def Rectal: Def Skin: pink, warm, well perfused Lymphadenopathy: no adenopathy noted Musculoskeletal: normal tone, moves all extremities equally with full range of motion Central Nervous System: CN II-XII grossly normal __x__ H&P reviewed, patient examined, no changes have occurred since H&P completed. ____ Changes noted above in *other findings or comments CATHRYN Saldaña Source Note - Ricci Davis MD - 05/02/2022 5:08 AM EST HEART CENTER PREPROCEDURE HISTORY AND PHYSICAL DATE OF SERVICE: 05/02/2022 PACKAGING ENGINEER: Ricci Davis MD PRIMARY CARE PHYSICIAN: Franklyn Awan MD CHIEF COMPLAINT: SVT REASON FOR HOSPITALIZATION: Electrophysiology Study and Ablation HISTORY OF PRESENT ILLNESS: Farnk is a 16 y.o. female with SVT. 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 Recurrence of symptoms. Apple watch recorded both regular and irregular tachycardia, and both narrow and wide tachycardia. Symptoms more frequent lately, and she would like to try to eliminate it. REVIEW OF SYSTEMS: Constitutional: negative for recent fever or weight change Endocrine: negative for diabetes or thyroid problems EENT: negative for vision or hearing problems, recent episodes of OM, rhinorrhea or congestion, negative for recent sore throat Respiratory: negative for bronchitis, pneumonia or RSV in the past, negative for wheezing, apnea, or cyanosis Cardiac: GI: negative for FTT or any feeding issues/intolerance : negative for urinary tract problems or UTIs Musculoskeletal: negative for joint or muscle problems Skin: negative for rashes or birthmarks Hematologic/Lymphatic: negative for bleeding/clotting problems or anemia Allergy/Immunology: negative for any allergies Neurologic: negative for seizures, stroke or chronic headaches Psych: no issues ROS PAST MEDICAL HISTORY: Past Medical History: Diagnosis Date Ankle pain Headache Heart murmur Knee pain SVT (supraventricular tachycardia) Uncomplicated asthma intermittent PAST SURGICAL HISTORY: Past Surgical History: Procedure Laterality Date ABLATION OF DYSRHYTHMIC FOCUS Right 07/02/2019 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 Variable conduction.Cryo slow fibers. ADENOIDECTOMY CARDIAC SURGERY N/A 07/02/2019 CARDIAC ELECTROPHYSIOLOGY STUDY performed by Ricci Davis MD at [facility] OR ASSISTANT FACILITY MANAGER CARDIAC SURGERY N/A 07/02/2019 CARDIAC ABLATION PROCEDURE performed by Ricci Davis MD at [facility] OR ASSISTANT FACILITY MANAGER TONSILLECTOMY HISTORY: Noncontributory FAMILY HISTORY: Family History Problem Relation Age of Onset Asthma Brother PSYCHO/SOCIAL HISTORY: Frank lives with mother No other issues DEVELOPMENTAL HISTORY: Milestones: All met as expected DIET HISTORY: Age appropriate / normal for age DRUG/FOOD ALLERGIES: Allergies Allergen Reactions Bactrim [Sulfamethoxazole-Trimethoprim] Anaphylaxis Sulfa Antibiotics Anaphylaxis IMMUNIZATIONS: There is no immunization history on file for this patient. MEDICATIONS: No medications prior to admission. VITAL SIGNS: There were no vitals filed for this visit. PHYSICAL EXAM: Physical Exam General: Frank appears healthy, well developed, well nourished, in no acute distress Head: atraumatic and normocephalic Eyes: pupils equal, round, and reactive to light Neck: supple Chest: breath sounds are clear to auscultation bilaterally without rales, rhonchi, or wheezes Cardiac: regular rate and rhythm, normal S1 and S2, no murmur, rub, or gallop, peripheral pulses strong and equal Abdomen: abdomen is soft, nontender, and nondistended without hepatosplenomegaly or masses Back: negative : exam deferred Rectal: exam deferred Skin: pink, warm, well perfused Lymphadenopathy: no adenopathy noted Musculoskeletal: normal tone, moves all extremities equally with full range of motion Central Nervous System: neurologically appropriate for age ASSESSMENT: Frank is a 16 y.o. female with recurrence of SVT. Mechanism unclear. PLAN: EPS and ablation . HEART CENTER PREPROCEDURE HISTORY AND PHYSICAL DATE OF SERVICE: 05/02/2022 PACKAGING ENGINEER: Ricci Davis MD PRIMARY CARE PHYSICIAN: Franklyn Awan MD CHIEF COMPLAINT: SVT REASON FOR HOSPITALIZATION: Electrophysiology Study and Ablation HISTORY OF PRESENT ILLNESS: Frank is a 16 y.o. female with SVT. 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 Recurrence of symptoms. Apple watch recorded both regular and irregular tachycardia, and both narrow and wide tachycardia. Symptoms more frequent lately, and she would like to try to eliminate it. REVIEW OF SYSTEMS: Constitutional: negative for recent fever or weight change Endocrine: negative for diabetes or thyroid problems EENT: negative for vision or hearing problems, recent episodes of OM, rhinorrhea or congestion, negative for recent sore throat Respiratory: negative for bronchitis, pneumonia or RSV in the past, negative for wheezing, apnea, or cyanosis Cardiac: GI: negative for FTT or any feeding issues/intolerance : negative for urinary tract problems or UTIs Musculoskeletal: negative for joint or muscle problems Skin: negative for rashes or birthmarks Hematologic/Lymphatic: negative for bleeding/clotting problems or anemia Allergy/Immunology: negative for any allergies Neurologic: negative for seizures, stroke or chronic headaches Psych: no issues ROS PAST MEDICAL HISTORY: Past Medical History: Diagnosis Date Ankle pain Headache Heart murmur Knee pain SVT (supraventricular tachycardia) Uncomplicated asthma intermittent PAST SURGICAL HISTORY: Past Surgical History: Procedure Laterality Date ABLATION OF DYSRHYTHMIC FOCUS Right 07/02/2019 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 Variable conduction.Cryo slow fibers. ADENOIDECTOMY CARDIAC SURGERY N/A 07/02/2019 CARDIAC ELECTROPHYSIOLOGY STUDY performed by Ricci Davis MD at [facility] OR ASSISTANT FACILITY MANAGER CARDIAC SURGERY N/A 07/02/2019 CARDIAC ABLATION PROCEDURE performed by Ricci Davis MD at [facility] OR ASSISTANT FACILITY MANAGER TONSILLECTOMY HISTORY: Noncontributory FAMILY HISTORY: Family History Problem Relation Age of Onset Asthma Brother PSYCHO/SOCIAL HISTORY: Frank lives with mother No other issues DEVELOPMENTAL HISTORY: Milestones: All met as expected DIET HISTORY: Age appropriate / normal for age DRUG/FOOD ALLERGIES: Allergies Allergen Reactions Bactrim [Sulfamethoxazole-Trimethoprim] Anaphylaxis Sulfa Antibiotics Anaphylaxis IMMUNIZATIONS: There is no immunization history on file for this patient. MEDICATIONS: No medications prior to admission. VITAL SIGNS: There were no vitals filed for this visit. PHYSICAL EXAM: Physical Exam General: Frank appears healthy, well developed, well nourished, in no acute distress Head: atraumatic and normocephalic Eyes: pupils equal, round, and reactive to light Neck: supple Chest: breath sounds are clear to auscultation bilaterally without rales, rhonchi, or wheezes Cardiac: regular rate and rhythm, normal S1 and S2, no murmur, rub, or gallop, peripheral pulses strong and equal Abdomen: abdomen is soft, nontender, and nondistended without hepatosplenomegaly or masses Back: negative : exam deferred Rectal: exam deferred Skin: pink, warm, well perfused Lymphadenopathy: no adenopathy noted Musculoskeletal: normal tone, moves all extremities equally with full range of motion Central Nervous System: neurologically appropriate for age ASSESSMENT: Frank is a 16 y.o. female with recurrence of SVT. Mechanism unclear. PLAN: EPS and ablation . documented in this encounter [facility] 05-02-2022 Note HEART CENTER PREPROC EDURE HISTORY AND PHYSICAL DATE OF SERVICE: 05/02/2022 PACKAGING ENGINEER: Ricci Davis MD PRIMARY CARE PHYSICIAN: Franklyn Awan MD CHIEF COMPLAINT: SVT REASON FOR HOSPITALIZATION: Electrophysiology Study and Ablation HISTORY OF PRESENT ILLNESS: Frank is a 16 y.o. female with SVT. 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 Recurrence of symptoms. Apple watch recorded both regular and irregular tachycardia, and both narrow and wide tachycardia. Symptoms more frequent lately, and she would like to try to eliminate it. REVIEW OF SYSTEMS: Constitutional: negative for recent fever or weight change Endocrine: negative for diabetes or thyroid problems EENT: negative for vision or hearing problems, recent episodes of OM, rhinorrhea or congestion, negative for recent sore throat Respiratory: negative for bronchitis, pneumonia or RSV in the past, negative for wheezing, apnea, or cyanosis Cardiac: GI: negative for FTT or any feeding issues/intolerance : negative for urinary tract problems or UTIs Musculoskeletal: negative for joint or muscle problems Skin: negative for rashes or birthmarks Hematologic/Lymphatic: negative for bleeding/clotting problems or anemia Allergy/Immunology: negative for any allergies Neurologic: negative for seizures, stroke or chronic headaches Psych: no issues ROS PAST MEDICAL HISTORY: Past Medical History: Diagnosis Date Ankle pain Headache Heart murmur Knee pain SVT (supraventricular tachycardia) Uncomplicated asthma intermittent PAST SURGICAL HISTORY: Past Surgical History: Procedure Laterality Date ABLATION OF DYSRHYTHMIC FOCUS Right 07/02/2019 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 Variable conduction.Cryo slow fibers. ADENOIDECTOMY CARDIAC SURGERY N/A 07/02/2019 CARDIAC ELECTROPHYSIOLOGY STUDY performed by Ricci Davis MD at [facility] OR ASSISTANT FACILITY MANAGER CARDIAC SURGERY N/A 07/02/2019 CARDIAC ABLATION PROCEDURE performed by Ricci Davis MD at [facility] OR ASSISTANT FACILITY MANAGER TONSILLECTOMY HISTORY: Noncontributory FAMILY HISTORY: Family History Problem Relation Age of Onset Asthma Brother PSYCHO/SOCIAL HISTORY: Frank lives with mother No other issues DEVELOPMENTAL HISTORY: Milestones: All met as expected DIET HISTORY: Age appropriate / normal for age DRUG/FOOD ALLERGIES: Allergies Allergen Reactions Bactrim [Sulfamethoxazole-Trimethoprim] Anaphylaxis Sulfa Antibiotics Anaphylaxis IMMUNIZATIONS: There is no immunization history on file for this patient. MEDICATIONS: No medications prior to admission. VITAL SIGNS: There were no vitals filed for this visit. PHYSICAL EXAM: Physical Exam General: Frank appears healthy, well developed, well nourished, in no acute distress Head: atraumatic and normocephalic Eyes: pupils equal, round, and reactive to light Neck: supple Chest: breath sounds are clear to auscultation bilaterally without rales, rhonchi, or wheezes Cardiac: regular rate and rhythm, normal S1 and S2, no murmur, rub, or gallop, peripheral pulses strong and equal Abdomen: abdomen is soft, nontender, and nondistended without hepatosplenomegaly or masses Back: negative : exam deferred Rectal: exam deferred Skin: pink, warm, well perfused Lymphadenopathy: no adenopathy noted Musculoskeletal: normal tone, moves all extremities equally with full range of motion Central Nervous System: neurologically appropriate for age ASSESSMENT: Frank is a 16 y.o. female with recurrence of SVT. Mechanism unclear. PLAN: EPS and ablation . [facility] 05-02-2022 History and physical note HEART CENTER PREPROCEDURE HISTORY AND PHYSICAL DATE OF SERVICE: 05/02/2022 PACKAGING ENGINEER: Ricci Davis MD PRIMARY CARE PHYSICIAN: Franklyn Awan MD CHIEF COMPLAINT: SVT REASON FOR HOSPITALIZATION: Electrophysiology Study and Ablation HISTORY OF PRESENT ILLNESS: Frank is a 16 y.o. female with SVT. 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 Recurrence of symptoms. Apple watch recorded both regular and irregular tachycardia, and both narrow and wide tachycardia. Symptoms more frequent lately, and she would like to try to eliminate it. REVIEW OF SYSTEMS: Constitutional: negative for recent fever or weight change Endocrine: negative for diabetes or thyroid problems EENT: negative for vision or hearing problems, recent episodes of OM, rhinorrhea or congestion, negative for recent sore throat Respiratory: negative for bronchitis, pneumonia or RSV in the past, negative for wheezing, apnea, or cyanosis Cardiac: GI: negative for FTT or any feeding issues/intolerance : negative for urinary tract problems or UTIs Musculoskeletal: negative for joint or muscle problems Skin: negative for rashes or birthmarks Hematologic/Lymphatic: negative for bleeding/clotting problems or anemia Allergy/Immunology: negative for any allergies Neurologic: negative for seizures, stroke or chronic headaches Psych: no issues ROS PAST MEDICAL HISTORY: Past Medical History: Diagnosis Date Ankle pain Headache Heart murmur Knee pain SVT (supraventricular tachycardia) Uncomplicated asthma intermittent PAST SURGICAL HISTORY: Past Surgical History: Procedure Laterality Date ABLATION OF DYSRHYTHMIC FOCUS Right 07/02/2019 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 Variable conduction.Cryo slow fibers. ADENOIDECTOMY CARDIAC SURGERY N/A 07/02/2019 CARDIAC ELECTROPHYSIOLOGY STUDY performed by Ricci Davis MD at [facility] OR ASSISTANT FACILITY MANAGER CARDIAC SURGERY N/A 07/02/2019 CARDIAC ABLATION PROCEDURE performed by Ricci Davis MD at [facility] OR ASSISTANT FACILITY MANAGER TONSILLECTOMY HISTORY: Noncontributory FAMILY HISTORY: Family History Problem Relation Age of Onset Asthma Brother PSYCHO/SOCIAL HISTORY: Frank lives with mother No other issues DEVELOPMENTAL HISTORY: Milestones: All met as expected DIET HISTORY: Age appropriate / normal for age DRUG/FOOD ALLERGIES: Allergies Allergen Reactions Bactrim [Sulfamethoxazole-Trimethoprim] Anaphylaxis Sulfa Antibiotics Anaphylaxis IMMUNIZATIONS: There is no immunization history on file for this patient. MEDICATIONS: No medications prior to admission. VITAL SIGNS: There were no vitals filed for this visit. PHYSICAL EXAM: Physical Exam General: Frank appears healthy, well developed, well nourished, in no acute distress Head: atraumatic and normocephalic Eyes: pupils equal, round, and reactive to light Neck: supple Chest: breath sounds are clear to auscultation bilaterally without rales, rhonchi, or wheezes Cardiac: regular rate and rhythm, normal S1 and S2, no murmur, rub, or gallop, peripheral pulses strong and equal Abdomen: abdomen is soft, nontender, and nondistended without hepatosplenomegaly or masses Back: negative : exam deferred Rectal: exam deferred Skin: pink, warm, well perfused Lymphadenopathy: no adenopathy noted Musculoskeletal: normal tone, moves all extremities equally with full range of motion Central Nervous System: neurologically appropriate for age ASSESSMENT: Frank is a 16 y.o. female with recurrence of SVT. Mechanism unclear. PLAN: EPS and ablation . [facility] 04-26-2022 Note CARDIAC CATHETERIZAT ION CONFERENCE DISCUSSION Date of Discussion: 04/26/2022 Name: Frank Woodruff : 2005 Age: 16 y.o. Car Dealer: Dr. Davis Discussed by: Dr. Davis Discussion: 16 year old with supraventricular tachycardia status post ablation with recurrence. Recommendations/Plan: Plan for electrophysiology study and ablation. Summarized By: Jude Unger MD [facility] 02-21-2022 Note NEUROLOGY CLINIC NEW PATIENT EVALUATION Date of service: 02/21/2022 Frank Woodruff : 2005 Primary Care Provider: Franklyn Awan MD CHIEF COMPLAINT: syncope HPI: Frank is a 16 y.o. female who presents today for neurologic evaluation accompanied by her mother. 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 She also has a history of SVT. She is followed by Dr. Davis in cardiology; last seen in 02/2020, but with frequent updates via [facility] and telephone calls. She underwent cryoablation in June 2019. After her procedure she continued to have palpitations, but her mother reports resolution of SVT following ablation. In regards to her syncope, her workup suggested vasovagal syncope. Previously syncope episodes were more frequenct. Now syncope occurs about three to four times a year. Precipitating factors for her syncope include: illness, anxiety, menstruating, seeing blood. They do not occur with exercise. She can often predict when they may occur and she can get herself to lie down and put her feet up. Typical syncopal events are brief, lasting ~20 seconds and within a short period afterward she is back to her baseline. She is diaphoretic with events. However, within this past year, she has had two syncopal episodes which were not typical for her. In May 2021, she had her wisdom teeth out (without sedation, but local anesthetic). She took a nap afterwards and then woke up to take her packing out (which was bloody). She felt weak as if she may pass out so she laid down and put her feet up. She was diaphoretic. She called for her mom and by the time her mom came in, she had "passed out". Mom came in and she noticed her eyes starting to roll upwards. Her arms tightened upwards towards her chest and legs tightened up.There was no clonic movements. She had increased salivation and frothing at the mouth. Her eyes then deviated towards the left. Duration was approximately 2minutes. During this time, mom felt her pulse, which was weak. Afterwards, it took about ten minutes until she returned to baseline and was able to talk with mom. She then slept on and off for the remainder of the day. They did not notify PCP or cardiology following this event. Then, most recently, the first week of January 2022, she was at her [facility] when she had another syncopal episode. She had gotten sick and vomited once in the morning. She was dehydrated. Around lunchtime, she went to walk out the [facility] door when she didn't feel good and said she was going to pass out. She dropped her head down and she slumped forward. They laid her down on the ground and mom rolled her on her side/feet up. Eyes start rolling up and to the left and head was deviated up and left. She was pale and frothing at the mouth. She had clonic movements of her arms and legs stiffened. She was incontinent of urine during this time. Duration was about 3 minutes. Pulse was weak and thready. After a few minutes, she was more aware of her surroundings. She was unable to get up for about an hour afterwards due to light-headedness. She recalls that she felt hot but temperature was not taken. She slept most of the day until the next morning. No further episodes since January. Current Medications: Current Outpatient Medications Medication Sig Dispense Refill Acetaminophen 160 MG CHEW Take 650 mg by mouth every 4 hours as needed for Pain Adapalene-Benzoyl Peroxide (EPIDUO FORTE) 0.3-2.5 % GEL Apply to affected area Lzmttnf-Hnqkqdtcsbkse-Hvblyxok (EXCEDRIN MIGRAINE PO) Take by mouth Loratadine (CLARITIN) 10 MG CAPS Take by mouth No current facility-administered medications for this visit. Allergies: Allergies Allergen Reactions Bactrim [Sulfamethoxazole-Trimethoprim] Anaphylaxis Sulfa Antibiotics Anaphylaxis Past Medical History: Past Medical History: Diagnosis Date Ankle pain Headache Heart murmur Knee pain SVT (supraventricular tachycardia) Uncomplicated asthma intermittent Past Surgical History: Past Surgical History: Procedure Laterality Date ABLATION OF DYSRHYTHMIC FOCUS Right 07/02/2019 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 Variable conduction.Cryo slow fibers. ADENOIDECTOMY CARDIAC SURGERY N/A 07/02/2019 CARDIAC ELECTROPHYSIOLOGY STUDY performed by Ricci Davis MD at [facility] OR ASSISTANT FACILITY MANAGER CARDIAC SURGERY N/A 07/02/2019 CARDIAC ABLATION PROCEDURE performed by Ricci Davis MD at [facility] OR ASSISTANT FACILITY MANAGER TONSILLECTOMY Wisom teeth was May 2021 history: Full term, no complications with or delivery. History Weight: 4.196 kg Delivery Method: Vaginal Gestation Age: 39 wks No complications No concerns for developmental delays. Fam (more content not included)... [facility] Evaluation note Diagnosis AVNRT (AV reagan re-entry tachycardia)- Primary Other specified cardiac dysrhythmias AVNRT (AV reagan re-entry tachycardia) Other specified cardiac dysrhythmias [facility] Diagnosis Encounter for wellness examination in adult- Primary [facility] Diagnosis Solitary cyst of left breast- Primary Solitary cyst of breast Fibrocystic disease of left breast Diffuse cystic mastopathy Breast pain Mastodynia [facility] Diagnosis Encounter for gynecological examination (general) (routine) without abnormal findings- Primary Abnormal uterine bleeding (AUB) IUD check up Surveillance of previously prescribed intrauterine contraceptive device Screen for STD (sexually transmitted disease) Screening examination for venereal disease [facility] Diagnosis Abnormal uterine bleeding (AUB) [facility] Diagnosis Encounter for IUD removal- Primary Encounter for removal of intrauterine contraceptive device [facility] Diagnosis Encounter for IUD removal- Primary Encounter for removal of intrauterine contraceptive device Encounter for IUD insertion Encounter for insertion of intrauterine contraceptive device [facility] Diagnosis Surveillance of previously prescribed intrauterine contraceptive device- Primary Acute blood loss anemia Acute posthemorrhagic anemia [facility]* Diagnosis Well adult exam- Primary Routine general medical examination at a health care facility Lymphadenopathy, generalized Enlargement of lymph nodes Iron deficiency anemia due to chronic blood loss Iron deficiency anemia secondary to blood loss (chronic) Encounter for screening examination for other mental health and behavioral disorders Screening for depression documented in this encounter [facility] note* Diagnosis Iron deficiency anemia due to chronic blood loss- Primary Iron deficiency anemia secondary to blood loss (chronic) [facility] noteNo assessment information availableWThe [facility] Work Phone: Reason for referral (narrative)* Diagnostic Procedure Only (Routine) - Pending Review Specialty Diagnoses / Procedures Referred By Jerry maravilla Referred To Contact [facility] Diagnoses Fibrocystic disease of left breast Breast pain Procedures US BREAST LTD LEFT US BREAST UNI REAL TIME WITH IMAGE LIMITED Jaquelin Benavidez APRN.CNM [address] [place] [address] [facility] [address] [place] [address] Referral ID Status Reason Start Date Expiration Date Visits Requested Visits Authorized [id number] Pending Review Auto-Generat ed Referral 09/14/2022 10/14/[address] [facility] for referral (narrative)* Diagnostic Procedure Only (Routine) - Closed Specialty Diagnoses / Procedures Referred By Jerry maravilla Referred To Contact [facility] Diagnoses Abnormal uterine bleeding (AUB) Procedures PELVIC US WHI US PELVIC NONOBSTETRIC REAL-TIME IMAGE COMPLETE Jaquelin Benavidez APRN.CNM [address] [place] [address] [facility] [address] [place] [address] Referral ID Status Reason Start Date Expiration Date V isits Requested Visits Authorized [id number] Closed Auto-Generate d Referral 01/24/2024 01/23/[address] [facility] for referral (narrative)* Outpatient Procedure (Routine) - New Request Specialty Diagnoses / Procedures Referred By Contsatish t Referred To Contact [facility] Diagnoses Encounter for IUD removal Procedures REMOVE INTRAUTERINE DEVICE REMOVE INTRAUTERINE DEVICE Jaquelin Benavidez APRN.CNM [address] [place] [address] [address] Referral ID Status Reason Start Date Expiration Date Visits Requested Visits Authorized [id number] New Request Auto-Generat ed Referral 02/10/2024 02/05/[address] [facility] for referral (narrative)* Outpatient Procedure (Routine) - New Request Specialty Diagnoses / Procedures Referred By Jerry t Referred To Contact [facility] Diagnoses Encounter for IUD insertion Procedures INSERT INTRAUTERINE DEVICE INSERT INTRAUTERINE DEVICE Jaquelin Benavidez APRN.CNM [address] [place] [address] [address] Referral ID Status Reason Start Date Expiration Date Visits Requested Visits Authorized [id number] New Request Auto-Generat ed Referral 02/27/2025 1 1 * Outpatient Procedure (Routine) - New Request Specialty Diagnoses / Procedures Referred By Contac t Referred To Contact [facility] Diagnoses Encounter for IUD removal Procedures REMOVE INTRAUTERINE DEVICE REMOVE INTRAUTERINE DEVICE Jaquelin Benavidez APRN.CNM [address] [place] [address] [address] Referral ID Status Reason Start Date Expiration Date Visits Requested Visits Authorized [id number] New Request Auto-Generat ed Referral 02/27/2025 1 1 [facility]No reason for referral information availableWThe [facility] Work Phone: Reason for visit Narrative* Diagnostic Procedure Only (Routine) - Closed Specialty Diagnoses / Procedures Referred By Jerry maravilla Referred To Contact [facility] Diagnoses Abnormal uterine bleeding (AUB) Procedures PELVIC US WHI US PELVIC NONOBSTETRIC REAL-TIME IMAGE COMPLETE Jaquelin Benavidez APRN.CNMeghan [address] [place] [address] [facility] [address] [place] [address] Referral ID Status Reason Start Date Expiration Date V isits Requested Visits Authorized [id number] Closed Auto-Generate d Referral 01/24/2024 01/23/2025 1 1 [facility] Advance Directives No Advanced Directives Records FoundDocuments on File Type Date Recorded Patient Yarn Handler Expl anation Advance Directives and Livin g Will 05/02/2022 6:53 AM Summary Purpose Family History No Family History Records FoundNo Family History Records FoundNo Family History Records FoundNo Family History Records FoundNo Family History Records Found Chief Complaint and Reason for Visit Chief Complaint Admit Date SKIN- FASTING November 04, 2024 10:4 7am Additional Source Comments Reason for Visit (unrecogniz ed section and content) Specialty Diagnoses / Procedures Referred By Jerry maravilla Referred To Contact Diagnoses 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) [I47.1] Procedures MD COMPRE ELECTROPHYSIOL XM W/LEFT ATRIAL PACNG/REC MD STIM/PACING HEART POST IV DRUG INFU MD INTRACARDIAC ELECTROPHYSIOLOGIC 3D MAPPING MD LEFT HEART CATH BY TRANSEPTAL PUNCTURE MD COMPRE EP EVAL ABLTJ 3D MAPG TX SVT CARDIAC ELECTROPHYSIOLOGY STUDY CARDIAC ABLATION PROCEDURE [place] [address] Referral ID Status Reason Start Date Expiration Date Visits Re quested Visits Authorized [id number] 1 1 Reason Comments Well Child 16yr [facility] Specialty Diagnoses / Procedures Referred By Jerry maravilla Referred To Contact Pediatrics / [facility]IMARY [facility]ARE PEDIATR[facility] Diagnoses Follow-up examination 16 year physical Procedures OFFICE/OUTPATIENT ESTABLISHED MOD MDM 30-39 MIN 4C EST WELL Self Cecy William PA-C [address] [facility] [place] [address] Referral ID Status Reason Start Date Expiration Date Visits Re quested Visits Authorized [id number] Closed 07/03/2022 05/19/2023 1 1 Reason Comments Breast Problem Breast lump on left breast - x1 week Specialty Diagnoses / Procedures Referred By Contac t Referred To Contact GLOBAL IMPLEMENTATION MANAGER Diagnoses Breast lump breast lump Procedures OFFICE/OUTPATIENT ESTABLISHED HIGH MDM 40-54 MIN EST WHI PATIENT Self Jaquelin Benavidez APRN.CN [address] [place] [address] Referral ID Status Reason Start Date Expiration Date Visits Re quested Visits Authorized [id number] Closed 09/14/2022 05/19/2023 1 1 Reason Comments Future Appointment Reason Comments Results Reason Comments Well Woman Specialty Diagnoses / Procedures Referred By Contac t Referred To Contact Diagnoses annual Procedures OFFICE VISIT, EST PT., LEVEL 2 TC Jaquelin Benavidez APRN.CNM [address] [place] [address] [facility] [place] [address] Referral ID Status Reason Start Date Expiration Date V isits Requested Visits Authorized [id number] Closed Patient Cleared - Qualified 100% FAS 01/09/2024 01/09/2024 99 99 Reason Comments Appointment Reason Onset Date Comments IUD Removal 02/28/2024 Insertion Of IUD 02/28/2024 Specialty Diagnoses / Procedures Referred By Contsatish t Referred To Contact [facility] Diagnoses Abnormal uterine bleeding (AUB) Malpositioned intrauterine device (IUD), initial encounter Procedures REMOVE INTRAUTERINE DEVICE REMOVE INTRAUTERINE DEVICE Jaquelin Benavidez APRN.CNM [address] [place] [address] [facility] [address] [place] [address] Referral ID Status Reason Start Date Expiration Date V isits Requested Visits Authorized [id number] Closed Auto-Generate d Referral 02/06/2024 02/05/2025 1 1 Reason Comments IUD check Reason Comments Blood Management Reason Comments Establish Care Scheduled Active and Recently Administ ered Medications (unrecognized section and content) Medication Order 04/30/2022 05/01/2022 05/02/2022 acetaminophen (TYLENOL) tablet 1,000 mg (COMPLETED) 1,000 mg (13.7 mg/kg/DOSE), Oral, ONCE, 1 dose, On Sat05/02/22 at 1300, PLEASE only order WHOLE tablets, not partial ones. Otherwise, the order goes to pharmacy and takes longer., Pre-op 1419 (Given - Provid er: Nuzhat Manzanares RN) Continuous Medication Order 04/30/2022 05/01/2022 05/02/2022 isoproterenol 6 mcg/mL in Dextrose 5% 50 mL infusion 0.05 mcg/kg/min 73.2 kg (36.6 mL/hr), Intravenous, CONTINUOUS, Starting on Sat05/02/22 at 0800, Until Sat05/02/22 at 1939, Please send to the presurg area for the labor trainer 0800 (Due) PRN Medication Order 04/30/2022 05/01/2022 05/02/2022 isoproterenol 0.3 mg in NaCl 0.9% 48 mL (CANCELED) PRN, Starting on Sat05/02/22 at 1137, Intra-op 1137 (Given - Provid er: Ricci Davis MD) Lactated Ringers IV (CANCELED) CONTINUOUS PRN, Intravenous, Starting on Sat05/02/22 at 0805, Intra-op 0805 (New Bag - Prov ider: DULCE Stafford)0830 (Rate/Dose Change - Provider: DULCE Stafford)0918 (Rate/Dose Change - Provider: DULCE Stafford)1028 (Rate/Dose Change - Provider: DULCE Stafford)1142 (Stopped - Provider: DULCE Stafford)1143 (Restarted from Bag - Provider: Roberto Lawson RN)1343 (Rate/Dose Change - Provider: Anu Pichardo RN)1347 (Paused - Provider: Anu M Marino, RN)1347 (Rate/Dose Change - Provider: Anu Pichardo RN)1530 (Stopped - Provider: Anu Pichardo RN) NaCl 0.9% + Heparin 2 units/mL 500 mL in NaCl 0.9% for irrigation 500 mL (CANCELED) PRN, Starting on Sat05/02/22 at 0809, Intra-op 0809 (Given - Provid er: Ricci Davis MD - Comment: used throughout the procedure to flush the catheters and sheaths) NaCl 0.9% PosiFlush 2 mL 2 mL PRN (0.0273 ml/kg/DOSE), Intravenous, at 0-999 mL/hr, Line Care, Starting on Sat05/02/22 at 1221, For 90 days Care Teams (unrecognized sec tion and content) Rock Breaker Relationship Specialty Start Date End Date Franklyn Awan MD [address] [place], [place] [address] PCP - General Pediatrics 05/02/22 Rock Breaker Relationship Specialty Start Date End Date Franklyn Awan MD [address] [place], [place] [address] PCP - General Pediatrics 11/28/15 Rock Breaker Relationship Specialty Start Date End Date Franklyn Awan MD [address] [place] [address] PCP - General Pediatrics 11/28/15 Rock Breaker Relationship Specialty Start Date End Date Franklyn Awan MD [address] [place] [address] PCP - General Pediatrics 11/28/15 Rock Breaker Relationship Specialty Start Date End Date Franklyn Awan MD [address] [place], [place] [address] PCP - General Pediatrics 11/28/15 Rock Breaker Relationship Specialty Start Date End Date Franklyn Awan MD [facility] [place], [place] [address] PCP - General Pediatrics 11/28/15 Rock Breaker Relationship Specialty Start Date End Date rFanklyn Awan MD [address] [place], [place] [address] PCP - General Pediatrics 11/28/15 Rock Breaker Relationship Specialty Start Date End Date Franklyn Awan MD [address] [place], [place] [address] PCP - General Pediatrics 11/28/15 Rock Breaker Relationship Specialty Start Date End Date Franklyn Awan MD [address] [place], [place] [address] PCP - General Pediatrics 11/28/15 Rock Breaker Relationship Specialty Start Date End Date Franklyn Awan MD [address] [place], [place] [address] PCP - General Pediatrics 11/28/15 Rock Breaker Relationship Specialty Start Date End Date Franklyn Awan MD [address] [place], [place] [address] PCP - General Pediatrics 11/28/15 Rock Breaker Relationship Specialty Start Date End Date Franklyn Awan MD [address] [place], [place] [address] PCP - General Pediatrics 11/28/15 Rock Breaker Relationship Specialty Start Date End Date Jeannie Soliz APRN.SENIOR ASSET MANAGER [address] [place], [place] [address] PCP - General Family Medicine 08/25/24 Rock Breaker Relationship Specialty Start Date End Date Jeannie Soliz APRN.SENIOR ASSET MANAGER [address] [place], [place] [address] PCP - General Family Medicine 08/25/24 Rock Breaker Relationship Specialty Start Date End Date Jeannie Soliz APRN.SENIOR ASSET MANAGER [address] [place] [address] PCP - General Family Medicine 08/25/24 Team Status: Active Member Role Status Dates Dr. Ricci Carreon MD Family Provider Active Dr. Ricci Carreon MD Primary Care Provider Active Team Status: Inactive Member Role Status Dates Dr. Ricci Carreon MD Primary Care Provider Active Start: November 04, 2024 End: November 04, 2024 ZaynabJEWEL MedeirosC Attending Provider Active S tart: November 04, 2024 End: November 04, 2024 Zaynabpaolo BRANDON PA-C Referring Provider Active S tart: November 04, 2024 End: November 04, 2024 Team Status: Active Member Role/Relationship Status Dates Dr. Ricci Carreon MD Family Provider Active Dr. Ricci Carreon MD Primary Care Provider Active Team Status: Inactive Member Role/Relationship Status Dates Dr. Ricci Carreon MD Primary Care Provider Active Start: November 04, 2024 End: November 04, 2024 Zaynabpaolo BRANDON PA-C Attending Provider Active S tart: November 04, 2024 End: November 04, 2024 Zaynabpaolo BRANDON PA-C Referring Provider Active S tart: November 04, 2024 End: November 04, 2024 Team Status: Inactive Member Role/Relationship Status Dates Dr. Ricci Carreon MD Primary Care Provider Active Start: November 23, 2024 End: November 23, 2024 Zaynabpaolo BRANDON PA-C Attending Provider Active S tart: November 23, 2024 End: November 23, 2024 Zaynabpaolo BRANDON PA-C Referring Provider Active S tart: November 23, 2024 End: November 23, 2024 Source Comments (unrecognize d section and content) In the event this informatio n is protected by the Federal Confidentiality of Alcohol and Drug Abuse Patient Records regulations: The Federal rules restrict any use of the information to criminally investigate or prosecute any alcohol or drug abuse patient.[facility] the event this information is protected by the Federal Confidentiality of Alcohol and Drug Abuse Patient Records regulations: The Federal rules restrict any use of the information to criminally investigate or prosecute any alcohol or drug abuse patient.[facility] the event this information is protected by the Federal Confidentiality of Alcohol and Drug Abuse Patient Records regulations: The Federal rules restrict any use of the information to criminally investigate or prosecute any alcohol or drug abuse patient.[facility] the event this information is protected by the Federal Confidentiality of Alcohol and Drug Abuse Patient Records regulations: The Federal rules restrict any use of the information to criminally investigate or prosecute any alcohol or drug abuse patient.[facility] the event this information is protected by the Federal Confidentiality of Alcohol and Drug Abuse Patient Records regulations: The Federal rules restrict any use of the information to criminally investigate or prosecute any alcohol or drug abuse patient.[facility] the event this information is protected by the Federal Confidentiality of Alcohol and Drug Abuse Patient Records regulations: The Federal rules restrict any use of the information to criminally investigate or prosecute any alcohol or drug abuse patient.[facility] the event this information is protected by the Federal Confidentiality of Alcohol and Drug Abuse Patient Records regulations: The Federal rules restrict any use of the information to criminally investigate or prosecute any alcohol or drug abuse patient.[facility] the event this information is protected by the Federal Confidentiality of Alcohol and Drug Abuse Patient Records regulations: The Federal rules restrict any use of the information to criminally investigate or prosecute any alcohol or drug abuse patient.[facility] the event this information is protected by the Federal Confidentiality of Alcohol and Drug Abuse Patient Records regulations: The Federal rules restrict any use of the information to criminally investigate or prosecute any alcohol or drug abuse patient.[facility] the event this information is protected by the Federal Confidentiality of Alcohol and Drug Abuse Patient Records regulations: The Federal rules restrict any use of the information to criminally investigate or prosecute any alcohol or drug abuse patient.[facility] the event this information is protected by the Federal Confidentiality of Alcohol and Drug Abuse Patient Records regulations: The Federal rules restrict any use of the information to criminally investigate or prosecute any alcohol or drug abuse patient.[facility] the event this information is protected by the Federal Confidentiality of Alcohol and Drug Abuse Patient Records regulations: The Federal rules restrict any use of the information to criminally investigate or prosecute any alcohol or drug abuse patient.[facility] the event this information is protected by the Federal Confidentiality of Alcohol and Drug Abuse Patient Records regulations: The Federal rules restrict any use of the information to criminally investigate or prosecute any alcohol or drug abuse patient.[facility] the event this information is protected by the Federal Confidentiality of Alcohol and Drug Abuse Patient Records regulations: The Federal rules restrict any use of the information to criminally investigate or prosecute any alcohol or drug abuse patient.[facility] the event this information is protected by the Federal Confidentiality of Alcohol and Drug Abuse Patient Records regulations: The Federal rules restrict any use of the information to criminally investigate or prosecute any alcohol or drug abuse patient.[facility] the event this information is protected by the Federal Confidentiality of Alcohol and Drug Abuse Patient Records regulations: The Federal rules restrict any use of the information to criminally investigate or prosecute any alcohol or drug abuse patient.[facility] INFORMATION SOURCE (unrecogn ized section and content) DATE CREATED AUTHOR 09/07/2022 [facility] DATE CREATED AUTHOR AUTHOR'S ORGANIZ ATION 02/23/2023 [facility] ([place]) DATE CREATED AUTHOR AUTHOR'S ORGANIZ ATION 08/13/2024 [facility] DATE CREATED AUTHOR AUTHOR'S ORGANIZ ATION 08/27/2024 [facility] DATE CREATED AUTHOR AUTHOR'S ORGANIZ ATION 12/10/2024 [facility] Goals (unrecognized section and content) Goals may be documented in a n alternate sectionGoals may be documented in an alternate section FOR RECORDS PERTAINING TO PATIENTS WHO ARE OR HAVE BEEN ENROLLED IN A CHEMICAL DEPENDENCY/SUBSTANCEABUSE PROGRAM, SOME INFORMATION MAY BE OMITTED. This clinical summary was aggregated from multiple sources. Caution should be exercised in using it in the provision of clinical care. This summary normalizes information from multiple sources, and as a consequence, information in this document may materially change the coding, format and clinical context of patient data. In addition, data may be omitted in some cases. CLINICAL DECISIONS SHOULD BE BASED ON THE PRIMARY CLINICAL RECORDS. [employer] [facility]. provides no warranty or guarantee of the accuracy or completeness of information in this document.
== END | disposition home or self-care (01) ==
LOC: MTLAB 11:33
PROVIDERS: PCP Pediatrics; Referring Provider Physician Assistant; Visit Provider Physician Assistant
DX: Z79.899 Other long term (current) drug therapy (principal)
CPT/HCPCS: 36415; 80061; 84450; 84460